=== PATIENT | female | born 1960 | race Two or more races ===

== ENCOUNTER 2020-05-31 09:01 | Outpatient (REF) | payer OTHER, SELFPAY ==
[2020-05-31 10:56] LABS: Alanine Aminotransferase 23 U/L (0-31); Albumin Level 4.5 g/dL (3.5-5.0); Alkaline Phosphatase 49 U/L (39-117); Anion Gap 11 (12-20); Aspartate Amino Transferase 25 U/L (5-31); Bilirubin Total 0.8 mg/dL (0.0-1.0); Blood Urea Nitrogen 10 mg/dL (9-16); Calcium 9.3 mg/dL (8.4-10.2); Carbon Dioxide 30 mmol/L (22-29); Chloride 102 mmol/L (96-108); Cholesterol 191 mg/dL; Estimated Glomerular Filt Rate > 60; Glucose Fasting 94 mg/dL (60-99); HDL Cholesterol 49 mg/dL; LDL Cholesterol Calculated 113 mg/dl; Sodium 139 mmol/L (135-145); Total Protein 7.6 g/dL (6.5-8.0); Triglycerides 146 mg/dL
[2020-05-31 11:33] LABS: T4 Thyroxine 9.1 ug/dL (4.5-12.0)
== END 2020-05-31 09:02 | disposition home or self-care (01) ==
LOC: HO.10HDL 09:01
PROVIDERS: Visit Provider Internal Medicine
DX: E03.9 Hypothyroidism, unspecified (principal); E78.00 Pure hypercholesterolemia, unspecified; K21.9 Gastro-esophageal reflux disease without esophagitis
CPT/HCPCS: 36415; 80053; 80061; 84436; 84443

== ENCOUNTER 2020-06-20 09:28 | Outpatient (REF) | payer OTHER, SELFPAY ==
--- NOTE | ~2020-06-20 | MM_ITS ---
EXAMINATION: MM SCREENING DIGITAL BREAST TOMOSYNTHESIS, BILATERAL CLINICAL INFORMATION: Screening. Asymptomatic. The lifetime risk of breast cancer based on the Tyrer-Cuzick Model is 12%. COMPARISON: Mammography: 06/15/2019, 03/05/2018, 01/29/2017 TECHNIQUE: Digital breast tomosynthesis is performed in both the craniocaudal and mediolateral oblique views along with computer-aided detection (CAD). Synthesized 2D images are generated from the tomosynthesis. FINDINGS: There are scattered areas of fibroglandular density (ACR BI-RADS breast composition Category b). Breast tissue composition borders on heterogeneously dense. There are no significant masses, abnormal calcifications, or other abnormalities. There are scattered punctate uniform round calcifications again present more numerous on right, similar to prior studies. The axilla and skin contours are unremarkable. MM/MM tomosynthesis screening BI IMPRESSION: No mammographic evidence of malignancy. ASSESSMENT: BI-RADS 2: Benign RECOMMENDATION: Routine annual mammography screening. This patient's information was entered into a reminder system with a target due date for their next mammogram.
== END 2020-06-20 09:29 | disposition home or self-care (01) ==
LOC: HO.MAMMO 09:28
PROVIDERS: PCP Internal Medicine; Visit Provider Internal Medicine
DX: Z12.31 Encounter for screening mammogram for malignant neoplasm of breast (principal)
CPT/HCPCS: 77063; 77067

== ENCOUNTER 2020-07-18 07:40 | Outpatient (REF) | payer OTHER, SELFPAY ==
[2020-07-18 08:25] LABS: COVID-19 Test Negative (Negative)
== END 2020-07-18 07:41 | disposition home or self-care (01) ==
LOC: HO.LAB 07:40
PROVIDERS: Visit Provider Internal Medicine
DX: Z20.822 Contact with and (suspected) exposure to COVID-19 (principal)
CPT/HCPCS: 36415; 87635; C9803

== ENCOUNTER 2020-09-22 09:01 | Outpatient (REF) | payer OTHER, SELFPAY ==
[2020-09-22 10:19] LABS: MANUAL DIFF FLAG NO
[2020-09-22 10:27] LABS: Basophils Percent Auto 0.6 % (0-2); Eosinophils Absolute Auto 0.1 X10*3/uL (0.0-0.4); Eosinophils Percent Auto 2.6 % (0-4); Hematocrit 40.2 % (37-47); Hemoglobin 13.4 g/dl (12.0-16.0); Imm Gran Abs Auto 0.01 X10*3/uL (0.00-0.03); Imm Gran Pct Auto 0.2 % (0.0-0.4); Lymphocytes Absolute Auto 1.6 X10*3/uL (1.2-4.9); Lymphocytes Percent Auto 32.6 % (20-40); Mean Corpuscular HGB Conc 33.3 g/dl (31.0-35.0); Mean Corpuscular Hemoglobin 30.8 pg (27.0-33.0); Mean Corpuscular Volume 92.4 fL (80-98); Mean Platelet Volume 10.3 fL (9.4-12.3); Monocytes Absolute Auto 0.4 X10*3/uL (0.1-1.2); Monocytes Percent Auto 8.2 % (2-11); Neutrophils Absolute Auto 2.8 X10*3/uL (2.0-8.3); Neutrophils Percent Auto 55.8 % (45-73); Platelet Count 320 X10*3/uL (160-400); Red Blood Count 4.35 X10*6/uL (4.20-5.50); Red Cell Distribution Width 12.1 % (11.0-16.0)
[2020-09-22 11:14] LABS: Thyroid Stimulating Hormone 1.57 uIU/mL (0.32-4.0)
== END 2020-09-22 09:02 | disposition home or self-care (01) ==
LOC: HO.10HDL 09:01
PROVIDERS: PCP Internal Medicine; Visit Provider Internal Medicine
DX: E03.9 Hypothyroidism, unspecified (principal)
CPT/HCPCS: 36415; 84439; 84443; 85025

== ENCOUNTER → 2020-10-27 13:40 | Outpatient (BNVA) | payer OTHER, SELFPAY | PROVIDERS: PCP Internal Medicine; Referring Provider Internal Medicine; Visit Provider Nurse Practitioner | DX: K58.9 Irritable bowel syndrome, unspecified (principal); R14.0 Abdominal distension (gaseous); K21.9 Gastro-esophageal reflux disease without esophagitis; K64.9 Unspecified hemorrhoids; K29.50 Unspecified chronic gastritis without bleeding | CPT/HCPCS: 99212 ==

== ENCOUNTER 2021-04-04 13:36 | Outpatient (REF) | payer OTHER, SELFPAY | END 2021-04-04 13:37 | disposition home or self-care (01) | LOC: HO.LAB 13:36 | PROVIDERS: PCP Internal Medicine; Visit Provider Obstetrics & Gynecology | DX: N84.1 Polyp of cervix uteri (principal) | CPT/HCPCS: 57500; 88305 ==

== ENCOUNTER 2021-05-08 09:30 | Outpatient (REF) | payer OTHER, SELFPAY ==
[2021-05-08 10:39] LABS: MANUAL DIFF FLAG NO
[2021-05-08 10:46] LABS: Basophils Percent Auto 0.7 % (0-2); Eosinophils Absolute Auto 0.2 X10*3/uL (0.0-0.4); Hematocrit 40.4 % (37.0-47.0); Hemoglobin 13.6 g/dl (12.0-16.0); Imm Gran Abs Auto 0.01 X10*3/uL (0.00-0.03); Imm Gran Pct Auto 0.2 % (0.0-0.4); Lymphocytes Percent Auto 35.6 % (20-40); Mean Corpuscular HGB Conc 33.7 g/dl (31.0-35.0); Mean Corpuscular Hemoglobin 31.5 pg (27.0-33.0); Mean Corpuscular Volume 93.5 fL (80.0-98.0); Mean Platelet Volume 10.6 fL (9.4-12.3); Monocytes Absolute Auto 0.4 X10*3/uL (0.1-1.2); Monocytes Percent Auto 7.2 % (2-11); Neutrophils Percent Auto 53.3 % (45-73); Platelet Count 296 X10*3/uL (160-400); Red Blood Count 4.32 X10*6/uL (4.20-5.50); Red Cell Distribution Width 11.9 % (11.0-16.0); White Blood Count 5.7 X10*3/uL (4.8-10.8)
[2021-05-08 11:09] LABS: Appearance Urine CLEAR; Color Urine YELLOW; Glucose Urine UA NEG (NEG); Leukocyte Esterase Urine NEG (NEG); Nitrite Urine NEG (NEG); Specific Gravity - Urine 1.025 (1.005-1.025); Urine Blood NEG (NEG); Urine Ketones NEG (NEG); Urine Protein NEG (NEG-TRACE)
[2021-05-08 11:26] LABS: Alanine Aminotransferase 19 U/L (0-31); Albumin Level 4.3 g/dL (3.5-5.0); Alkaline Phosphatase 51 U/L (39-117); Anion Gap 11 (12-20); Aspartate Amino Transferase 19 U/L (5-31); Bilirubin Total 0.6 mg/dL (0.0-1.0); Blood Urea Nitrogen 11 mg/dL (9-16); Calcium 9.4 mg/dL (8.4-10.2); Carbon Dioxide 30 mmol/L (22-29); Chloride 105 mmol/L (96-108); Cholesterol 173 mg/dL; Estimated Glomerular Filt Rate > 60; Glucose Random 95 mg/dL (60-115); HDL Cholesterol 41 mg/dL; LDL Cholesterol Calculated 103 mg/dl; Potassium 4.2 mmol/L (3.3-5.1); Sodium 142 mmol/L (135-145); Total Protein 7.5 g/dL (6.5-8.0); Triglycerides 149 mg/dL
[2021-05-08 11:32] LABS: Vitamin D 25-OH Total 25.5 ng/mL (>30)
[2021-05-08 11:33] LABS: Folate 11.3 ng/mL (> or = 4.0); Vitamin B12 854 pg/mL (200-900)
[2021-05-08 11:48] LABS: RBC Urine 0-2 /HPF (0); Squamous Epithelial Cell Urine 1+ /LPF; WBC Urine 0-2 /HPF (0-4)
== END 2021-05-08 09:31 | disposition home or self-care (01) ==
LOC: HO.10HDL 09:30
PROVIDERS: Visit Provider Internal Medicine
DX: E78.00 Pure hypercholesterolemia, unspecified (principal)
CPT/HCPCS: 36415; 80053; 80061; 81001; 82306; 82607; 82746; 84439; 84443; 85025

== ENCOUNTER 2021-06-21 09:05 | Outpatient (REF) | payer OTHER, SELFPAY ==
--- NOTE | ~2021-06-21 | US_ITS ---
EXAMINATION: US ABDOMEN COMPLETE CLINICAL INFORMATION: Right upper quadrant pain. COMPARISON: Ultrasound abdomen complete 03/19/2019 and 10/25/2017. CT of abdomen and pelvis 05/24/2017. TECHNIQUE: Real-time imaging of the abdominal viscera. Technically limited study secondary to bowel gas. FINDINGS: PANCREAS: The pancreas is obscured by overlying gas. ABDOMINAL AORTA: The entire abdominal aorta is of normal caliber. INFERIOR VENA CAVA: Visualized portions are normal. LIVER: The liver is normal in size. The liver contour is normal. The liver is increased echogenicity. No focal hepatic lesion. There is no intrahepatic biliary duct dilatation seen. GALLBLADDER: Normal. The gallbladder is physiologically distended without evidence of stones, sludge, polyps, wall thickening or pericholecystic fluid. COMMON BILE DUCT: Normal in caliber measuring 0.4 cm in diameter. RIGHT KIDNEY: Normal. No hydronephrosis. No renal calculi or focal parenchymal lesions. The kidney measures 10.8 cm in maximum dimension. LEFT KIDNEY: Normal. No hydronephrosis. No renal calculi or focal parenchymal lesions. The kidney measures 10.2 cm in maximum dimension. SPLEEN: There is anechoic cyst measuring 1.5 x 1.0 x 1.3 cm. On the last ultrasound, it measured 1.2 x 1 0 x 1.2 cm. The spleen measures 9.5 cm in maximum dimension. FREE FLUID: None. US/US abdomen complete IMPRESSION: Mild hepatic steatosis without focal lesion. This splenic cyst measuring 1.5 cm. Minimally increased since the last time. It measured 1.2 cm.
== END 2021-06-21 09:06 | disposition home or self-care (01) ==
LOC: HO.US 09:05
PROVIDERS: Visit Provider Internal Medicine
DX: R79.89 Other specified abnormal findings of blood chemistry (principal); R10.11 Right upper quadrant pain
CPT/HCPCS: 76700

== ENCOUNTER 2021-06-21 12:00 | Outpatient (REF) | payer OTHER, SELFPAY ==
--- NOTE | ~2021-06-21 | MM_ITS ---
EXAMINATION: MM SCREENING DIGITAL BREAST TOMOSYNTHESIS, BILATERAL CLINICAL INFORMATION: Screening. Asymptomatic. The lifetime risk of breast cancer based on the Tyrer-Cuzick Model is 11%. COMPARISON: Mammography: 06/20/2020, 06/15/2019, 03/05/2018 TECHNIQUE: Digital breast tomosynthesis is performed in both the craniocaudal and mediolateral oblique views along with computer-aided detection (CAD). Synthesized 2D images are generated from the tomosynthesis. FINDINGS: There are scattered areas of fibroglandular density (ACR BI-RADS breast composition Category b). There are no significant masses, abnormal calcifications, or other abnormalities. Parenchymal pattern is similar to prior studies. There is no developing density or architectural abnormality. The axilla and skin contours are unremarkable. No significant changes. MM/MM tomosynthesis screening BI IMPRESSION: No mammographic evidence of malignancy. ASSESSMENT: BI-RADS 1: Negative RECOMMENDATION: Routine annual mammography screening. This patient's information was entered into a reminder system with a target due date for their next mammogram.
== END 2021-06-21 12:01 | disposition home or self-care (01) ==
LOC: HO.MAMMO 12:00
PROVIDERS: PCP Internal Medicine; Visit Provider Internal Medicine
DX: Z12.31 Encounter for screening mammogram for malignant neoplasm of breast (principal)
CPT/HCPCS: 77063; 77067

== ENCOUNTER 2021-09-07 10:13 | Outpatient (REF) | payer OTHER, SELFPAY ==
--- NOTE | ~2021-09-07 | XR_ITS ---
EXAMINATION: XR CHEST CLINICAL INFORMATION: Covid 19 COMPARISON: 12/15/2017 TECHNIQUE: 2 views of the chest were obtained. FINDINGS: The lungs are well expanded. There is no focal consolidation, edema, or effusion. No pneumothorax. The cardiomediastinal silhouette is within normal limits. No acute osseous abnormality. XR/XR chest 2V IMPRESSION: Clear lungs.
[2021-09-07 10:26] LABS: MANUAL DIFF FLAG NO
[2021-09-07 11:18] LABS: Basophils Absolute Auto 0.1 X10*3/uL (0.0-0.2); Basophils Percent Auto 0.8 % (0-2); Eosinophils Absolute Auto 0.1 X10*3/uL (0.0-0.4); Eosinophils Percent Auto 1.8 % (0-4); Hematocrit 40.4 % (37.0-47.0); Hemoglobin 13.8 g/dl (12.0-16.0); Imm Gran Abs Auto 0.02 X10*3/uL (0.00-0.03); Imm Gran Pct Auto 0.3 % (0.0-0.4); Lymphocytes Absolute Auto 1.8 X10*3/uL (1.2-4.9); Lymphocytes Percent Auto 29.2 % (20-40); Mean Corpuscular HGB Conc 34.2 g/dl (31.0-35.0); Mean Corpuscular Hemoglobin 31.1 pg (27.0-33.0); Mean Platelet Volume 10.5 fL (9.4-12.3); Monocytes Absolute Auto 0.5 X10*3/uL (0.1-1.2); Monocytes Percent Auto 8.8 % (2-11); Neutrophils Absolute Auto 3.5 x10*3/uL (2.0-8.3); Neutrophils Percent Auto 59.1 % (45-73); Platelet Count 292 X10*3/uL (160-400); Red Blood Count 4.44 X10*6/uL (4.20-5.50); Red Cell Distribution Width 12.1 % (11.0-16.0)
[2021-09-07 12:23] LABS: Free T4 (Free Thyroxine) 1.45 ng/dL (0.71-1.85); Thyroid Stimulating Hormone 0.67 uIU/mL (0.32-4.0)
[2021-09-07 12:28] LABS: Folate 12.1 ng/mL (> or = 4.0); Vitamin B12 1323 pg/mL (200-900)
[2021-09-07 12:29] LABS: Blood Urea Nitrogen 11 mg/dL (9-16)
[2021-09-07 12:31] LABS: Alanine Aminotransferase 25 U/L (0-31); Albumin Level 4.5 g/dL (3.5-5.0); Alkaline Phosphatase 52 U/L (39-117); Anion Gap 13 (12-20); Aspartate Amino Transferase 24 U/L (5-31); Bilirubin Total 0.9 mg/dL (0.0-1.0); Carbon Dioxide 29 mmol/L (22-29); Chloride 102 mmol/L (96-108); Estimated Glomerular Filt Rate > 60; Glucose Random 90 mg/dL (60-115); Potassium 4.5 mmol/L (3.3-5.1); Sodium 139 mmol/L (135-145); Total Protein 7.9 g/dL (6.5-8.0)
== END 2021-09-07 10:14 | disposition home or self-care (01) ==
LOC: HO.LAB 10:13
PROVIDERS: PCP Internal Medicine; Visit Provider Internal Medicine
DX: E03.9 Hypothyroidism, unspecified (principal); U07.1 COVID-19
CPT/HCPCS: 36415; 71046; 80053; 82607; 82746; 84439; 84443; 85025

== ENCOUNTER 2022-04-18 08:51 | Outpatient (REF) | payer OTHER, SELFPAY ==
--- NOTE | 2022-04-18 09:51 | PFT_ITS ---
FLOWS: FEV1 104% of predicted at 2.68 L. FVC 97% of predicted at 3.15 L. FEV1 to FVC ratio of 0.85. No bronchodilator response. LUNG VOLUMES: Total lung capacity 94% of predicted at 4.77 L. Residual volume 73% of predicted at 1.45 L. Slow vital capacity 107% of predicted at 3.31 L. Expiratory reserve volume 71% of predicted at 0.63 L. Diffusion capacity is normal. IMPRESSION: No obstructive or restrictive ventilatory defect. No bronchodilator response. Essentially normal pulmonary function test. MD ESME Lewis/MODL / [id number]
== END 2022-04-18 08:52 | disposition home or self-care (01) ==
LOC: HO.RESP 08:51
PROVIDERS: PCP Internal Medicine; Visit Provider Internal Medicine
DX: R06.02 Shortness of breath (principal)
CPT/HCPCS: 94060; 94727; 94729

== ENCOUNTER 2022-05-23 10:56 | Outpatient (REF) | payer OTHER, SELFPAY ==
[2022-05-23 17:43] LABS: CT PCR NOT DETECTED (Not Detect.); NG PCR NOT DETECTED (Not Detect.)
[2022-05-24 13:15] LABS: BV Int Neg Control Negative (Negative); BV Int Pos Control Positive (Positive)
[2022-05-28 05:24] LABS: HPV mRNA E6/E7 rflx Not Detected (Not Detected)
== END 2022-05-23 10:57 | disposition home or self-care (01) ==
LOC: HO.LNP 10:56
PROVIDERS: PCP Internal Medicine; Visit Provider Advanced Practice Midwife
DX: Z01.419 Encounter for gynecological examination (general) (routine) without abnormal findings (principal); K64.9 Unspecified hemorrhoids; M79.10 Myalgia, unspecified site; Z79.899 Other long term (current) drug therapy
CPT/HCPCS: 0353U; 87480; 87510; 87624; 87660; 88142

== ENCOUNTER 2022-05-27 08:11 | Outpatient (REF) | payer OTHER, SELFPAY ==
[2022-05-27 08:22] LABS: MANUAL DIFF FLAG NO
[2022-05-27 08:26] LABS: Basophils Percent Auto 0.7 % (0-2); Eosinophils Absolute Auto 0.1 X10*3/uL (0.0-0.4); Eosinophils Percent Auto 1.6 % (0-4); Hemoglobin 13.7 g/dl (12.0-16.0); Imm Gran Abs Auto 0.01 X10*3/uL (0.00-0.03); Imm Gran Pct Auto 0.2 % (0.0-0.4); Lymphocytes Percent Auto 36.6 % (20-40); Mean Corpuscular HGB Conc 34.3 g/dl (31.0-35.0); Mean Corpuscular Hemoglobin 31.4 pg (27.0-33.0); Mean Corpuscular Volume 91.5 fL (80.0-98.0); Mean Platelet Volume 9.9 fL (9.4-12.3); Monocytes Absolute Auto 0.4 X10*3/uL (0.1-1.2); Monocytes Percent Auto 7.2 % (2-11); Neutrophils Percent Auto 53.7 % (45-73); Platelet Count 288 X10*3/uL (160-400); Red Blood Count 4.37 X10*6/uL (4.20-5.50); Red Cell Distribution Width 11.9 % (11.0-16.0); White Blood Count 5.6 X10*3/uL (4.8-10.8)
[2022-05-27 08:56] LABS: Alanine Aminotransferase 18 U/L (0-31); Albumin Level 4.3 g/dL (3.5-5.0); Alkaline Phosphatase 46 U/L (39-117); Anion Gap 13 (12-20); Aspartate Amino Transferase 18 U/L (5-31); Bilirubin Total 0.7 mg/dL (0.0-1.0); Blood Urea Nitrogen 12 mg/dL (9-16); Calcium 9.4 mg/dL (8.4-10.2); Carbon Dioxide 28 mmol/L (22-29); Chloride 104 mmol/L (96-108); Cholesterol 182 mg/dL; Estimated Glomerular Filt Rate > 60; Glucose Random 99 mg/dL (60-115); HDL Cholesterol 44 mg/dL; LDL Cholesterol Calculated 113 mg/dl; Sodium 141 mmol/L (135-145); Total Protein 7.3 g/dL (6.5-8.0); Triglycerides 129 mg/dL
[2022-05-27 09:24] LABS: Thyroid Stimulating Hormone 1.46 uIU/mL (0.32-4.0); Vitamin B12 700 pg/mL (200-900); Vitamin D 25-OH Total 26.9 ng/mL (>30)
== END 2022-05-27 08:12 | disposition home or self-care (01) ==
LOC: HO.LAB 08:11
PROVIDERS: PCP Internal Medicine; Visit Provider Internal Medicine
DX: E03.9 Hypothyroidism, unspecified (principal); E78.00 Pure hypercholesterolemia, unspecified
CPT/HCPCS: 36415; 80053; 80061; 82306; 82607; 82746; 84439; 84443; 85025

== ENCOUNTER 2022-06-25 08:16 | Outpatient (REF) | payer OTHER, SELFPAY ==
--- NOTE | ~2022-06-25 | MM_ITS ---
EXAMINATION: MM SCREENING DIGITAL BREAST TOMOSYNTHESIS, BILATERAL CLINICAL INFORMATION: Screening. Asymptomatic. The lifetime risk of breast cancer based on the Tyrer-Cuzick Model is 11%. COMPARISON: Mammography: 06/21/2021, 06/20/2020, 06/15/2019 TECHNIQUE: Digital breast tomosynthesis is performed in both the craniocaudal and mediolateral oblique views along with computer-aided detection (CAD). Synthesized 2D images are generated from the tomosynthesis. FINDINGS: There are scattered areas of fibroglandular density (ACR BI-RADS breast composition Category b). There are no significant masses, abnormal calcifications, or other abnormalities. Breast tissue composition borders on heterogeneously dense. No architectural abnormality or developing density or significant change from prior studies. The axilla and skin contours are unremarkable. MM/MM tomosynthesis screening BI IMPRESSION: No mammographic evidence of malignancy. ASSESSMENT: BI-RADS 1: Negative RECOMMENDATION: Routine annual mammography screening. This patient's information was entered into a reminder system with a target due date for their next mammogram.
== END 2022-06-25 08:17 | disposition home or self-care (01) ==
LOC: HO.MAMMO 08:16
PROVIDERS: PCP Internal Medicine; Visit Provider Internal Medicine
DX: Z12.31 Encounter for screening mammogram for malignant neoplasm of breast (principal)
CPT/HCPCS: 77063; 77067

== ENCOUNTER → 2022-08-23 10:41 | Outpatient (BNVA) | payer OTHER, SELFPAY | PROVIDERS: PCP Internal Medicine; Visit Provider Nurse Practitioner Family | DX: Z12.11 Encounter for screening for malignant neoplasm of colon (principal) | CPT/HCPCS: 99202 ==

== ENCOUNTER 2022-11-17 21:03 | Emergency (ER) | payer OTHER, SELFPAY ==
--- NOTE | ~2022-11-17 | CT_ITS ---
EXAMINATION: CT ABDOMEN AND PELVIS WITH CONTRAST CLINICAL INFORMATION: Epigastric pain. COMPARISON: 05/24/2017. TECHNIQUE: Multidetector volumetric images were obtained from the superior aspect of the liver through the pubic symphysis following administration 85 mL of Omnipaque 350 intravenous contrast. Sagittal and coronal reformatted images were obtained on the technologist's workstation. Oral contrast: No This CT examination was performed using dose optimization techniques as appropriate, variously including the following: *Automated exposure control *Adjustment of mA and/or kV according to patient size (this includes techniques or standardized protocols for targeted exams where dose is matched to indication/reason for exam; i.e. extremities or head) *Use of iterative reconstruction technique DLP: 537 mGy-cm FINDINGS: LUNG BASES: The visualized lung bases are unremarkable. LIVER, GALLBLADDER, AND BILIARY TREE: The liver is normal in size, shape, and attenuation. No focal hepatic lesion or biliary ductal dilatation is present. The gallbladder is unremarkable with no evidence of radiopaque gallstones, gallbladder wall thickening, or obvious pericholecystic inflammatory changes. PANCREAS: Unremarkable. SPLEEN: There is a 1.1 cm cyst inferior spleen. ADRENAL GLANDS: Unremarkable. KIDNEYS AND URETERS: The kidneys are normal in size, shape, and attenuation. No hydronephrosis, hydroureter, or calculi seen. No perinephric stranding. BLADDER: Unremarkable. GASTROINTESTINAL TRACT: The small and large bowel are unremarkable. The appendix is unremarkable. ABDOMINAL WALL: No significant hernia is appreciated. LYMPH NODES: Normal. VASCULAR: Unremarkable. PELVIC VISCERA: Unremarkable. OSSEOUS STRUCTURES: There is mild diffuse thoracolumbar disc degenerative change with mild curvature to the left. CT/CT abdomen pelvis w IV con IMPRESSION: No significant abnormality identified. Fleischner guidelines were followed.
[2022-11-17 21:32] VITALS: BP 153/79; PULSE 64; RESP 18; TEMP 36.1; O2SAT 98; BMI 27.6
--- NOTE | 2022-11-17 22:02 | ECG_ITS ---
Test Reason : ABDOMIAL PAIN Blood Pressure : / mmHG Vent. Rate : 061 BPM Atrial Rate : 061 BPM P-R Int : 154 ms QRS Dur : 084 ms QT Int : 448 ms P-R-T Axes : 064 004 026 degrees QTc Int : 450 ms Normal sinus rhythm Normal ECG When compared with ECG of 24-MAY-2017 01:07, No significant change was found Referred By: Jada Timmons Electronically Signed By:ELOISA CASTANEDA MD
--- NOTE | 2022-11-17 22:06 | ED_ITS ---
HPI - Abdominal Pain General Chief Complaint: Abdominal Pain Stated Complaint: abd pain/headache Time Seen by Provider: 11/17/22 21:57 Source: patient Mode of arrival: ambulatory Limitations: no limitations History of Present Illness HPI narrative: Patient comes to the emergency room complaining of epigastric pain nausea and vomiting that started approximately 3-1/2 hours ago. Patient states that she ate dinner and less than 1/2 hour later, she started having intense epigastric pain and headache. Patient vomited once. Patient denies diarrhea, no flank pain, no dysuria or hematuria, no fever Related Data Home Medications Medication Instructions Recorded Confirmed triamcinolone acetonide 55 mcg intranasal 10/20/20 09/17/22 mcg/actuation nasal spray,aerosol Previous Rx's Medication Instructions Recorded cetirizine 10 mg tablet 10 mg PO DAILY PRN allergy 01/22/21 symptoms 90 days #90 tabs Synthroid 125 mcg tablet 125 mcg PO DAILY #90 tabs 09/07/21 (levothyroxine) simvastatin 5 mg tablet 5 mg PO BEDTIME #90 tabs 10/03/21 simethicone 180 mg capsule 180 mg PO TID #90 caps 01/11/22 (Anti-Gas Ultra Strength) hydrocortisone 2.5 % topical cream 1 appl CO TID PRN hemorrhoids #30 03/19/22 with perineal applicator grams (Proctosol HC) bisacodyl 5 mg tablet,delayed 10 mg PO ONCE 1 day #2 tabs 08/23/22 release (Dulcolax (bisacodyl)) polyethylene glycol 3350 17 238 g PO ONCE #238 grams 08/23/22 gram/dose oral powder (Miralax) zolpidem 10 mg tablet 10 mg PO BEDTIME PRN insomnia #30 09/05/22 tabs omeprazole 40 mg capsule,delayed 40 mg PO DAILY #30 caps 11/18/22 release Allergies Allergy/AdvReac Type Severity Reaction Status Date / Time No Known Allergies Allergy Verified 11/17/22 21:31 [No Known Allergies*] Review of Systems Review of Systems Constitutional : No Weight loss, No Fever, No Chills, No Night Sweats, No Fatigue, No Malaise ENT/Mouth : No Hearing loss, No Ear Pain, No Nasal Congestion, No Sinus Pain, No Hoarseness, No sore throat, No Rhinorrhea, No Swallowing Difficulty Eyes: No Eye Pain, No Swelling, No Redness, No Foreign Body, No Discharge, No Vision Changes Cardiovascular : No Chest Pain, No SOB, No Dyspnea on Exertion, No Orthopnea, No Edema, No Palpitations Respiratory : No Cough, No Sputum, No Wheezing, No Smoke Exposure, No Dyspnea Gastrointestinal : Patient complaining of nausea, vomiting, no diarrhea consti pation, complaining of epigastric pain Genitourinary : no irregular bleeding, No Dysuria, No Urinary Frequency, No Hematuria, No Urinary Incontinence, No Urgency, No Flank Pain, No Urinary Flow Changes, No Hesitancy Musculoskeletal : No joint pain, No Myalgias, No Joint Swelling Skin : No Skin Lesions, No rash Neuro : No Weakness, No Numbness, No Paresthesias, No Loss of Consciousness, No Dizziness, No Headache Psych : No Anxiety/Panic, No Depression, No SI/HI/AH/VH, No Social Issues, Heme/Lymph: No Bruising, No Bleeding,No Lymphadenopathy Endocrine : No Polyuria, No Polydipsia, No Temperature Intolerance [facility] Past Medical History Medical History Abdominal bloating Anemia Cervical cancer screening Endocervical polyp Exposure to COVID-19 virus Facial lesion GERD (gastroesophageal reflux disease) Hematuria History of renal calculi Hypercholesterolemia Hypothyroid Insomnia Mixed stress and urge urinary incontinence Myalgia Obesity (BMI 30.0-34.9) Peripheral vascular disease RUQ abdominal pain SOB (shortness of breath) Vitamin D deficiency Well woman exam Women's annual routine gynecological examination Surgical History History of tubal ligation Family History Family History Father No problems noted. Mother Liver cancer Diabetes Hypertension Cirrhosis Paternal Aunt Breast cancer Father No problems noted. Mother Liver cancer Diabetes Hypertension Cirrhosis Paternal Aunt Breast cancer Social History Social History (Updated 09/17/22 @ 09:18 by Tanya Child MD) Housing: House Alcohol intake: current Alcohol intake frequency: holidays/special occasions only Patient Tobacco Use Status: Former Tobacco user Tobacco use type: Cigarette Years Smoked: 27 years old e-Cigarette/Vaping Use: Never Used Second Hand Smoke Exposure: No Advance Directives: No Advance Directives Information Provided: No service: No Current occupational status: unemployed Cognitive needs: No Hearing needs: No Vision needs: Yes Physical Exam ED Vital Signs: Vital Signs - 24 hr 11/17/22 21:32 11/17/22 22:50 11/17/22 22:45 Temperature 96.9 F 98.3 F Pulse Rate 64 66 Respiratory Rate 18 16 16 Blood Pressure 153/79 H 122/67 Pulse Oximetry 98 95 Oxygen Delivery Method Room Air Room Air BMI result Body Mass Index 27.6 Const Other: Appearance: Alert. Oriented X3. Seems uncomfortable, nauseous Eyes: Pupils equal, round and reactive to light. ENT: Pharynx normal. Neck: Normal inspection. Neck supple. No lymph nodes noted. No crepitus CVS: Normal heart rate and rhythm. Pulses normal. Normal S1 and S2 Respiratory: No respiratory distress. Breath sounds normal. No Wheezing. No rales Abdomen: Soft, pain to palpation in epigastric area, no rebound, no guarding, no rigidity Skin: Skin warm and dry. Normal skin color. Normal skin turgor. Extremities: No lower extremity edema. No Lacerations. No Rash Neuro: Oriented X 3. No motor deficit. No sensory deficit. Moving all extremities. No slurred speech. CN 2 through 12 grossly intact Psych: calm, cooperative, normal affect Course Course Course Narrative: -all the patient's labs are pending -depending on the labs, we will either get a CT scan or ultrasound -patient receiving IV fluids, Zofran and morphine -EKG pending Medical Decision Making Medical Decision Making [facility] Narrative: -my interpretation of labs: White blood cell count 14.1, chemistry unremarkable, LFTs normal, lipase negative -my interpretation CT scan, no free air in the abdomen -I discussed with the patient likely she has peptic ulcer disease, she may need an endoscopy. -deferred IV treatment, patient feeling much better, also, patient was given magic mouthwash to swallow Differential Diagnosis Differential Diagnoses: The differential diagnosis associated with the presentation includes (Peptic ulcer disease, pancreatitis, acute cholecystitis, perforation, gastritis) Admission/Observation Consideration of admission/observation: Escalation of care including admission/observation considered (When patient arrived, patient could barely walk due to the pain, admission was considered) Lab Data [facility] Lab Attestation statement: I reviewed the patient's lab results. 11/17/22 22:41 11/17/22 22:41 Labs: Lab Results 11/17/22 11/17/22 11/17/22 Range/Units 22:41 22:41 22:41 WBC 14.1 H (4.8-10.8) X10*3/uL RBC 4.70 (4.20-5.50) X10*6/uL Hgb 14.7 (12.0-16.0) g/dl Hct 42.9 (37.0-47.0) % MCV 91.3 (80.0-98.0) fL MCH 31.3 (27.0-33.0) pg MCHC 34.3 (31.0-35.0) g/dl RDW 11.7 (11.0-16.0) % Plt Count 269 (160-400) X10*3/uL MPV 9.9 (9.4-12.3) fL Immature Gran % (Auto) 0.4 (0.0-0.4) % Neut % (Auto) 84.3 H (45-73) % Lymph % (Auto) 8.7 L (20-40) % [place] % (Auto) 5.5 (2-11) % Eos % (Auto) 0.8 (0-4) % Baso % (Auto) 0.3 (0-2) % Lymph # (Auto) 1.2 (1.2-4.9) X10*3/uL [place] # (Auto) 0.8 (0.1-1.2) X10*3/uL Eos # (Auto) 0.1 (0.0-0.4) X10*3/uL Baso # (Auto) 0.0 (0.0-0.2) X10*3/uL Abs Immat Gran (auto) 0.05 H (0.00-0.03) X10*3/uL Absolute Neuts (auto) 11.9 H (2.0-8.3) x10*3/uL Absolute Nucleated RBC 0.000 (0.0-0.012) X10*3/uL Nucleated RBC % (auto) 0.0 (0.0-0.2) /100WBC Sodium (135-145) mmol/L Potassium (3.3-5.1) mmol/L Chloride (96-108) mmol/L Carbon Dioxide (22-29) mmol/L Anion Gap (12-20) BUN (9-16) mg/dL Creatinine (0.5-1.4) mg/dL Estim Creat Clear Calc Estimated GFR Random Glucose (60-115) mg/dL Lactic Acid (0.5-2.0) mmol/L Calcium (8.4-10.2) mg/dL Total Bilirubin (0.0-1.0) mg/dL Direct Bilirubin (0.0-0.5) mg/dL AST (5-31) U/L ALT (0-31) U/L Alkaline Phosphatase (39-117) U/L Troponin I High Sens (<3.5-17.0) ng/L Total Protein (6.5-8.0) g/dL Albumin (3.5-5.0) g/dL Lipase 38 (8-78) U/L Urine Color Urine Appearance Urine pH (5.0-9.0) Ur Specific [place] (1.005-1.025) Urine Protein (Neg-Trace) mg/dL Urine Glucose (UA) (Negative) mg/dL Urine Ketones (Negative) mg/dL Urine Blood (Negative) Urine Nitrite (Negative) Ur Leukocyte Esterase (Negative) Urine RBC (0-2) /HPF Urine WBC (0-5) /HPF Ur Squamous Epith Cells (0-2) /HPF Urine Bacteria (None Seen) Hyaline Casts (0-2) /LPF COVID-19 (ANIL) Negative (Negative) COVID-19 Clin Com See Note 11/17/22 11/17/22 11/17/22 Range/Units 22:41 22:41 22:41 WBC (4.8-10.8) X10*3/uL RBC (4.20-5.50) X10*6/uL Hgb (12.0-16.0) g/dl Hct (37.0-47.0) % MCV (80.0-98.0) fL MCH (27.0-33.0) pg MCHC (31.0-35.0) g/dl RDW (11.0-16.0) % Plt Count (160-400) X10*3/uL MPV (9.4-12.3) fL Immature Gran % (Auto) (0.0-0.4) % Neut % (Auto) (45-73) % Lymph % (Auto) (20-40) % [place] % (Auto) (2-11) % Eos % (Auto) (0-4) % Baso % (Auto) (0-2) % Lymph # (Auto) (1.2-4.9) X10*3/uL [place] # (Auto) (0.1-1.2) X10*3/uL Eos # (Auto) (0.0-0.4) X10*3/uL Baso # (Auto) (0.0-0.2) X10*3/uL Abs Immat Gran (auto) (0.00-0.03) X10*3/uL Absolute Neuts (auto) (2.0-8.3) x10*3/uL Absolute Nucleated RBC (0.0-0.012) X10*3/uL Nucleated RBC % (auto) (0.0-0.2) /100WBC Sodium 142 (135-145) mmol/L Potassium 3.5 (3.3-5.1) mmol/L Chloride 105 (96-108) mmol/L Carbon Dioxide 27 (22-29) mmol/L Anion Gap 14 (12-20) BUN 13 (9-16) mg/dL Creatinine 0.78 (0.5-1.4) mg/dL Estim Creat Clear Calc 72.3 Estimated GFR > 60 Random Glucose 111 (60-115) mg/dL Lactic Acid 1.3 (0.5-2.0) mmol/L Calcium 9.8 (8.4-10.2) mg/dL Total Bilirubin 0.5 (0.0-1.0) mg/dL Direct Bilirubin 0.2 (0.0-0.5) mg/dL AST 30 (5-31) U/L ALT 27 (0-31) U/L Alkaline Phosphatase 56 (39-117) U/L Troponin I High Sens < 2.7 (<3.5-17.0) ng/L Total Protein 8.0 (6.5-8.0) g/dL Albumin 4.5 (3.5-5.0) g/dL Lipase (8-78) U/L Urine Color Urine Appearance Urine pH (5.0-9.0) Ur Specific [place] (1.005-1.025) Urine Protein (Neg-Trace) mg/dL Urine Glucose (UA) (Negative) mg/dL Urine Ketones (Negative) mg/dL Urine Blood (Negative) Urine Nitrite (Negative) Ur Leukocyte Esterase (Negative) Urine RBC (0-2) /HPF Urine WBC (0-5) /HPF Ur Squamous Epith Cells (0-2) /HPF Urine Bacteria (None Seen) Hyaline Casts (0-2) /LPF COVID-19 (ANIL) (Negative) COVID-19 Clin Com 11/17/22 Range/Units 23:49 WBC (4.8-10.8) X10*3/uL RBC (4.20-5.50) X10*6/uL Hgb (12.0-16.0) g/dl Hct (37.0-47.0) % MCV (80.0-98.0) fL MCH (27.0-33.0) pg MCHC (31.0-35.0) g/dl RDW (11.0-16.0) % Plt Count (160-400) X10*3/uL MPV (9.4-12.3) fL Immature Gran % (Auto) (0.0-0.4) % Neut % (Auto) (45-73) % Lymph % (Auto) (20-40) % [place] % (Auto) (2-11) % Eos % (Auto) (0-4) % Baso % (Auto) (0-2) % Lymph # (Auto) (1.2-4.9) X10*3/uL [place] # (Auto) (0.1-1.2) X10*3/uL Eos # (Auto) (0.0-0.4) X10*3/uL Baso # (Auto) (0.0-0.2) X10*3/uL Abs Immat Gran (auto) (0.00-0.03) X10*3/uL Absolute Neuts (auto) (2.0-8.3) x10*3/uL Absolute Nucleated RBC (0.0-0.012) X10*3/uL Nucleated RBC % (auto) (0.0-0.2) /100WBC Sodium (135-145) mmol/L Potassium (3.3-5.1) mmol/L Chloride (96-108) mmol/L Carbon Dioxide (22-29) mmol/L Anion Gap (12-20) BUN (9-16) mg/dL Creatinine (0.5-1.4) mg/dL Estim Creat Clear Calc Estimated GFR Random Glucose (60-115) mg/dL Lactic Acid (0.5-2.0) mmol/L Calcium (8.4-10.2) mg/dL Total Bilirubin (0.0-1.0) mg/dL Direct Bilirubin (0.0-0.5) mg/dL AST (5-31) U/L ALT (0-31) U/L Alkaline Phosphatase (39-117) U/L Troponin I High Sens (<3.5-17.0) ng/L Total Protein (6.5-8.0) g/dL Albumin (3.5-5.0) g/dL Lipase (8-78) U/L Urine Color Yellow Urine Appearance Clear Urine pH 6.5 (5.0-9.0) Ur Specific [place] 1.015 (1.005-1.025) Urine Protein Trace (Neg-Trace) mg/dL Urine Glucose (UA) Negative (Negative) mg/dL Urine Ketones Negative (Negative) mg/dL Urine Blood Negative (Negative) Urine Nitrite Negative (Negative) Ur Leukocyte Esterase Moderate (2+) H (Negative) Urine RBC 6-10 H (0-2) /HPF Urine WBC 0-5 (0-5) /HPF Ur Squamous Epith Cells 3-5 (0-2) /HPF Urine Bacteria Trace (None Seen) Hyaline Casts 0-2 (0-2) /LPF COVID-19 (ANIL) (Negative) COVID-19 Clin Com Independent Interpretation I performed an independent interpretation of an: CT Scan Radiology Impression Discussion of test interpretation with radiology: I have reviewed the radiologist's reading. Radiologist Impression: FINDINGS: LUNG BASES: The visualized lung bases are unremarkable.? LIVER, GALLBLADDER, AND BILIARY TREE: The liver is normal in size, shape, and attenuation. No focal hepatic lesion or biliary ductal dilatation is present. The gallbladder is unremarkable with no evidence of radiopaque gallstones, gallbladder wall thickening, or obvious pericholecystic inflammatory changes.? PANCREAS: Unremarkable.? SPLEEN: There is a 1.1 cm cyst inferior spleen. ADRENAL GLANDS: Unremarkable.? KIDNEYS AND URETERS: The kidneys are normal in size, shape, and attenuation. No hydronephrosis, hydroureter, or calculi seen. No perinephric stranding. ? BLADDER: Unremarkable.? GASTROINTESTINAL TRACT: The small and large bowel are unremarkable. The appendix is unremarkable.? ABDOMINAL WALL: No significant hernia is appreciated.? LYMPH NODES: Normal. VASCULAR: Unremarkable. PELVIC VISCERA: Unremarkable.? OSSEOUS STRUCTURES: There is mild diffuse thoracolumbar disc degenerative change with mild curvature to the left.? CT/CT abdomen pelvis w IV con IMPRESSION: ? No significant abnormality identified. ? Fleischner guidelines were followed. Medications Administered Discontinued Medications Generic Name Dose Route Start Last Admin Trade Name Freq PRN Reason Stop Dose Admin Sodium Chloride 1,000 mls @ 999 mls/hr 11/17/22 22:04 11/17/22 23:49 Ns IVCONT 11/17/22 23:04 Infused .Q1H1M ONE Infusion Iohexol 85 ml 11/18/22 00:46 11/18/22 00:47 Iohexol 350 Mg/Ml 100 Ml Infus..Btl IV 11/18/22 00:47 85 ml ONCE ONE Administration Morphine Sulfate 4 mg 11/17/22 22:04 11/17/22 22:50 Morphine Sulfate 4 Mg/Ml Cartridge IVPUSH 11/17/22 22:05 4 mg ONCE ONE Administration Protocol Ondansetron HCl 4 mg 11/17/22 22:04 11/17/22 22:50 Ondansetron Hcl 4 Mg/2 Ml Vial IVPUSH 11/17/22 22:05 4 mg ONCE ONE Administration Critical Care Time Critical Care Time Critical Care Time: Yes Total Critical Care Time: 60 Attestation: I have personally provided critical care time. Time includes review of lab data, radiology results, discussion with consultants, and monitoring for potential decompensation. Intervention performed as documented. Discharge Plan Discharge Clinical Impression: Peptic ulcer disease Patient Disposition: Home, Self-Care Instructions: Peptic Ulcer (ED), Diet for Stomach Ulcers and Gastritis (ED) Additional Instructions: Please follow-up with your primary care physician tomorrow. If you have any worsening or new symptoms, please return to the emergency room or call 911 Prescriptions: New omeprazole 40 mg capsule,delayed release(DR/EC) 40 mg PO DAILY Qty: 30 1RF No Action simvastatin 5 mg tablet 5 mg PO BEDTIME Qty: 90 3RF simethicone [Anti-Gas Ultra Strength] 180 mg capsule 180 mg PO TID Qty: 90 6RF zolpidem 10 mg tablet 10 mg PO BEDTIME PRN (Reason: insomnia) Qty: 30 2RF triamcinolone acetonide 55 mcg/actuation aerosol intranasal cetirizine 10 mg tablet 10 mg PO DAILY PRN (Reason: allergy symptoms) 90 Days Qty: 90 0RF hydrocortisone [Proctosol HC] 2.5 % cream with perineal applicator 1 appl CO TID PRN (Reason: hemorrhoids) Qty: 30 5RF levothyroxine [Synthroid] 125 mcg tablet 125 mcg PO DAILY Qty: 90 3RF bisacodyl [Dulcolax (bisacodyl)] 5 mg tablet,delayed release (DR/EC) 10 mg PO ONCE 1 Days Qty: 2 0RF Rx Instructions: take 2 tabs at noon the day before your colonoscopy polyethylene glycol 3350 [Miralax] 17 gram/dose powder 238 g PO ONCE Qty: 238 0RF Rx Instructions: As directed by gastroenterology department at [facility]
[2022-11-17 22:45] VITALS: BP 122/67; PULSE 66; RESP 16; TEMP 36.8; O2SAT 95
[2022-11-17 22:48] LABS: MANUAL DIFF FLAG NO
[2022-11-17] MEDS: 0.9 % Sodium Chloride 1,000 ML 999 ML IVCONT (22:48)
[2022-11-17 22:50] VITALS: RESP 16
[2022-11-17 22:50] LABS: Basophils Percent Auto 0.3 % (0-2); Eosinophils Absolute Auto 0.1 X10*3/uL (0.0-0.4); Eosinophils Percent Auto 0.8 % (0-4); Hematocrit 42.9 % (37.0-47.0); Hemoglobin 14.7 g/dl (12.0-16.0); Imm Gran Abs Auto 0.05 X10*3/uL (0.00-0.03); Imm Gran Pct Auto 0.4 % (0.0-0.4); Lymphocytes Absolute Auto 1.2 X10*3/uL (1.2-4.9); Lymphocytes Percent Auto 8.7 % (20-40); Mean Corpuscular HGB Conc 34.3 g/dl (31.0-35.0); Mean Corpuscular Hemoglobin 31.3 pg (27.0-33.0); Mean Corpuscular Volume 91.3 fL (80.0-98.0); Mean Platelet Volume 9.9 fL (9.4-12.3); Monocytes Absolute Auto 0.8 X10*3/uL (0.1-1.2); Monocytes Percent Auto 5.5 % (2-11); Neutrophils Absolute Auto 11.9 x10*3/uL (2.0-8.3); Neutrophils Percent Auto 84.3 % (45-73); Platelet Count 269 X10*3/uL (160-400); Red Cell Distribution Width 11.7 % (11.0-16.0); White Blood Count 14.1 X10*3/uL (4.8-10.8)
[2022-11-17] MEDS: Morphine Sulfate 4 MG/ML CARTRIDGE IVPUSH (22:50)
[2022-11-17] MEDS: ondansetron HCL 4 MG/2 ML VIAL IVPUSH (22:50)
[2022-11-17 23:02] LABS: Lactic Acid 1.3 mmol/L (0.5-2.0)
[2022-11-17 23:05] LABS: COVID-19 Test Negative (Negative); IDNOW Serial# 08D9AD1C; Lipase 38 U/L (8-78)
[2022-11-17 23:08] LABS: Alanine Aminotransferase 27 U/L (0-31); Albumin Level 4.5 g/dL (3.5-5.0); Alkaline Phosphatase 56 U/L (39-117); Anion Gap 14 (12-20); Aspartate Amino Transferase 30 U/L (5-31); Bilirubin Direct 0.2 mg/dL (0.0-0.5); Bilirubin Total 0.5 mg/dL (0.0-1.0); Blood Urea Nitrogen 13 mg/dL (9-16); Calcium 9.8 mg/dL (8.4-10.2); Carbon Dioxide 27 mmol/L (22-29); Chloride 105 mmol/L (96-108); Creatinine Clr Calc Pharmacy 72.3; Estimated Glomerular Filt Rate > 60; Glucose Random 111 mg/dL (60-115); Potassium 3.5 mmol/L (3.3-5.1); Sodium 142 mmol/L (135-145)
[2022-11-17 23:25] LABS: Troponin-I High Sensitivity < 2.7 ng/L (<3.5-17.0)
[2022-11-17 23:56] LABS: Appearance Urine Clear; Color Urine Yellow; Glucose Urine UA Negative (Negative); Leukocyte Esterase Urine Moderate (2+) (Negative); Nitrite Urine Negative (Negative); PH 6.5 (5.0-9.0); Specific Gravity - Urine 1.015 (1.005-1.025); UMIC TRIGGER UACC YES; Urine Blood Negative (Negative); Urine Ketones Negative (Negative); Urine Protein Trace mg/dL (Neg-Trace)
[2022-11-18 00:15] LABS: Bacteria Urine Trace (None Seen); Hyaline Casts Urine 0-2 /LPF (0-2); WBC Urine 0-5 /HPF (0-5)
[2022-11-18] MEDS: iohexoL 350 MG/ML 100 ML INFUS..BTL 85 ML IV (00:47)
[2022-11-18 04:00] VITALS: BP 104/64; PULSE 67; RESP 16; O2SAT 94
[2022-11-18] MEDS: Mag&Al/Sim/Diphenhyd/Lidocaine 10 ML ORAL.SUSP PO (04:07)
== END 2022-11-18 05:01 | disposition home or self-care (01) ==
PROVIDERS: Emergency Provider Emergency Medicine; PCP Internal Medicine
DX: K27.9 Peptic ulcer, site unspecified, unspecified as acute or chronic, without hemorrhage or perforation (principal); R10.13 Epigastric pain; Z20.822 Contact with and (suspected) exposure to COVID-19; Z20.828 Contact with and (suspected) exposure to other viral communicable diseases; Z87.891 Personal history of nicotine dependence; Z79.899 Other long term (current) drug therapy
CPT/HCPCS: 36415; 74177; 80048; 80076; 81001; 83605; 83690; 84484; 85025; 87040; 87635; 93005; 96361; 96374; 96375; 99284; 99285; J2270; J2405; Q9967

== ENCOUNTER → 2022-11-17 22:02 | Outpatient (BNV) | payer OTHER, SELFPAY | PROVIDERS: Emergency Provider Emergency Medicine; PCP Internal Medicine; Visit Provider Internal Medicine Cardiovascular Disease | DX: R10.9 Unspecified abdominal pain (principal) | CPT/HCPCS: 93010 ==

== ENCOUNTER 2023-03-06 09:56 | Outpatient (AMB) | payer OTHER, SELFPAY ==
--- NOTE | 2023-03-06 12:23 | AM.OFFWIN_ITS ---
Intake Vital Signs 03/06/23 12:24 Height 5 ft 4 in Weight 162 lb BMI 27.8 BP 110/70 Blood Pressure Location Lt brachial Position Sitting Pulse 84 Pulse Source Pulse Oximeter Temp 97.2 F Temp Source Temporal Artery Scan Pulse Oximetry (%) 97 Oxygen Delivery Method Room Air Intake Visit Reasons: EST/cough and sinus infection Intake Note: pt is here today for possible cough ans sinus infection started last week Patient Tobacco Use Status: Former Tobacco user Allergies No Known Allergies [No Known Allergies*] Allergy (Verified 03/06/23 12:25) Do you need a note to return to daycare/school/sports/work: No HPI HPI Comments History of Present Illness Details This is a 62-year-old female presenting for evaluation of left-sided facial pain she has had for the past 6 days. Patient reports having a sore throat and pressure in her left ear as well as chills. She states her facial pain is worse when she eats. She denies having any fevers, right ear pain, difficulty swallowing, cough or shortness of breath. Patient has been using ibuprofen and Tylenol with minimal relief of her discomfort. [facility] Medical History Myalgia Cervical cancer screening Women's annual routine gynecological examination SOB (shortness of breath) RUQ abdominal pain Obesity (BMI 30.0-34.9) Endocervical polyp Well woman exam Hematuria Facial lesion Abdominal bloating Exposure to COVID-19 virus Peripheral vascular disease History of renal calculi Mixed stress and urge urinary incontinence Anemia GERD (gastroesophageal reflux disease) Insomnia Vitamin D deficiency Hypothyroid Hypercholesterolemia Surgical History History of tubal ligation Family History Father No problems noted. Mother Liver cancer Diabetes Hypertension Cirrhosis Paternal Aunt Breast cancer Father No problems noted. Mother Liver cancer Diabetes Hypertension Cirrhosis Paternal Aunt Breast cancer Social History (Updated 09/17/22 @ 09:18 by Tanya Child MD) Housing: House Alcohol intake: current Alcohol intake frequency: holidays/special occasions only Patient Tobacco Use Status: Former Tobacco user Tobacco use type: Cigarette Years Smoked: 27 years old e-Cigarette/Vaping Use: Never Used Second Hand Smoke Exposure: No service: No Current occupational status: unemployed Cognitive needs: No Hearing needs: No Vision needs: Yes Female Reproductive History Menstrual Age of Menarche: 11 Review of Systems Const All systems reviewed & are unremarkable except as noted in HPI and below Reports chills, Denies fever(s) and Denies night sweats Eyes Reports as per HPI ENT Reports no additional complaints, Reports facial pain (left), Denies mouth pain, Reports sinus pain, Reports sinus pressure and Denies sore throat Card Reports as per HPI Resp Reports as per HPI Endo Reports no additional complaints Physical Exam Vital Signs: Last Vital Signs Temp 97.2 F 03/06/23 12:24 Pulse 84 03/06/23 12:24 BP 110/70 03/06/23 12:24 Pulse Ox 97 03/06/23 12:24 Oxygen Delivery Method Room Air 03/06/23 12:24 BMI result Body Mass Index 27.8 Const General: cooperative, healthy appearing, comfortable and no acute distress Nutritional Appearance: average body habitus and well nourished Orientation/consciousness: patient oriented x3 Limitations: no limitations HEENT Head: Yes normal to inspection Ears: hearing grossly normal bilaterally, external ears normal, TM normal on the right, left TM abnormal (TM bulging with mild erythema and minimal fluid level) and EAC's normal General nose exam: Normal external nose present Face and sinus: No erythema, No edema, No fluctuance and Yes sinus tenderness (left frontal and maxillary sinus tenderness) Mouth: Normal oral and palatal mucosa present Teeth and gingiva: dentition normal Throat: Yes postnasal drainage Eyes Eyelids: Yes eyelids normal Conjunctivae: conjunctivae normal Sclerae: sclerae normal Corneas: corneas normal Pupils: Equal, round and reactive pupils present EOM: EOMs intact bilaterally Resp Effort & Inspection: normal respiratory effort Auscultation: clear to auscultation bilaterally Cardio Rate: regular rate Rhythm: regular rhythm Skin General skin exam: no rashes or lesions noted Neuro General: patient oriented x3 Cranial nerves: Yes Equal, round and reactive pupils present Psych Appearance: grossly normal Mental Status: mental status grossly normal Insight: Good insight present (Psych) Judgement: Good judgement present (Psych) Assessment & Plan Assessment & Plan (1) Acute maxillary sinusitis: Code(s): J01.00 - Acute maxillary sinusitis, unspecified Plan: Doxycycline 100 mg BID x 7 days and Patient will continue using it Tylenol and ibuprofen as needed. Medications: New doxycycline hyclate 100 mg PO BID 14 tabs 0RF Coding Level of Care Code Est Pt Level 3 (65995) Diagnoses Acute maxillary sinusitis J01.00 Time Spent (min) 20
[2023-03-06 12:24] VITALS: BP 110/70; PULSE 84; TEMP 36.2; O2SAT 97; BMI 27.8
== END 2023-03-06 13:31 | disposition home or self-care (01) ==
PROVIDERS: PCP Internal Medicine; Visit Provider Physician Assistant
DX: J01.00 Acute maxillary sinusitis, unspecified (principal)
CPT/HCPCS: 99213

== ENCOUNTER 2023-03-13 06:40 | Day surgery (SDC) | payer OTHER, SELFPAY ==
[2023-03-11 10:59] VITALS: BMI 27.5
--- NOTE | 2023-03-12 10:43 | HO.ANESPROP2 ---
Documented by User: Tiffany Moyer NP 03/12/23 10:44 HPI - Anesthesia Eval Consult details Narrative: 62yo F for PMFSH Active Problems Active Problems: All Active Problems (Updated 03/11/23 @ 10:57 by Juliana Lisa RN) Acute maxillary sinusitis (Acute) Myxoid cyst (Acute) Colon cancer screening (Acute) Hemorrhoid (Acute) COVID-19 virus infection (Acute) Annual physical exam (Acute) Generalized anxiety disorder (Acute) Chronic gastritis (Acute) IBS (irritable bowel syndrome) (Acute) Hemorrhoid (Acute) Allergic rhinitis (Acute) Hypothyroid (Acute) Insomnia (Acute) GERD (gastroesophageal reflux disease) (Acute) Hypercholesterolemia (Acute) Past Medical History Medical History Myalgia Cervical cancer screening SOB (shortness of breath) RUQ abdominal pain Obesity (BMI 30.0-34.9) Endocervical polyp Hematuria Facial lesion Abdominal bloating Exposure to COVID-19 virus Peripheral vascular disease History of renal calculi Mixed stress and urge urinary incontinence Anemia GERD (gastroesophageal reflux disease) Insomnia Vitamin D deficiency Hypothyroid Hypercholesterolemia Family History Family History Father No problems noted. Mother Liver cancer Diabetes Hypertension Cirrhosis Paternal Aunt Breast cancer Father No problems noted. Mother Liver cancer Diabetes Hypertension Cirrhosis Paternal Aunt Breast cancer Surgical History Surgical History History of tubal ligation Social History Social History Housing: House Alcohol intake: current Alcohol intake frequency: does not drink Patient Tobacco Use Status: Former Tobacco user Tobacco use type: Cigarette Years Smoked: 27 years old e-Cigarette/Vaping Use: Never Used Second Hand Smoke Exposure: No Are you DNR?: No Advance Directives: No Advance Directives Information Provided: Yes Recently lost weight without trying: No Nutrition Risks: No Nutritional Risk Patient : No service: No Current occupational status: unemployed Cognitive needs: No Hearing needs: No Vision needs: Yes Meds Allergies Allergy/AdvReac Type Severity Reaction Status Date / Time No Known Allergies Allergy Verified 03/06/23 12:25 [No Known Allergies*] Exam Height,Weight and Vital Signs: Height 5 ft 4 in Weight 72.575 kg Pertinent Lab Results Pertinent Lab Results: Laboratory Tests 11/17/22 22:41 WBC 14.1 H Hgb 14.7 Hct 42.9 Plt Count 269 Sodium 142 Potassium 3.5 Chloride 105 Carbon Dioxide 27 BUN 13 Creatinine 0.78 Narrative Narrative: EKG 11/2022 Vent. Rate : 061 BPM Atrial Rate : 061 BPM P-R Int : 154 ms QRS Dur : 084 ms QT Int : 448 ms P-R-T Axes : 064 004 026 degrees QTc Int : 450 ms Normal sinus rhythm Normal ECG When compared with ECG of 24-MAY-2017 01:07, No significant change was found Assessment and Plan Assessment Anesthesia Assessment: Chart Reviewed Documented by User: Jake Johnson MD 03/13/23 07:34 [facility] Past Medical History Medical History Myalgia Cervical cancer screening SOB (shortness of breath) RUQ abdominal pain Obesity (BMI 30.0-34.9) Endocervical polyp Hematuria Facial lesion Abdominal bloating Exposure to COVID-19 virus Peripheral vascular disease History of renal calculi Mixed stress and urge urinary incontinence Anemia GERD (gastroesophageal reflux disease) Insomnia Vitamin D deficiency Hypothyroid Hypercholesterolemia Family History Family History Father No problems noted. Mother Liver cancer Diabetes Hypertension Cirrhosis Paternal Aunt Breast cancer Father No problems noted. Mother Liver cancer Diabetes Hypertension Cirrhosis Paternal Aunt Breast cancer Family history of problems with anesthesia: No Surgical History Surgical History History of tubal ligation History of Problems with Anesthesia: No Social History Social History Housing: House Alcohol intake: current Alcohol intake frequency: does not drink Patient Tobacco Use Status: Former Tobacco user Tobacco use type: Cigarette Years Smoked: 27 years old e-Cigarette/Vaping Use: Never Used Second Hand Smoke Exposure: No Are you DNR?: No Advance Directives: No Advance Directives Information Provided: Yes Recently lost weight without trying: No Nutrition Risks: No Nutritional Risk Patient : No service: No Current occupational status: unemployed Cognitive needs: No Hearing needs: No Vision needs: Yes Meds Allergies Allergy/AdvReac Type Severity Reaction Status Date / Time No Known Allergies Allergy Verified 03/06/23 12:25 [No Known Allergies*] Exam Airway Mallampati Class: II TM Dist: >3cm Neck ROM: Full Loose/Missing/Broken Teeth: No Heart: rrr+[id number] Lungs: cta b/l Assessment and Plan Assessment Anesthesia Assessment: Anesthesia Plan Discussed Final Anesthetic Review Family History of Problems with Anesthesia: No History of Problems with Anesthesia: No NPO: Yes ASA Class: II Final Preanesthetic Review: No Changes in Pt Med Stat, Meds/Allgs Chart Reviewed, Consent Obtained/Reviewed and Anes Risks/Benef Reviewed Patient Risk: Intermediate Procedure Risk: Intermediate Assessment/Block/Sedation in SS: Assess/Block/Sedation-SS Anesthetic Plan Anesthetic Plan: MAC: and Agree w/ Assess. and Plan Disposition: Standard PACU
--- NOTE | 2023-03-13 06:43 | P.HPSUR_ITS ---
Pre-Procedural Eval Section A Date of Service: 03/13/23 Section B Chief Complaint: screening Relevant Family History (Specify if Yes): No Relevant Social History: None Present Medications: see Short Stay Collaborative assessment Medical History: Significant History (Myalgia Cervical cancer screening SOB (shortness of breath) RUQ abdominal pain Obesity (BMI 30.0-34.9) Endocervical polyp Hematuria Facial lesion Abdominal bloating Exposure to COVID-19 virus Peripheral vascular disease History of renal calculi Mixed stress and urge urinary incontinence Anemia GERD ) History of Previous Operations: Relevant previous surgery/procedure and date(s) (tubal ligation) Allergies: Allergies Allergy/AdvReac Type Severity Reaction Status Date / Time No Known Allergies Allergy Verified 03/06/23 12:25 [No Known Allergies*] Review of Systems Sugical H&P ROS: Negative: Constitution, Cardiovascular, Respiratory, Neurological, Psychiatric, Hem-Onc, Allergic/Immunologic, Gastrointestinal, Genitourinary, Musculoskeletal, Integumentary, Endocrine and Eyes/Ears/ Nose/Throat Exam Surgical H&P Exam: Normal: HEENT, Normal: Heart, Normal: Lungs, Normal: Extremities, Normal: Abdomen, Normal: Skin and Normal: Neurological Plan I have reviewed the history and physical and performed a pertinent physical examination on my patient. No changes have occurred unless specified. Time Spent With Patient Time: Total time managing care of this patient today ____ minutes.
[2023-03-13 06:56] VITALS: BP 118/79; PULSE 93; RESP 18; TEMP 36.1; O2SAT 97
[2023-03-13] MEDS: Lactated Ringers 1,000 ML 100 ML IVCONT (07:12)
--- NOTE | 2023-03-13 07:56 | W.PM.OPN ---
Operative Note Operative Note Date of Service: 03/13/23 Narrative: Operative Information Procedure Description: Colonoscopy Indication: screening Anesthesia: MAC COLONOSCOPY Instrument: Olympus variable stiffness pediatric scope 190L Colonoscopy Monitoring: Vital signs and clinical assessment, continuous EKG monitoring, Pulse oximetry, Carbon Dioxide monitoring and blood pressure monitoring were done throughout the procedure. Colon withdrawal time was 5 minutes. Procedure: The patient was placed in the left lateral decubitis position and pre-procedure medications were administered. After a digital rectal examination of the ano-rectum, the video colonoscope was inserted into the rectum and advanced through the colon to the cecum/TI. The colonoscope was slowly withdrawn in a retrograde panoramic fashion and the colon mucosa was carefully examined including a retroflexed view of the rectum. Findings and interventions are described below. Procedure Difficulty: easy Findings: Descending Colon: full of solid stool Sigmoid Colon: normal Rectum: Retroflexion with small internal hemorrhoids, grade I Anorectum - normal Colon preparation: [place] Bowel Preparation Scale Right colon; n/a Transverse colon: n/a Left colon; 0 (0 = Unprepared colon segment with mucosa not seen due to solid stool that cannot be cleared. 1 = Portion of mucosa of the colon segment seen, but other areas of the colon segment not well seen due to staining, residual stool and/or opaque liquid. 2 = Minor amount of residual staining, small fragments of stool and/or opaque liquid, but mucosa of colon segment seen well. 3 = Entire mucosa of colon segment seen well with no residual staining, small fragments of stool or opaque liquid) Impression and Post Procedure Diagnosis: poor prep internal hemorrhoids Plan: High fiber diet leaflet Avoid straining at stool, epsom salts and sitz bath, anusol supps or cream Repeat Colonoscopy in few months, educate on prep Above findings were reviewed with the patient and relevant handouts were provided if indicated.
[2023-03-13 08:05] VITALS: BP 104/66; PULSE 79; RESP 16; TEMP 36.4; O2SAT 97
[2023-03-13 08:20] VITALS: BP 145/84; PULSE 83; RESP 16; TEMP 36.4; O2SAT 96
== END 2023-03-13 08:55 | disposition home or self-care (01) ==
PROVIDERS: PCP Internal Medicine; Visit Provider Internal Medicine Gastroenterology
PROC: 0DJD8ZZ Inspection of Lower Intestinal Tract, Via Natural or Artificial Opening Endoscopic (ICD-10-PCS; CPT 45378; principal; 2023-03-13 08:10)
DX: Z12.11 Encounter for screening for malignant neoplasm of colon (principal); K64.0 First degree hemorrhoids; D64.9 Anemia, unspecified; E78.00 Pure hypercholesterolemia, unspecified; K21.9 Gastro-esophageal reflux disease without esophagitis; K29.50 Unspecified chronic gastritis without bleeding; Z98.51 Tubal ligation status; Z87.891 Personal history of nicotine dependence
CPT/HCPCS: 45378; J2704

== ENCOUNTER → 2023-03-13 06:40 | Outpatient (BNV) | payer OTHER, SELFPAY | PROVIDERS: PCP Internal Medicine; Visit Provider Internal Medicine Gastroenterology | DX: Z12.11 Encounter for screening for malignant neoplasm of colon (principal); Z91.199 Patient's noncompliance with other medical treatment and regimen due to unspecified reason; K64.0 First degree hemorrhoids | CPT/HCPCS: 45378 ==

== ENCOUNTER 2023-03-18 07:40 | Outpatient (REF) | payer OTHER, SELFPAY ==
[2023-03-18 10:37] LABS: MANUAL DIFF FLAG NO
[2023-03-18 10:41] LABS: Basophils Percent Auto 0.8 % (0-2); Eosinophils Absolute Auto 0.1 X10*3/uL (0.0-0.4); Eosinophils Percent Auto 2.1 % (0-4); Hematocrit 38.9 % (37.0-47.0); Hemoglobin 13.2 g/dl (12.0-16.0); Imm Gran Abs Auto 0.01 X10*3/uL (0.00-0.03); Imm Gran Pct Auto 0.2 % (0.0-0.4); Lymphocytes Absolute Auto 2.1 X10*3/uL (1.2-4.9); Lymphocytes Percent Auto 43.5 % (20-40); Mean Corpuscular HGB Conc 33.9 g/dl (31.0-35.0); Mean Corpuscular Hemoglobin 31.6 pg (27.0-33.0); Mean Corpuscular Volume 93.1 fL (80.0-98.0); Mean Platelet Volume 10.4 fL (9.4-12.3); Monocytes Absolute Auto 0.3 X10*3/uL (0.1-1.2); Monocytes Percent Auto 6.9 % (2-11); Neutrophils Absolute Auto 2.2 x10*3/uL (2.0-8.3); Neutrophils Percent Auto 46.5 % (45-73); Platelet Count 319 X10*3/uL (160-400); Red Blood Count 4.18 X10*6/uL (4.20-5.50); Red Cell Distribution Width 11.8 % (11.0-16.0); White Blood Count 4.8 X10*3/uL (4.8-10.8)
[2023-03-18 11:00] LABS: Alanine Aminotransferase 20 U/L (0-31); Albumin Level 4.2 g/dL (3.5-5.0); Alkaline Phosphatase 53 U/L (39-117); Anion Gap 14 (12-20); Aspartate Amino Transferase 21 U/L (5-31); Bilirubin Total 0.5 mg/dL (0.0-1.0); Blood Urea Nitrogen 11 mg/dL (9-16); Calcium 9.3 mg/dL (8.4-10.2); Carbon Dioxide 29 mmol/L (22-29); Chloride 103 mmol/L (96-108); Cholesterol 168 mg/dL (<200); Estimated Glomerular Filt Rate > 60; Glucose Random 102 mg/dL (60-115); HDL Cholesterol 43 mg/dL (>40); LDL Cholesterol Calculated 87 mg/dL (<100); Potassium 3.7 mmol/L (3.3-5.1); Sodium 142 mmol/L (135-145); Total Protein 7.6 g/dL (6.5-8.0); Triglycerides 192 mg/dL (<150)
[2023-03-18 11:19] LABS: Free T4 (Free Thyroxine) 1.28 ng/dL (0.71-1.85); Thyroid Stimulating Hormone 1.16 uIU/mL (0.32-4.0); Vitamin D 25-OH Total 48.1 ng/mL (>30)
[2023-03-18 11:36] LABS: Folate 7.8 ng/mL (> or = 4.0); Vitamin B12 639 pg/mL (200-900)
== END 2023-03-18 07:41 | disposition home or self-care (01) ==
LOC: HO.10HDL 07:40
PROVIDERS: Visit Provider Internal Medicine
DX: E78.00 Pure hypercholesterolemia, unspecified (principal)
CPT/HCPCS: 36415; 80053; 80061; 82306; 82607; 82746; 84439; 84443; 85025

== ENCOUNTER 2023-03-19 08:23 | Outpatient (AMB) | payer OTHER, SELFPAY ==
[2023-03-19 08:38] VITALS: BP 142/92; PULSE 75; O2SAT 96; BMI 27.0
--- NOTE | 2023-03-19 08:38 | A.OFFPC_ITS ---
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 Accompanied by: Self / Same As Patient Allergies No Known Allergies [No Known Allergies*] Allergy (Verified 03/19/23 08:39) Tobacco use date assessed: 06/27/22 Dental Screening Dental Screen Date: 03/19/23 Did you have a dental visit in the last 12 months?: Yes Did you have a dental problem in the last 6 months where you did not have access to dental care?: No Was dental information given to patient?: Patient has dentist HPI Cholesterol, hypothyroid HPI Details 62-year-old female with a history of CATHERINE D hypercholesterolemia hypothyroidism in generalized anxiety disorder last seen September 2022. Review of the notes was seen by Gastroenterology and colonoscopy done but due to the poor prep will need to be repeated. Patient was in the Urgent Center and March 06 for a left-sided facial pain diagnosis of maxillary sinusitis with doxycycline treatment. ER visit also in November 2022 for epigastric pain and vomiting diagnosis of peptic ulcer disease omeprazole prescribed. after thankgiving - exposed to covid and flu L facila pressure , pulsating , like sharp needled [facility] Medical History (Updated 03/19/23 @ 08:42 by Tanya Child MD) Colon cancer screening Myalgia Cervical cancer screening SOB (shortness of breath) RUQ abdominal pain Obesity (BMI 30.0-34.9) Endocervical polyp Hematuria Facial lesion Abdominal bloating Exposure to COVID-19 virus Peripheral vascular disease History of renal calculi Mixed stress and urge urinary incontinence Anemia GERD (gastroesophageal reflux disease) Insomnia Vitamin D deficiency Hypothyroid Hypercholesterolemia Surgical History History of tubal ligation Family History Father No problems noted. Mother Liver cancer Diabetes Hypertension Cirrhosis Paternal Aunt Breast cancer Father No problems noted. Mother Liver cancer Diabetes Hypertension Cirrhosis Paternal Aunt Breast cancer Social History Housing: House Alcohol intake: current Alcohol intake frequency: does not drink Patient Tobacco Use Status: Former Tobacco user Tobacco use type: Cigarette Years Smoked: 27 years old e-Cigarette/Vaping Use: Never Used Second Hand Smoke Exposure: No service: No Current occupational status: unemployed Cognitive needs: No Hearing needs: No Vision needs: Yes Female Reproductive History Menstrual Age of Menarche: 11 Questionnaire Thrive Questionnaire Date Thrive assessed: 06/27/22 JENNIE-7 AMB Questionnaire JENNIE-7 Date JENNIE - 7 assessed: 06/27/22 Source: Developed by Drs. Abdiel Solomon, Beryl Martin, Riki Mazariegos and colleagues, with an educational lana from [employer]. Physical exam (Primary Care) Vital Signs: Oxygen Delivery Method Room Air 03/19/23 08:38 Tobacco/Smoking Status: Tobacco use Status Tobacco use date assessed 06/27/22 09/17/22 09:13 Patient Tobacco Use Status Former Tobacco user 03/13/23 08:03 Tobacco use type Cigarette 09/17/22 09:18 e-Cigarette/Vaping Use Never Used 09/17/22 09:18 Thrive Assessment: Date of Thrive Assessment Date Thrive assessed 06/27/22 09/17/22 09:13 Const General: alert; No acute distress Eyes Conjunctivae: conjunctivae normal Resp Auscultation: clear to auscultation bilaterally Cardio Rate: regular rate Rhythm: regular rhythm GI Inspection: Yes normal to inspection Extrem General: Yes normal to inspection and No edema Assessment and Plan Assessment & Plan (1) Hypercholesterolemia: Code(s): E78.00 - Pure hypercholesterolemia, unspecified Plan: Avoid fried foods, chicken skin, eggs, butter margarine, pastries and meat. Be it pork or beef they have a lot of cholesterol patient is presently on simvastatin 5 mg once a day. LDL goal of less than 130 and triglyceride of less than 150 (2) GERD (gastroesophageal reflux disease): Code(s): K21.9 - Gastro-esophageal reflux disease without esophagitis Qualifiers: Esophagitis presence: without esophagitis Qualified Code(s): K21.9 - Gastro-esophageal reflux disease without esophagitis Plan: Avoid the foods that causes that usually spicy foods, tomato products, juices, coffee, soda and foods that your sensitive to. After eating do not lie down, allow 3-4 hours before in lie down. And keep the head of bed above 30 degrees to avoid the acid from going up. Presently on omeprazole (3) Hypothyroid: Code(s): E03.9 - Hypothyroidism, unspecified Qualifiers: Hypothyroidism type: acquired Qualified Code(s): E03.9 - Hypothyroidism, unspecified Plan: Continue with thyroid medication March 2023 last blood (4) Generalized anxiety disorder: Code(s): F41.1 - Generalized anxiety disorder (5) Impaired glucose tolerance: Code(s): R73.02 - Impaired glucose tolerance (oral) Plan: Decrease the amount of carbohydrate intake, pasta, bread, rice and potatoes are all sugar and that is aside from all the sweet stuff, remember that fruits are good but they are Sweet also. Coding Level of Care Code Est Pt Level 4 (08279) Diagnoses Hypercholesterolemia E78.00 Gastroesophageal reflux disease without esophagitis K21.9 Esophagitis presence: without esophagitis Acquired hypothyroidism E03.9 Hypothyroidism type: acquired Generalized anxiety disorder F41.1 Impaired glucose tolerance R73.02
== END 2023-03-19 09:00 | disposition home or self-care (01) ==
PROVIDERS: PCP Internal Medicine; Visit Provider Internal Medicine
DX: E78.00 Pure hypercholesterolemia, unspecified (principal); K21.9 Gastro-esophageal reflux disease without esophagitis; E03.9 Hypothyroidism, unspecified; F41.1 Generalized anxiety disorder; R73.02 Impaired glucose tolerance (oral)
CPT/HCPCS: 99214

== ENCOUNTER 2023-03-28 09:51 | Outpatient (AMB) | payer OTHER, SELFPAY ==
--- NOTE | 2023-03-28 09:56 | MHC.OFFVIS ---
Intake Vital Signs 03/28/23 09:57 Height 5 ft 4 in Weight 155 lb BMI 26.6 BP 119/69 Blood Pressure Location Lt brachial Position Sitting Pulse 69 Intake Visit Reasons: S/P Colon Intake Note: Patient follow up fro Colonoscopy results Patient cc: constipation and denies any other GI issues. 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 Denies any issues with anesthesia in the past.? Denies any history of sleep apnea.? No history infectious diseases in the past or present.? Not on any anticoagulation therapy.? No family or personal history of colon cancer or polyps.? Patient denies melena, hematochezia, unintentional weight loss or ribbon like stools.? Discussed at length the pre-procedure,? prep, diet & medications as well as what to expect prior, during and after the procedure.?? Stressed the importance of good bowel prep. ?Recommended the use of Vaseline or Calmoseptine OTC & baby wipes with bowel movements to promote comfort.? ?Patient verbalizes understanding and agrees to plan of care.? She was given the opportunity to ask questions and all questions answered.? We will see her after the procedure.? Plan Medications New bisacodyl (Dulcolax (bisacodyl)) take 2 tabs at noon the day before your colonoscopy 10 mg (2 x 5 mg) PO ONCE 1 day 2 tabs 0RF Z12.11 - Encounter for screening for malignant neoplasm of colon polyethylene glycol 3350 (Miralax) As directed by gastroenterology department at [facility] 238 grams PO ONCE 238 grams 0RF Z12.11 - Encounter for screening for malignant neoplasm of colon COLONOSCOPY Findings: Descending Colon: full of solid stool Sigmoid Colon: normal Rectum: Retroflexion with small internal hemorrhoids, grade I Anorectum - normal Colon preparation: [place] Bowel Preparation Scale Right colon; n/a Transverse colon: n/a Left colon; 0 (0 = Unprepared colon segment with mucosa not seen due to solid stool that cannot be cleared. 1 = Portion of mucosa of the colon segment seen, but other areas of the colon segment not well seen due to staining, residual stool and/or opaque liquid. 2 = Minor amount of residual staining, small fragments of stool and/or opaque liquid, but mucosa of colon segment seen well. 3 = Entire mucosa of colon segment seen well with no residual staining, small fragments of stool or opaque liquid) Impression and Post Procedure Diagnosis: poor prep internal hemorrhoids Plan: High fiber diet leaflet Avoid straining at stool, epsom salts and sitz bath, anusol supps or cream Repeat Colonoscopy in few months, educate on prep TODAY'S VISIT Patient is here today for follow-up and to discuss colonoscopy results. Patient has very poor prep unable to pass through descending colon. Patient will need to repeat colonoscopy again. Unsure if patient prep correctly and follow clear liquid diet day before procedure. Clearly patient is constipated, patient admits to having infrequent bowel movement every 2-3 days. Postprandial abdominal bloating. Patient is taking omeprazole for acid reflux and her symptoms are currently suppressed. Patient denies any dyspepsia, dysphagia or odynophagia. Patient denies any melena, hematochezia, unintentional weight loss or ribbon like stools. [facility] Medical History (Updated 03/28/23 @ 10:20 by Jessie Virgen, [facility] [place]) Colon cancer screening Myalgia Cervical cancer screening SOB (shortness of breath) RUQ abdominal pain Obesity (BMI 30.0-34.9) Endocervical polyp Hematuria Facial lesion Abdominal bloating Exposure to COVID-19 virus Peripheral vascular disease History of renal calculi Mixed stress and urge urinary incontinence Anemia GERD (gastroesophageal reflux disease) Insomnia Vitamin D deficiency Hypothyroid Hypercholesterolemia Surgical History History of tubal ligation Family History Father No problems noted. Mother Liver cancer Diabetes Hypertension Cirrhosis Paternal Aunt Breast cancer Father No problems noted. Mother Liver cancer Diabetes Hypertension Cirrhosis Paternal Aunt Breast cancer Social History Housing: House Alcohol intake: current Alcohol intake frequency: does not drink Patient Tobacco Use Status: Former Tobacco user Tobacco use type: Cigarette Years Smoked: 27 years old e-Cigarette/Vaping Use: Never Used Second Hand Smoke Exposure: No service: No Current occupational status: unemployed Cognitive needs: No Hearing needs: No Vision needs: Yes Female Reproductive History Menstrual Age of Menarche: 11 Review of Systems Const Denies weight gain and Denies weight loss ENT Reports no additional complaints, Denies dysphagia and Denies odynophagia Card Reports no additional complaints Resp Reports no additional complaints GI Denies abdominal pain, Denies belching, Denies melena, Denies bloating, Reports constipation, Denies dysphagia, Denies excessive flatus, Denies dyspepsia, Denies heartburn, Denies diarrhea, Denies loose stools, Denies nausea, Denies odynophagia and Denies vomiting Musc Reports no additional complaints Neuro Reports no additional complaints Psych Reports no additional complaints Endo Reports no additional complaints Physical Exam Vital Signs: Last Vital Signs Pulse 69 03/28/23 09:57 BP 119/69 03/28/23 09:57 BMI result Body Mass Index 26.6 Const General: healthy appearing, no acute distress and well developed Nutritional Appearance: well nourished Orientation/consciousness: patient oriented x3 HEENT Head: Yes normal to inspection, Yes normocephalic and Yes atraumatic Face and sinus: Yes normal facial exam Mouth: Normal oral and palatal mucosa present Throat: Yes posterior oropharynx normal, Yes tonsils normal and Yes uvula midline Eyes General: appearance normal, both eyes and all related structures Neck Neck: Yes normal visual inspection, Yes full ROM and Yes trachea midline Thyroid: Thyroid normal Resp Effort & Inspection: normal respiratory effort, able to speak in complete sentences, no tracheal deviation and symmetric chest movement Auscultation: clear to auscultation bilaterally Cardio Rate: regular rate GI Inspection: Yes normal to inspection and No distended Palpation (GI): Soft to palpation, not firm, nontender and No hepatosplenomegaly present Auscultation: normal bowel sounds General: Yes no CVA tenderness Back/Spine/Pelvis Back: no CVA tenderness Skin General skin exam: elasticity normal, turgor normal and dry skin Neuro General: patient oriented x3 Psych Appearance: grossly normal Mental Status: mental status grossly normal Assessment & Plan Assessment & Plan (1) IBS (irritable bowel syndrome): Code(s): K58.9 - Irritable bowel syndrome without diarrhea Qualifiers: Irritable bowel syndrome type: without diarrhea Qualified Code(s): K58.9 - Irritable bowel syndrome without diarrhea (2) Constipation: Code(s): K59.00 - Constipation, unspecified Qualifiers: Constipation type: slow transit constipation Qualified Code(s): K59.01 - Slow transit constipation (3) Hemorrhoid: Code(s): K64.9 - Unspecified hemorrhoids Qualifiers: Hemorrhoid type: unspecified Qualified Code(s): K64.9 - Unspecified hemorrhoids Plan Patient will be started on senna. Patient was encouraged to increase fluid intake and activity to promote better bowel motility. I will see patient in 4 weeks to discuss going for colonoscopy. Patient will call our office if she will have any GI concerning symptoms. Patient is agreeable to this plan and verbalizes understanding of instructions. She was given the opportunity to ask questions and all questions answered. Thank you for allowing me to participate in her care Medications: New sennosides (Natural Senna Laxative) 17.2 mg (2 x 8.6 mg) PO BEDTIME 60 tabs 1RF constipation K59.00 - Constipation, unspecified Coding Level of Care Code Est Pt Level 3 (30874) Diagnoses Irritable bowel syndrome without diarrhea K58.9 Irritable bowel syndrome type: without diarrhea Slow transit constipation K59.01 Constipation type: slow transit constipation Hemorrhoids, unspecified hemorrhoid type K64.9 Hemorrhoid type: unspecified Time Spent (min) 30 Comment 20 minutes spent with patient and additional 10 minutes spent reviewing her records
[2023-03-28 09:57] VITALS: BP 119/69; PULSE 69; BMI 26.6
== END 2023-03-28 10:50 | disposition home or self-care (01) ==
LOC: HO.HGI 09:52
PROVIDERS: PCP Internal Medicine; Visit Provider Nurse Practitioner Family
DX: K58.9 Irritable bowel syndrome, unspecified (principal); K59.01 Slow transit constipation; K64.9 Unspecified hemorrhoids
CPT/HCPCS: 99213

== ENCOUNTER → 2023-03-28 09:51 | Outpatient (BNVA) | payer OTHER, SELFPAY | PROVIDERS: PCP Internal Medicine; Visit Provider Nurse Practitioner Family | DX: K58.9 Irritable bowel syndrome, unspecified (principal); K59.01 Slow transit constipation; K64.9 Unspecified hemorrhoids | CPT/HCPCS: 99212 ==

== ENCOUNTER 2023-04-25 08:16 | Outpatient (AMB) | payer OTHER, SELFPAY ==
--- NOTE | 2023-04-25 08:21 | A.OFFVIS_ITS ---
Intake Vital Signs 04/25/23 08:23 Height 5 ft 4 in Weight 158 lb 11.725 oz BMI 27.2 BP 119/65 Blood Pressure Location Lt brachial Position Sitting Pulse 71 Intake Visit Reasons: 4 week follow up Intake Note: Xena presents in the office as a 4 week follow up. CC: She is not having any concerns at this time. Cdl Program Coordinator Required: No Allergies No Known Allergies [No Known Allergies*] Allergy (Verified 04/25/23 08:23) HPI 4 week follow up HPI Details LAST VISIT IBS (irritable bowel syndrome) Constipation Hemorrhoid Plan Patient will be started on senna. Patient was encouraged to increase fluid intake and activity to promote better bowel motility. I will see patient in 4 weeks to discuss going for colonoscopy. Patient will call our office if she will have any GI concerning symptoms. Patient is agreeable to this plan and verbalizes understanding of instructions. She was given the opportunity to ask questions and all questions answered. ? Thank you for allowing me to participate in her care Medications New sennosides (Natural Senna Laxative) 17.2 mg (2 x 8.6 mg) PO BEDTIME 60 tabs 1RF constipation K59.00 TODAY'S VISIT Patient is here today for follow-up and to discuss going for colonoscopy. Colonoscopy in March was not fully completed as the prep was suboptimal. Patient had cramps with Dulcolax and vomited when she took MiraLax. Patient since has been taking Senokot and has been moving her bowels better. Still reports that her stool is hard. Patient states that she drinks plenty fluids. Patient denies any issues with anesthesia. No history of sleep apnea. Did well after the procedure. Denies any melena, hematochezia, unintentional weight loss or ribbon like stools. Patient denies any other GI concerning symptoms. [facility] Medical History Colon cancer screening Myalgia Cervical cancer screening SOB (shortness of breath) RUQ abdominal pain Obesity (BMI 30.0-34.9) Endocervical polyp Hematuria Facial lesion Abdominal bloating Exposure to COVID-19 virus Peripheral vascular disease History of renal calculi Mixed stress and urge urinary incontinence Anemia GERD (gastroesophageal reflux disease) Insomnia Vitamin D deficiency Hypothyroid Hypercholesterolemia Surgical History Hx of colonoscopy History of tubal ligation Family History Father No problems noted. Mother Liver cancer Diabetes Hypertension Cirrhosis Paternal Aunt Breast cancer Father No problems noted. Mother Liver cancer Diabetes Hypertension Cirrhosis Paternal Aunt Breast cancer Social History Housing: House Alcohol intake: current Alcohol intake frequency: does not drink Patient Tobacco Use Status: Former Tobacco user Tobacco use type: Cigarette Years Smoked: 27 years old e-Cigarette/Vaping Use: Never Used Second Hand Smoke Exposure: No service: No Current occupational status: unemployed Cognitive needs: No Hearing needs: No Vision needs: Yes Female Reproductive History Menstrual Age of Menarche: 11 Review of Systems Const Denies weight gain and Denies weight loss ENT Reports no additional complaints, Denies dysphagia and Denies odynophagia Card Reports no additional complaints Resp Reports no additional complaints GI Denies abdominal pain, Denies belching, Denies melena, Denies bloating, Denies change in bowel habits, Denies dysphagia, Denies excessive flatus, Denies dyspepsia, Denies heartburn, Denies diarrhea, Denies loose stools, Denies nausea, Denies odynophagia and Denies vomiting Reports no additional complaints Musc Reports no additional complaints Neuro Reports no additional complaints Psych Reports no additional complaints Endo Reports no additional complaints Physical Exam Vital Signs: Last Vital Signs Pulse 71 04/25/23 08:23 BP 119/65 04/25/23 08:23 BMI result Body Mass Index 27.2 Const General: healthy appearing, no acute distress and well developed Nutritional Appearance: well nourished Orientation/consciousness: patient oriented x3 Resp Effort & Inspection: normal respiratory effort, able to speak in complete sentences, no tracheal deviation and symmetric chest movement Auscultation: clear to auscultation bilaterally Cardio Rate: regular rate GI Inspection: Yes normal to inspection and No distended Palpation (GI): Soft to palpation, not firm, nontender and No hepatosplenomegaly present Auscultation: normal bowel sounds General: Yes no CVA tenderness Back/Spine/Pelvis Back: no CVA tenderness Skin General skin exam: elasticity normal, turgor normal and dry skin Neuro General: patient oriented x3 Psych Appearance: grossly normal Mental Status: mental status grossly normal Assessment & Plan Assessment & Plan (1) Hemorrhoid: Code(s): K64.9 - Unspecified hemorrhoids Qualifiers: Hemorrhoid type: unspecified Qualified Code(s): K64.9 - Unspecified hemorrhoids (2) IBS (irritable bowel syndrome): Code(s): K58.9 - Irritable bowel syndrome without diarrhea Qualifiers: Irritable bowel syndrome type: without diarrhea Qualified Code(s): K58.9 - Irritable bowel syndrome without diarrhea (3) GERD (gastroesophageal reflux disease): Code(s): K21.9 - Gastro-esophageal reflux disease without esophagitis Qualifiers: Esophagitis presence: without esophagitis Qualified Code(s): K21.9 - Gastro-esophageal reflux disease without esophagitis (4) Constipation: Code(s): K59.00 - Constipation, unspecified Qualifiers: Constipation type: slow transit constipation Qualified Code(s): K59.01 - Slow transit constipation (5) Screen for colon cancer: Code(s): Z12.11 - Encounter for screening for malignant neoplasm of colon Plan Patient will continue take senna, will add Colace. Encourage patient to increase fluid intake and activity to promote better bowel motility. The importance of clear liquid diet day before procedure as well as good bowel prep. Patient will do Clenpiq instead of MiraLax prep. Patient denies any cardiac or respiratory symptoms. Will schedule colonoscopy for August. I will see her after the procedure, sooner on as needed basis. Patient is agreeable to this plan and verbalizes understanding of instructions. She was given the opportunity to ask questions and all questions answered. Thank you for allowing me to participate in her care Medications: New docusate sodium 100 mg PO BEDTIME 90 caps 3RF K59.00 - Constipation, unspecified Coding Level of Care Code Est Pt Level 3 (56999) Diagnoses Hemorrhoids, unspecified hemorrhoid type K64.9 Hemorrhoid type: unspecified Irritable bowel syndrome without diarrhea K58.9 Irritable bowel syndrome type: without diarrhea Gastroesophageal reflux disease without esophagitis K21.9 Esophagitis presence: without esophagitis Slow transit constipation K59.01 Constipation type: slow transit constipation Screen for colon cancer Z12.11 Time Spent (min) 30 Comment 20 minutes spent with patient and additional 10 minutes spent reviewing her records
[2023-04-25 08:23] VITALS: BP 119/65; PULSE 71; BMI 27.2
== END 2023-04-25 08:44 | disposition home or self-care (01) ==
PROVIDERS: PCP Internal Medicine; Visit Provider Nurse Practitioner Family
DX: K64.9 Unspecified hemorrhoids (principal); K58.9 Irritable bowel syndrome, unspecified; K21.9 Gastro-esophageal reflux disease without esophagitis; K59.01 Slow transit constipation; Z12.11 Encounter for screening for malignant neoplasm of colon
CPT/HCPCS: 99213

== ENCOUNTER → 2023-04-25 08:16 | Outpatient (BNVA) | payer OTHER, SELFPAY | PROVIDERS: PCP Internal Medicine; Visit Provider Nurse Practitioner Family | DX: Z12.11 Encounter for screening for malignant neoplasm of colon (principal); K58.9 Irritable bowel syndrome, unspecified; K21.9 Gastro-esophageal reflux disease without esophagitis; K59.01 Slow transit constipation; K64.9 Unspecified hemorrhoids | CPT/HCPCS: 99212 ==

== ENCOUNTER 2023-05-17 09:38 | Outpatient (AMB) | payer OTHER, SELFPAY ==
--- NOTE | 2023-05-17 11:34 | AM.OFFWIN_ITS ---
Intake Vital Signs 05/17/23 11:40 Height 5 ft 4 in Weight 159 lb BMI 27.3 BP 122/78 Blood Pressure Location Rt brachial Position Sitting Pulse 88 Pulse Source Pulse Oximeter Temp 98.0 F Temp Source Oral Pulse Oximetry (%) 98 Oxygen Delivery Method Room Air Intake Visit Reasons: EST/sinus pressure([phone]) Intake Note: Pt is here today c/o sinus pressure x5days Patient Tobacco Use Status: Former Tobacco user Allergies No Known Allergies [No Known Allergies*] Allergy (Verified 05/17/23 15:20) HPI EST/sinus pressure([phone]) HPI Details Patient is a 62-year-old female who comes the walk-in clinic complaining of sinus pressure and intermittent lightheadedness after upper respiratory infection symptoms for 5 days. She denies vertigo, fever or chills, weakness, severe headache otherwise, eye pain, ear pain or discharge from the ears, nausea vomiting or diarrhea, severe sore throat, significant cough, vision changes, difficulty eating, or other significant associated symptoms. Home covid testing not done. REPLACED BY [facility] Medical History Impaired glucose tolerance COVID-19 virus infection Annual physical exam Hemorrhoid Colon cancer screening Myalgia Cervical cancer screening SOB (shortness of breath) RUQ abdominal pain Obesity (BMI 30.0-34.9) Endocervical polyp Hematuria Facial lesion Abdominal bloating Exposure to COVID-19 virus Peripheral vascular disease History of renal calculi Mixed stress and urge urinary incontinence Anemia GERD (gastroesophageal reflux disease) Insomnia Vitamin D deficiency Hypothyroid Hypercholesterolemia Surgical History Hx of colonoscopy History of tubal ligation Family History Father No problems noted. Mother Liver cancer Diabetes Hypertension Cirrhosis Paternal Aunt Breast cancer Father No problems noted. Mother Liver cancer Diabetes Hypertension Cirrhosis Paternal Aunt Breast cancer Social History Housing: House Alcohol intake: current Alcohol intake frequency: does not drink Patient Tobacco Use Status: Former Tobacco user Tobacco use type: Cigarette Years Smoked: 27 years old e-Cigarette/Vaping Use: Never Used Second Hand Smoke Exposure: No Advance Directives: No Advance Directives Information Provided: No service: No Current occupational status: unemployed Cognitive needs: No Hearing needs: No Vision needs: Yes Female Reproductive History Menstrual Age of Menarche: 11 Review of Systems Const All systems reviewed & are unremarkable except as noted in HPI and below Physical Exam Vital Signs: Last Vital Signs Temp 98.0 F 05/17/23 11:40 Pulse 88 05/17/23 11:40 BP 122/78 05/17/23 11:40 Pulse Ox 98 05/17/23 11:40 Oxygen Delivery Method Room Air 05/17/23 11:40 BMI result Body Mass Index 27.3 Const General: cooperative, healthy appearing, comfortable, no acute distress, alert, awake, Physically active and well groomed; No diaphoretic, ill appearing, intoxicated appearing, poor hygiene or tired appearing Nutritional Appearance: average body habitus Orientation/consciousness: patient oriented x3 Limitations: no limitations HEENT Head: Yes normal to inspection, Yes normocephalic and Yes atraumatic Ears: hearing grossly normal bilaterally, external ears normal, TM's normal bilaterally and EAC's normal General nose exam: Normal external nose present, Normal septum present, Abnormal mucous membranes and turbinates present and Nasal discharge present Face and sinus: Yes face symmetric, No edema, No fluctuance, No maxillary instability and Yes sinus tenderness Mouth: Normal oral and palatal mucosa present, lip normal and tongue normal Throat: Yes abnormal tonsil (mildly erythematous bilaterally), No peritonsillar mass, No postnasal drainage, No uvular edema and No cobblestoning Eyes General: appearance normal, both eyes and all related structures Alignment and Position: alignment normal and position normal Periorbital: periorbital findings normal Eyelids: Yes eyelids normal Conjunctivae: conjunctivae normal Pupils: Equal, round and reactive pupils present EOM: EOMs intact bilaterally, no movement deficit and No Nystagmus present Neck Neck: Yes normal visual inspection, Yes no lymphadenopathy, Yes trachea midline, Yes supple and No anterior neck swelling Resp Effort & Inspection: normal respiratory effort Cardio Rate: regular rate Skin Other: Good color, warm and dry Neuro General: patient oriented x3, gait normal, no focal motor deficits and CN's II- XI intact bilaterally Cranial nerves: Yes Equal, round and reactive pupils present and No Nystagmus present Cognition (Neuro): normal cognition Motor exam (neuro): 5 motor strength present throughout Psych Appearance: grossly normal Mental Status: mental status grossly normal Speech and movement: Normal speech and movement present Affect: normal affect Attitude: cooperative Thought process: Normal thought process present Insight: Good insight present (Psych) Judgement: Good judgement present (Psych) Assessment & Plan Assessment & Plan (1) Sinusitis: Code(s): J32.9 - Chronic sinusitis, unspecified Qualifiers: Chronicity: acute Recurrence: non-recurrent Sinusitis location: other Qualified Code(s): J01.80 - Other acute sinusitis Plan: Patient is a 62-year-old female with likely sinusitis, 5 days into viral URI symptoms, and due to complaint severe pressure as well lightheadedness, I wrote her for Augmentin as well as meclizine as needed. She might developing a labyrinthitis however she has no word no nystagmus on exam, and neuro exam unremarkable. She is pending rapid COVID testing as well as testing to rule flu COVID and RSV. We discussed adequate fluid intake and supportive measures. She knows to follow up if symptoms persist or worsen, or go to the emergency department for worrisome symptoms. Orders: Orders BinaxNOW Covid-19 Ag 05/17/23 Z20.822 - Contact with and (suspected) exposure to COVID-19 SARS-CoV2/FLU/RSV 05/17/23 R05.9 - Cough, unspecified Medications: New amoxicillin-pot clavulanate 875-125 mg 1 tab PO BID 14 tabs 0RF meclizine 25 mg PO TID PRN 20 tabs 0RF dizziness Coding Level of Care Code Est Pt Level 4 (80911) Diagnoses Acute non-recurrent sinusitis of other sinus J01.80 Chronicity: acute Recurrence: non-recurrent Sinusitis location: other
[2023-05-17 11:40] VITALS: BP 122/78; PULSE 88; TEMP 36.7; O2SAT 98; BMI 27.3
== END 2023-05-17 12:58 | disposition home or self-care (01) ==
PROVIDERS: PCP Internal Medicine; Visit Provider Physician Assistant Medical
DX: J01.80 Other acute sinusitis (principal)
CPT/HCPCS: 99051; 99214

== ENCOUNTER 2023-05-17 12:28 | Outpatient (REF) | payer OTHER, SELFPAY ==
[2023-05-17 13:20] LABS: Binax Internal Control QC Valid
[2023-05-17 13:22] LABS: Binax Now Covid-19 Ag Negative (Negative)
== END 2023-05-17 12:29 | disposition home or self-care (01) ==
LOC: HO.HMGCLDS 12:28
PROVIDERS: PCP Internal Medicine; Visit Provider Physician Assistant Medical
DX: R05.9 Cough, unspecified (principal); Z20.822 Contact with and (suspected) exposure to COVID-19
CPT/HCPCS: 87811

== ENCOUNTER 2023-05-17 12:35 | Outpatient (REF) | payer OTHER, SELFPAY ==
[2023-05-17 14:24] LABS: Influenza A PCR NEGATIVE (Negative); Influenza B PCR NEGATIVE (Negative); Resp Syncy Virus RNA Qual PCR NEGATIVE (Negative); SARS COV2 PCR INHOUSE NEGATIVE (Negative)
== END 2023-05-17 12:36 | disposition home or self-care (01) ==
LOC: HO.LAB 12:35
PROVIDERS: Visit Provider Physician Assistant Medical
DX: R05.9 Cough, unspecified (principal); Z20.822 Contact with and (suspected) exposure to COVID-19
CPT/HCPCS: 0241U

== ENCOUNTER 2023-05-17 15:11 | Emergency (ER) | payer OTHER, SELFPAY ==
[2023-05-17 15:17] VITALS: BP 135/74; PULSE 78; RESP 20; TEMP 37.1; O2SAT 96; BMI 26.6
--- NOTE | 2023-05-17 15:17 | ED.GENADULT ---
HPI - General Adult General Chief complaint: Dizziness Stated complaint: ?Fluids in head/Sent from Urgent Care Time Seen by Provider: 05/17/23 16:43 Source: patient Mode of arrival: ambulatory Limitations: no limitations History of Present Illness HPI narrative: Patient is a 62 year old assigned female at with a history of GERD and hypothyroidism presenting to the emergency department today with congestion. Patient states that she has had nasal congestion and sinus pressure for 5 days. Patient states that she was seen at an urgent care and prescribed augmentin earlier today but was also recommended to come to the ER. Patient denies any dizziness, lightheadedness, abdominal pain, nausea, vomiting, fever, chills, blurry vision, double vision, loss of vision, chest pain, difficulty breathing, shortness of breath, back pain, night sweats, pain with urination, increased urinary frequency, increased urinary urgency, blood in her urine or stool, syncope or a near syncopal episode, recent trauma or falls, bowel incontinence, bladder incontinence, bowel retention, bladder retention, or any other complaints at this time. Onset (ago): day(s) (6) Location: head and face Radiation: non-radiation Severity: mild Severity scale (1-10): 3 Quality: constant Pain Consistency: constant Relieving factors: none Exacerbating factors: none Associated symptoms: denies other symptoms Treatments prior to arrival: none Related Data Home Medications Medication Instructions Recorded Confirmed albuterol sulfate 90 mcg/actuation 2 puff inhalation Q6H PRN wheezing 04/25/23 aerosol inhaler Previous Rx's Medication Instructions Recorded cetirizine 10 mg tablet 10 mg PO DAILY PRN allergy 01/22/21 symptoms 90 days #90 tabs Synthroid 125 mcg tablet 125 mcg PO DAILY #90 tabs 11/22/22 (levothyroxine) simvastatin 5 mg tablet 5 mg PO BEDTIME #90 tabs 11/22/22 sennosides 8.6 mg tablet (Natural 17.2 mg (2 x 8.6 mg) PO BEDTIME 03/28/23 Senna Laxative) constipation #60 tabs zolpidem 10 mg tablet 10 mg PO BEDTIME PRN insomnia #30 04/15/23 tabs docusate sodium 100 mg capsule 100 mg PO BEDTIME #90 caps 04/25/23 amoxicillin 875 mg-potassium 1 tab PO BID #14 tabs 05/17/23 clavulanate 125 mg tablet meclizine 25 mg tablet 25 mg PO TID PRN dizziness #20 tabs 05/17/23 Allergies Allergy/AdvReac Type Severity Reaction Status Date / Time No Known Allergies Allergy Verified 05/17/23 15:20 [No Known Allergies*] Review of Systems Constitutional: Constitutional: Reports no additional constitutional complaints, Denies chills, Denies fever(s), Reports headache(s) and Denies night sweats Eyes: Eyes: Reports no additional eye complaints, Denies blurry vision, Denies change in vision, Denies diplopia, Denies eye discharge, Denies loss of vision and Denies eye pain ENT: Denies dizziness, Reports headache(s), Reports nasal congestion and Reports sinus pressure Cardiovascular: Cardiovascular: Reports no additional cardiovascular complaints, Denies chest pain, Denies lightheadedness, Denies Loss of Consciousness and Denies dyspnea Respiratory: Respiratory: Reports no additional respiratory complaints and Denies dyspnea Gastrointestinal: Gastrointestinal: Reports no additional gastrointestinal complaints, Denies abdominal pain, Denies melena, Denies hematochezia, Denies change in bowel habits and Denies change in stool character Genitourinary: Genitourinary: Denies hematuria, Denies urinary frequency, Denies dysuria, Denies urinary incontinence, Denies urinary hesitancy and Denies urinary urgency Musculoskeletal: Musculoskeletal: Reports no additional musculoskeletal complaints, Denies numbness and Denies tingling Neurologic: Denies dizziness, Reports headache(s), Denies loss of vision, Denies numbness and Denies tingling Psychiatric: Psychiatric: Reports no additional psychiatric complaints Endocrine: Endocrine: Reports no additional endocrine complaints Hematologic/Lymphatic: Hematologic/Lymphatic: Reports no additional hematologic/lymphatic complaints Allergic/Immunologic: Allergic/Immunologic: Reports no additional allergic/immunologic complaints [facility] Past Medical History Attestation statement: The following information was validated with the patient. Source: old records reviewed and nursing notes reviewed Medical History Impaired glucose tolerance COVID-19 virus infection Annual physical exam Hemorrhoid Colon cancer screening Myalgia Cervical cancer screening SOB (shortness of breath) RUQ abdominal pain Obesity (BMI 30.0-34.9) Endocervical polyp Hematuria Facial lesion Abdominal bloating Exposure to COVID-19 virus Peripheral vascular disease History of renal calculi Mixed stress and urge urinary incontinence Anemia GERD (gastroesophageal reflux disease) Insomnia Vitamin D deficiency Hypothyroid Hypercholesterolemia Surgical History Hx of colonoscopy History of tubal ligation Family History Family History Father No problems noted. Mother Liver cancer Diabetes Hypertension Cirrhosis Paternal Aunt Breast cancer Father No problems noted. Mother Liver cancer Diabetes Hypertension Cirrhosis Paternal Aunt Breast cancer Social History Social History Housing: House Alcohol intake: current Alcohol intake frequency: does not drink Patient Tobacco Use Status: Former Tobacco user Tobacco use type: Cigarette Years Smoked: 27 years old e-Cigarette/Vaping Use: Never Used Second Hand Smoke Exposure: No Advance Directives: No Advance Directives Information Provided: No service: No Current occupational status: unemployed Cognitive needs: No Hearing needs: No Vision needs: Yes Physical Exam ED Vital Signs: Vital Signs - 24 hr 05/17/23 15:17 05/17/23 19:28 05/17/23 19:30 Temperature 98.8 F Pulse Rate 78 73 70 Respiratory Rate 20 Blood Pressure 135/74 138/79 138/72 Pulse Oximetry 96 Oxygen Delivery Method Room Air 05/17/23 19:32 Temperature Pulse Rate 75 Respiratory Rate Blood Pressure 119/74 Pulse Oximetry Oxygen Delivery Method BMI result Body Mass Index 26.6 Const General: cooperative, no acute distress, alert and awake Nutritional Appearance: well nourished Orientation/consciousness: patient oriented x3 Limitations: no limitations [facility] Head: Yes normal to inspection and Yes atraumatic Ears: hearing grossly normal bilaterally and external ears normal General nose exam: Normal external nose present, no nasal discharge noted and no epistaxis Face and sinus: Yes normal facial exam, No abrasion, No laceration and Yes sinus tenderness Mouth: Normal oral and palatal mucosa present, no drooling and no muffled voice Eyes General: appearance normal, both eyes and all related structures Periorbital: periorbital findings normal Eyelids: Yes eyelids normal Conjunctivae: conjunctivae normal Pupils: Equal, round and reactive pupils present EOM: EOMs intact bilaterally Neck Neck: Yes normal visual inspection, Yes full ROM and Yes no lymphadenopathy Chest Chest palpation & inspection: normal inspection of the chest Resp Effort & Inspection: normal respiratory effort and able to speak in complete sentences GI Inspection: Yes normal to inspection Neuro General: patient oriented x3 and moves all extremities Cranial nerves: Yes Equal, round and reactive pupils present Cognition (Neuro): normal cognition Motor exam (neuro): 5/5 motor strength present throughout Sensory Exam: Normal double simultaneous stimulation for sensation Coordination: [id number] test normal Extrem General: Yes normal to inspection, Yes full ROM and Yes capillary refill normal Psych Appearance: grossly normal Mental Status: mental status grossly normal Affect: normal affect Attitude: cooperative Thought process: Normal thought process present Thought content: Normal thought content present Insight: Good insight present (Psych) Course Course Course Narrative: This is an RME: Additional HPI, ROS, PE not included below will be deferred to primary provider. Patient is a 62-year-old female who presents emergency department from urgent care, [facility] walk-in in [place]. She presented there she was concern that she may have a sinus infection has been experiencing congestion and pressure/discomfort to the bilateral maxillary and frontal sinuses, reports brown discharge. She was reporting dizziness, described as a sensation as though she is going to faint, generalized weakness, was advised that she needed to come to the emergency department have a CT scan of her head. These symptoms began 2 days ago. NIH stroke score 0. Reviewed medical record, full note from urgent care is not available at this time however I do see that a prescription for Augmentin and meclizine was sent to the pharmacy. FLu//RSV/COVID negative Medications Administered Discontinued Medications Generic Name Dose Route Start Last Admin Trade Name Azael PRN Reason Stop Dose Admin Amoxicillin/Clavulanate Potassium 875 mg 05/17/23 17:16 05/17/23 17:31 Amoxicillin/Potassium Clav 875 Mg Tablet PO 05/17/23 17:17 875 mg ONCE ONE Administration Sodium Chloride 1,000 mls @ 999 mls/hr 05/17/23 17:30 05/17/23 18:33 Ns IV 05/17/23 18:30 Infused .Q1H1M DUC Infusion Ketorolac Tromethamine 15 mg 05/17/23 17:16 05/17/23 17:31 Ketorolac Tromethamine 15 Mg/Ml Vial IVPUSH 05/17/23 17:17 15 mg ONCE ONE Administration Medical Decision Making Medical Decision Making MDM Narrative: Patient is a 62 year old assigned female at with a history of GERD and hypothyroidism presenting to the emergency department today with nasal congestion and sinus pressure. Patient's physical exam was as noted in the physical exam portion of this note. Patient's blood work was unremarkable. Patient's EKG was unremarkable. I explained my physical exam findings as well as all test results to the patient. I answered all questions asked by the patient. I stressed the importance of the patient taking her medication as prescribed. I stressed the importance of the patient following up with her primary care provider. I stressed the importance of the patient returning to the emergency department immediately if her symptoms were to worsen or if she were to develop any dizziness, shortness of breath, difficulty breathing, chest pain, blurry vision, loss of vision, nausea, vomiting, abdominal pain, fever, chills, back pain, or any other complaints. Patient verbalized agreement and understanding with this treatment plan and discharge. Differential Diagnosis Differential Diagnoses: The differential diagnosis associated with the presentation includes Sinusitis Viral illness Sinus pain Nasal congestion Admission/Observation Consideration of admission/observation: Escalation of care including admission/observation considered Patient would have been admitted to the hospital had her work up had any findings where hospital admission was appropriate and her clinical presentation warranted hospital admission. Lab Data [facility] Lab Attestation statement: I reviewed the patient's lab results. My interpretation of these results are in the MDM Rationale portion of this note. 05/17/23 17:02 05/17/23 17:02 Labs: Lab Results 05/17/23 Range/Units 17:02 WBC 5.8 (4.8-10.8) X10*3/uL RBC 4.09 L (4.20-5.50) X10*6/uL Hgb 12.9 (12.0-16.0) g/dl Hct 36.5 L (37.0-47.0) % MCV 89.2 (80.0-98.0) fL MCH 31.5 (27.0-33.0) pg MCHC 35.3 H (31.0-35.0) g/dl RDW 11.6 (11.0-16.0) % Plt Count 295 (160-400) X10*3/uL MPV 9.3 L (9.4-12.3) fL Immature Gran % (Auto) 0.2 (0.0-0.4) % Neut % (Auto) 53.5 (45-73) % Lymph % (Auto) 37.2 (20-40) % [place] % (Auto) 7.1 (2-11) % Eos % (Auto) 1.7 (0-4) % Baso % (Auto) 0.3 (0-2) % Lymph # (Auto) 2.2 (1.2-4.9) X10*3/uL [place] # (Auto) 0.4 (0.1-1.2) X10*3/uL Eos # (Auto) 0.1 (0.0-0.4) X10*3/uL Baso # (Auto) 0.0 (0.0-0.2) X10*3/uL Abs Immat Gran (auto) 0.01 (0.00-0.03) X10*3/uL Absolute Neuts (auto) 3.1 (2.0-8.3) x10*3/uL Absolute Nucleated RBC 0.000 (0.0-0.012) X10*3/uL Nucleated RBC % (auto) 0.0 (0.0-0.2) /100WBC Sodium 139 (135-145) mmol/L Potassium 3.7 (3.3-5.1) mmol/L Chloride 103 (96-108) mmol/L Carbon Dioxide 26 (22-29) mmol/L Anion Gap 14 (12-20) BUN 13 (9-16) mg/dL Creatinine 0.83 (0.5-1.4) mg/dL Estim Creat Clear Calc 74.5 Estimated GFR > 60 Random Glucose 100 (60-115) mg/dL Calcium 9.2 (8.4-10.2) mg/dL Total Bilirubin 0.4 (0.0-1.0) mg/dL AST 18 (5-31) U/L ALT 17 (0-31) U/L Alkaline Phosphatase 47 (39-117) U/L Total Protein 7.4 (6.5-8.0) g/dL Albumin 4.1 (3.5-5.0) g/dL Independent Interpretation I performed an independent interpretation of an: EKG Interpretation: Vent. Rate: 069 BPM Atrial Rate: 069 BPM P-R Int: 156 ms QRS Dur: 080 ms QT Int: 392 ms P-R-T Axes: 067 007 005 degrees QTc Int: 420 ms Normal sinus rhythm Normal ECG When compared with ECG of 17-NOV-2022 22:21, Nonspecific T wave abnormality now evident in Anterior leads DD/ 1640 Tests considered The following testing was considered but not selected: I considered a CT scan of the head however, the patient's current clinical presentation did not warrant this. I explained this to the patient who verbalized agreement and understanding. Prescription Management I considered prescription management with: Antibiotic (patient already on Augmentin) Discharge Plan Discharge Clinical Impression: Sinusitis Patient Disposition: Home, Self-Care Instructions: Sinusitis (ED) Additional Instructions: Take your antibiotic as prescribed by the Urgent Care provider. Follow up with your primary care provider. Return to the emergency department immediately if your symptoms worsen or if you develop any dizziness, shortness of breath, difficulty breathing, chest pain, blurry vision, loss of vision, nausea, vomiting, abdominal pain, fever, chills, back pain, or any other complaints. Prescriptions: No Action simvastatin 5 mg tablet 5 mg PO BEDTIME Qty: 90 3RF levothyroxine [Synthroid] 125 mcg tablet 125 mcg PO DAILY Qty: 90 3RF zolpidem 10 mg tablet 10 mg PO BEDTIME PRN (Reason: insomnia) Qty: 30 2RF cetirizine 10 mg tablet 10 mg PO DAILY PRN (Reason: allergy symptoms) 90 Days Qty: 90 0RF meclizine 25 mg tablet 25 mg PO TID PRN (Reason: dizziness) Qty: 20 0RF amoxicillin-pot clavulanate 875-125 mg tablet 1 tab PO BID Qty: 14 0RF sennosides [Natural Senna Laxative] 8.6 mg tablet 17.2 mg PO BEDTIME Qty: 60 1RF albuterol sulfate 90 mcg/actuation HFA aerosol inhaler 2 puff inhalation Q6H PRN (Reason: wheezing) docusate sodium 100 mg capsule 100 mg PO BEDTIME Qty: 90 3RF Referrals: Po,Tanya Shelby MD [Primary Care Provider] - Interventions: ED Discharge Assessment Last Done: 05/17/23 19:42 Discharge Date/Time: 05/17/23 19:42 Print Language: Gabonese
--- NOTE | 2023-05-17 15:26 | ECG_ITS ---
Test Reason : DIZZINESS Blood Pressure : / mmHG Vent. Rate : 069 BPM Atrial Rate : 069 BPM P-R Int : 156 ms QRS Dur : 080 ms QT Int : 392 ms P-R-T Axes : 067 007 005 degrees QTc Int : 420 ms Normal sinus rhythm Normal ECG When compared with ECG of 17-NOV-2022 22:21, Nonspecific T wave abnormality now evident in Anterior leads Referred By: Ness Peter Electronically Signed By:VERNA JACKSON
[2023-05-17 17:08] LABS: MANUAL DIFF FLAG NO
[2023-05-17 17:09] LABS: Basophils Percent Auto 0.3 % (0-2); Eosinophils Absolute Auto 0.1 X10*3/uL (0.0-0.4); Eosinophils Percent Auto 1.7 % (0-4); Hematocrit 36.5 % (37.0-47.0); Hemoglobin 12.9 g/dl (12.0-16.0); Imm Gran Abs Auto 0.01 X10*3/uL (0.00-0.03); Imm Gran Pct Auto 0.2 % (0.0-0.4); Lymphocytes Absolute Auto 2.2 X10*3/uL (1.2-4.9); Lymphocytes Percent Auto 37.2 % (20-40); Mean Corpuscular HGB Conc 35.3 g/dl (31.0-35.0); Mean Corpuscular Hemoglobin 31.5 pg (27.0-33.0); Mean Corpuscular Volume 89.2 fL (80.0-98.0); Mean Platelet Volume 9.3 fL (9.4-12.3); Monocytes Absolute Auto 0.4 X10*3/uL (0.1-1.2); Monocytes Percent Auto 7.1 % (2-11); Neutrophils Absolute Auto 3.1 x10*3/uL (2.0-8.3); Neutrophils Percent Auto 53.5 % (45-73); Platelet Count 295 X10*3/uL (160-400); Red Blood Count 4.09 X10*6/uL (4.20-5.50); Red Cell Distribution Width 11.6 % (11.0-16.0); White Blood Count 5.8 X10*3/uL (4.8-10.8)
[2023-05-17 17:22] LABS: Alanine Aminotransferase 17 U/L (0-31); Albumin Level 4.1 g/dL (3.5-5.0); Alkaline Phosphatase 47 U/L (39-117); Anion Gap 14 (12-20); Aspartate Amino Transferase 18 U/L (5-31); Bilirubin Total 0.4 mg/dL (0.0-1.0); Blood Urea Nitrogen 13 mg/dL (9-16); Calcium 9.2 mg/dL (8.4-10.2); Carbon Dioxide 26 mmol/L (22-29); Chloride 103 mmol/L (96-108); Creatinine Clr Calc Pharmacy 74.5; Estimated Glomerular Filt Rate > 60; Glucose Random 100 mg/dL (60-115); Potassium 3.7 mmol/L (3.3-5.1); Sodium 139 mmol/L (135-145); Total Protein 7.4 g/dL (6.5-8.0)
[2023-05-17] MEDS: Ketorolac Tromethamine 15 MG/ML VIAL IVPUSH (17:31)
[2023-05-17] MEDS: Amoxicillin/Potassium Clav 875 MG TABLET PO (17:31)
[2023-05-17] MEDS: 0.9 % Sodium Chloride 1,000 ML 999 ML IV (17:31)
[2023-05-17 19:28] VITALS: BP 138/79; PULSE 73
[2023-05-17 19:30] VITALS: BP 138/72; PULSE 70
[2023-05-17 19:32] VITALS: BP 119/74; PULSE 75
== END 2023-05-17 19:42 | disposition home or self-care (01) ==
PROVIDERS: Nurse Practitioner Family; Emergency Provider Emergency Medicine; PCP Internal Medicine
DX: J32.8 Other chronic sinusitis (principal); R42 Dizziness and giddiness
CPT/HCPCS: 36415; 80053; 85025; 93005; 96361; 96374; 99284; J1885

== ENCOUNTER → 2023-05-17 15:26 | Outpatient (BNV) | payer OTHER, SELFPAY | PROVIDERS: Emergency Provider Emergency Medicine; PCP Internal Medicine; Visit Provider Internal Medicine | DX: R42 Dizziness and giddiness (principal) | CPT/HCPCS: 93010 ==

== ENCOUNTER 2023-06-17 15:53 | Outpatient (AMB) | payer OTHER, SELFPAY ==
[2023-06-17 16:05] VITALS: BP 130/88; PULSE 67; O2SAT 98; BMI 25.8
--- NOTE | 2023-06-17 16:05 | MHC.PC.OV ---
Vital Signs 06/17/23 16:05 Height 5 ft 6 in Weight 160 lb BMI 25.8 BP 130/88 Blood Pressure Location Lt brachial Position Sitting Pulse 67 Pulse Source Pulse Oximeter Pulse Oximetry (%) 98 Oxygen Delivery Method Room Air Intake [place] [facility] [place]ergies No Known Allergies [No Known Allergies*] Allergy (Verified 06/17/23 16:05) Medication List - Last Reconciled 06/17/23 by Tanya Child MD albuterol sulfate 90 mcg/actuation 2 puffs inhalation Q6H PRN azithromycin (Zithromax) For 250 mg dose pack: take 500 mg today (day 1), then 250 mg for 4 days (days 2-5) PO cetirizine 10 mg PO DAILY PRN 90 days docusate sodium 100 mg PO BEDTIME fluticasone propionate 50 mcg/actuation (Flonase Allergy Relief) 2 sprays intranasal DAILY meclizine 25 mg PO TID PRN sennosides (Natural Senna Laxative) 17.2 mg (2 x 8.6 mg) PO BEDTIME simvastatin 5 mg PO BEDTIME Synthroid (levothyroxine) 125 mcg PO DAILY NS zolpidem 10 mg PO BEDTIME PRN Tobacco use date assessed: 06/17/23 Dental Screening Dental Screen Date: 06/17/23 Did you have a dental visit in the last 12 months?: Yes Did you have a dental problem in the last 6 months where you did not have access to dental care?: No Was dental information given to patient?: Patient has dentist [place] [facility] [place] Details 62-year-old female with hypercholesterolemia hypothyroidism impaired glucose tolerance generalized anxiety disorder GERD last seen in March 2023. Patient had colonoscopy done March 2023 but with a poor prep. Mammogram is due this month. May noted to have ER visit for nasal congestion sinus pressure was prescribed Augmentin clear but was advised to go to ER. complained of dizziness, rx augmentin - because of dizziness advised ER visit for CT scan but this was not done due to evaluation. sent home on sinus med. Patient saw dentist shira and was told seen teeth infection mold L side - was given amoxillin again. no fevers, no sore throat, no cough L cheek pressure , had ear pain occ dizzy, PFSH Medical History Impaired glucose tolerance COVID-19 virus infection Annual physical exam Hemorrhoid Colon cancer screening Myalgia Cervical cancer screening SOB (shortness of breath) RUQ abdominal pain Obesity (BMI 30.0-34.9) Endocervical polyp Hematuria Facial lesion Abdominal bloating Exposure to COVID-19 virus Peripheral vascular disease History of renal calculi Mixed stress and urge urinary incontinence Anemia GERD (gastroesophageal reflux disease) Insomnia Vitamin D deficiency Hypothyroid Hypercholesterolemia Surgical History Hx of colonoscopy History of tubal ligation Family History Father No problems noted. Mother Liver cancer Diabetes Hypertension Cirrhosis Paternal Aunt Breast cancer Father No problems noted. Mother Liver cancer Diabetes Hypertension Cirrhosis Paternal Aunt Breast cancer Social History Housing: House Alcohol intake: current Alcohol intake frequency: does not drink Patient Tobacco Use Status: Former Tobacco user Tobacco use type: Cigarette Years Smoked: 27 years old e-Cigarette/Vaping Use: Never Used Second Hand Smoke Exposure: No service: No Current occupational status: unemployed Cognitive needs: No Hearing needs: No Vision needs: Yes Female Reproductive History Menstrual Age of Menarche: 11 Questionnaire PHQ-9 Over the last 2 weeks, how often have you been bothered by any of the following problems? 1. Little interest or pleasure in doing things: several days 2. Feeling down, depressed, or hopeless: several days 3. Trouble falling or staying asleep, or sleeping too much: several days 4. Feeling tired or having little energy: several days 5. Poor appetite or overeating: not at all 6. Feeling bad about yourself - or that you are a failure or have let yourself or your family down: not at all 7. Trouble concentrating on things, such as reading the newspaper or watching television: not at all 8. Moving or speaking so slowly that other people could have noticed. Or the opposite - being so fidgety or restless that you have been moving around a lot more than usual: not at all 9. Thoughts that you would be better off or of hurting yourself in some way: not at all Total score: 4 Depression Screening Interpretation: Positive Depression Screening Done: Yes Source: Developed by Drs. Abdiel Solomon, Riki Osuna and colleagues, with an educational lana from [employer]. Thrive Questionnaire Date Thrive assessed: 06/17/23 I am a: Patient What is your living situation today?: I have a steady place to live Within the past 12 months, did the food you bought not last and you didn't have the money to get more?: Never true Within the past 12 months, did you worry whether your food would run out before you got money to buy more?: Never true Do you have trouble paying for medicines?: No Do you have trouble getting transportation to medical appointments?: No Do you have trouble paying your heating and electricity bill?: No Do you have trouble taking care of your child, family member or friend?: No Do you have trouble with day-to-day activities such as bathing, preparing meals, shopping, managing finances, etc.?: No Are you currently unemployed and looking for a job?: No Are you interested in more education?: No Currently or been in a relationship where the following occur: no concerns reported THRIVE Score: 0 AUDIT C Alcohol Use Questionnaire (AUDIT-C) 1. How often do you have a drink containing alcohol?: Monthly or less 2. How many drinks containing alcohol do you have on a typical day when you are drinking?: 1 or 2 3. How often do you have six or more drinks on one occasion?: Never Total Score: 1 JENNIE-7 AMB Questionnaire JENNIE-7 Date JENNIE - 7 assessed: 06/17/23 Feeling nervous, anxious, or on edge: 0 = Not at all Not being able to stop or control worryin = Not at all Worrying too much about different things: 0 = Not at all Trouble relaxin = Not at all Being so restless that it is hard to sit still: 0 = Not at all Becoming easily annoyed or irritable: 0 = Not at all Feeling afraid as if something awful might happen: 0 = Not at all Total JENNIE-7 score (0-4 normal; 5-9 mild; 10-14 moderate; 15-21 severe): 0 Source: Developed by Drs. Abdiel Solomon, Riki Osuna and colleagues, with an educational lana from [employer]. Physical exam (Primary Care) Vital Signs: Last Vital Signs Pulse 67 06/17/23 16:05 BP 130/88 06/17/23 16:05 Pulse Ox 98 06/17/23 16:05 Oxygen Delivery Method Room Air 06/17/23 16:05 BMI result Body Mass Index 25.8 Tobacco/Smoking Status: Tobacco use Status Tobacco use date assessed 06/17/23 06/17/23 16:14 Patient Tobacco Use Status Former Tobacco user 06/17/23 16:14 Tobacco use type Cigarette 06/17/23 16:14 e-Cigarette/Vaping Use Never Used 06/17/23 16:14 PHQ-9: PHQ-9 Score PHQ-9: Total score 4 06/17/23 16:14 Depression Screening Interpretation: Positive Thrive Assessment: Date of Thrive Assessment Date Thrive assessed 06/17/23 06/17/23 16:14 Currently or been in a relationship where the following occur: no concerns reported Const General: alert; No acute distress Eyes Conjunctivae: conjunctivae normal Resp Auscultation: clear to auscultation bilaterally Cardio Rate: regular rate Rhythm: regular rhythm GI Inspection: Yes normal to inspection Extrem General: Yes normal to inspection and No edema Assessment and Plan Assessment & Plan (1) GERD (gastroesophageal reflux disease): Code(s): K21.9 - Gastro-esophageal reflux disease without esophagitis Qualifiers: Esophagitis presence: without esophagitis Qualified Code(s): K21.9 - Gastro-esophageal reflux disease without esophagitis Plan: Avoid the foods that causes that usually spicy foods, tomato products, juices, coffee, soda and foods that your sensitive to. After eating do not lie down, allow 3-4 hours before in lie down. And keep the head of bed above 30 degrees to avoid the acid from going up. (2) Hypercholesterolemia: Code(s): E78.00 - Pure hypercholesterolemia, unspecified Plan: Avoid fried foods, chicken skin, eggs, butter margarine, pastries and meat. Be it pork or beef they have a lot of cholesterol on simvastatin 5 mg once a day (3) Insomnia: Code(s): G47.00 - Insomnia, unspecified Qualifiers: Insomnia type: primary Qualified Code(s): F51.01 - Primary insomnia Plan: Continue with zolpidem as needed Orders: Orders XR sinus min 3V Today J01.00 - Acute maxillary sinusitis, unspecified Medications: New fluticasone propionate 50 mcg/actuation (Flonase Allergy Relief) administer into each nostril 2 sprays intranasal DAILY 16 grams 0RF J01.00 - Acute maxillary sinusitis, unspecified azithromycin (Zithromax) For 250 mg dose pack: take 500 mg today (day 1), then 250 mg for 4 days (days 2-5) PO 6 tabs 0RF J01.00 - Acute maxillary sinusitis, unspecified Refilled zolpidem 10 mg PO BEDTIME PRN 30 tabs 2RF insomnia F51.01 - Primary insomnia Coding Level of Care Code Est Pt Level 4 (35907) Diagnoses Gastroesophageal reflux disease without esophagitis K21.9 Esophagitis presence: without esophagitis Hypercholesterolemia E78.00 Primary insomnia F51.01 Insomnia type: primary
== END 2023-06-17 17:35 | disposition home or self-care (01) ==
PROVIDERS: PCP Internal Medicine; Visit Provider Internal Medicine
DX: K21.9 Gastro-esophageal reflux disease without esophagitis (principal); E78.00 Pure hypercholesterolemia, unspecified; F51.01 Primary insomnia
CPT/HCPCS: 99214

== ENCOUNTER 2023-06-20 13:14 | Outpatient (REF) | payer OTHER, SELFPAY ==
--- NOTE | ~2023-06-20 | XR_ITS ---
EXAMINATION: XR SINUSES CLINICAL INFORMATION: Acute maxillary sinusitis COMPARISON: Sinus CT March 22, 2019 TECHNIQUE: 4 views of the sinuses were obtained. FINDINGS: Maxillary sinuses appear well aerated. Frontal sinuses appear well aerated. Ethmoid air cells appear well aerated. Mastoid air cells appear well aerated. The sphenoid sinus appears well aerated. No gross bony abnormality identified. XR/XR sinus min 3V IMPRESSION: No radiographic evidence of acute sinusitis.
== END 2023-06-20 13:15 | disposition home or self-care (01) ==
LOC: HO.XRAY 13:14
PROVIDERS: PCP Internal Medicine; Visit Provider Internal Medicine
DX: J01.00 Acute maxillary sinusitis, unspecified (principal)
CPT/HCPCS: 70220

== ENCOUNTER 2023-06-27 08:35 | Outpatient (REF) | payer OTHER, SELFPAY ==
--- NOTE | ~2023-06-27 | MM_ITS ---
EXAMINATION: MM SCREENING DIGITAL BREAST TOMOSYNTHESIS, BILATERAL CLINICAL INFORMATION: Screening. Asymptomatic. COMPARISON: Mammography: 06/25/2022, 06/21/2021, 06/20/2020, 06/15/2019. Dating back to 2012. TECHNIQUE: Digital breast tomosynthesis is performed in both the craniocaudal and mediolateral oblique views along with computer-aided detection (CAD). Synthesized 2D images are generated from the tomosynthesis. FINDINGS: The breasts are heterogeneously dense, which may obscure small masses (ACR BI-RADS breast composition Category c). Within the posterior right breast, CC view only, just lateral to the nipple line, there is a 1 view asymmetry without MLO correlate, most likely representing summation artifact, but further characterization is warranted with spot magnification view in the CC projection as well as a full-field right mediolateral view. Otherwise, there are no suspicious masses, suspicious grouped calcifications, or areas of architectural distortion in either breast. There are a few scattered punctate benign calcifications bilaterally. The parenchymal pattern is otherwise stable from prior exams. No skin or axillary abnormalities. MM/MM tomosynthesis screening BI IMPRESSION: 1 view asymmetry right posterior CC view as detailed. Diagnostic views recommended as above. This is probably summation artifact of further characterization is required. No additional suspicious findings in either breast. ASSESSMENT: BI-RADS BI-RADS 0 - Incomplete: Needs additional Imaging. RECOMMENDATION: 1. Additional views of the right breast. 2. Targeted ultrasound if warranted after review of the additional views. 3. Radiology department staff will contact the patient for additional imaging. Additional Imaging required
== END 2023-06-27 08:36 | disposition home or self-care (01) ==
LOC: HO.MAMMO 08:35
PROVIDERS: PCP Internal Medicine; Visit Provider Internal Medicine
DX: Z12.31 Encounter for screening mammogram for malignant neoplasm of breast (principal)
CPT/HCPCS: 77063; 77067

== ENCOUNTER → 2023-06-27 08:45 | Outpatient (BNV) | payer OTHER, SELFPAY | PROVIDERS: PCP Internal Medicine; Visit Provider Radiology Diagnostic Radiology | DX: Z12.31 Encounter for screening mammogram for malignant neoplasm of breast (principal) | CPT/HCPCS: 77063; 77067 ==

== ENCOUNTER 2023-08-14 14:52 | Outpatient (REF) | payer OTHER, SELFPAY ==
--- NOTE | ~2023-08-14 | MM_ITS ---
EXAMINATION: MM DIAGNOSTIC DIGITAL BREAST TOMOSYNTHESIS, RIGHT CLINICAL INFORMATION: Follow-up one view asymmetry within the posterior right breast CC view only, just lateral to the nipple line. No MLO correlate. COMPARISON: Mammography: 06/27/2023 and dating back to 2012 as detailed in prior report. TECHNIQUE: Digital breast tomosynthesis is performed. 2D images are generated from the tomosynthesis. The following views are obtained: 3-D spot compression right cc view, as well as a full-field digital 3-D right mediolateral view. FINDINGS: The breasts are heterogeneously dense, which may obscure small masses (ACR BI-RADS breast composition Category c). Additional views demonstrate no persisting mass, architectural distortion, or abnormal grouped calcifications. The one view asymmetry previously seen does not persist and is consistent with overlapping tissue/summation artifact. There are no suspicious findings persisting. MM/MM tomosynthesis added views R IMPRESSION: No persistent findings suspicious for malignancy in the right breast. Recommend the patient return to routine annual screening. ASSESSMENT: BI-RADS BI-RADS 1 - Negative RECOMMENDATION: 1 year F/U Results were provided to the patient at time of visit by the technologist. This patient's information was entered into a reminder system with a target due date for their next mammogram.
== END 2023-08-14 14:53 | disposition home or self-care (01) ==
LOC: HO.MAMMO 14:52
PROVIDERS: PCP Internal Medicine; Visit Provider Internal Medicine
DX: N64.89 Other specified disorders of breast (principal)
CPT/HCPCS: 77061; 77065

== ENCOUNTER → 2023-08-14 15:00 | Outpatient (BNV) | payer OTHER, SELFPAY | PROVIDERS: PCP Internal Medicine; Visit Provider Radiology Diagnostic Radiology | DX: R92.8 Other abnormal and inconclusive findings on diagnostic imaging of breast (principal) | CPT/HCPCS: 77061; 77065 ==

== ENCOUNTER 2023-08-21 07:26 | Day surgery (SDC) | payer OTHER, SELFPAY ==
--- NOTE | 2023-08-20 09:47 | HO.ANESPROP2 ---
Documented by User: Tiffany Moyer NP 08/20/23 09:48 HPI - Anesthesia Eval Consult details Narrative: 63yo F for Colonoscopy PMFSH Active Problems Active Problems: All Active Problems Acute maxillary sinusitis (Acute) Myxoid cyst (Acute) Hemorrhoid (Acute) Generalized anxiety disorder (Acute) Chronic gastritis (Acute) IBS (irritable bowel syndrome) (Acute) Allergic rhinitis (Acute) Hypothyroid (Acute) Insomnia (Acute) GERD (gastroesophageal reflux disease) (Acute) Hypercholesterolemia (Acute) Past Medical History Medical History Impaired glucose tolerance COVID-19 virus infection Annual physical exam Hemorrhoid Colon cancer screening Myalgia Cervical cancer screening SOB (shortness of breath) RUQ abdominal pain Obesity (BMI 30.0-34.9) Endocervical polyp Hematuria Facial lesion Abdominal bloating Exposure to COVID-19 virus Peripheral vascular disease History of renal calculi Mixed stress and urge urinary incontinence Anemia GERD (gastroesophageal reflux disease) Insomnia Vitamin D deficiency Hypothyroid Hypercholesterolemia Family History Family History Father No problems noted. Mother Liver cancer Diabetes Hypertension Cirrhosis Paternal Aunt Breast cancer Father No problems noted. Mother Liver cancer Diabetes Hypertension Cirrhosis Paternal Aunt Breast cancer Family history of problems with anesthesia: No Surgical History Surgical History Hx of colonoscopy History of tubal ligation History of Problems with Anesthesia: No Social History Social History Housing: House Alcohol intake: current Alcohol intake frequency: does not drink Patient Tobacco Use Status: Former Tobacco user Tobacco use type: Cigarette Years Smoked: 27 years old e-Cigarette/Vaping Use: Never Used Second Hand Smoke Exposure: No Advance Directives: No Advance Directives Information Provided: Yes service: No Current occupational status: unemployed Cognitive needs: No Hearing needs: No Vision needs: Yes Meds Allergies Allergy/AdvReac Type Severity Reaction Status Date / Time No Known Allergies Allergy Verified 06/17/23 16:05 [No Known Allergies*] Exam Pertinent Lab Results Pertinent Lab Results: Laboratory Tests 05/17/23 17:02 WBC 5.8 Hgb 12.9 Hct 36.5 L Plt Count 295 Sodium 139 Potassium 3.7 Chloride 103 Carbon Dioxide 26 BUN 13 Creatinine 0.83 Narrative Narrative: EKG 05/2023 Vent. Rate : 069 BPM Atrial Rate : 069 BPM P-R Int : 156 ms QRS Dur : 080 ms QT Int : 392 ms P-R-T Axes : 067 007 005 degrees QTc Int : 420 ms Normal sinus rhythm Normal ECG When compared with ECG of 17-NOV-2022 22:21, Nonspecific T wave abnormality now evident in Anterior leads Assessment and Plan Assessment Anesthesia Assessment: Chart Reviewed Final Anesthetic Review Family History of Problems with Anesthesia: No History of Problems with Anesthesia: No Documented by User: Saúl Schulte MD 08/21/23 09:04 PMF Past Medical History Medical History Impaired glucose tolerance COVID-19 virus infection Annual physical exam Hemorrhoid Colon cancer screening Myalgia Cervical cancer screening SOB (shortness of breath) RUQ abdominal pain Obesity (BMI 30.0-34.9) Endocervical polyp Hematuria Facial lesion Abdominal bloating Exposure to COVID-19 virus Peripheral vascular disease History of renal calculi Mixed stress and urge urinary incontinence Anemia GERD (gastroesophageal reflux disease) Insomnia Vitamin D deficiency Hypothyroid Hypercholesterolemia Family History Family History Father No problems noted. Mother Liver cancer Diabetes Hypertension Cirrhosis Paternal Aunt Breast cancer Father No problems noted. Mother Liver cancer Diabetes Hypertension Cirrhosis Paternal Aunt Breast cancer Surgical History Surgical History Hx of colonoscopy History of tubal ligation Social History Social History Housing: House Alcohol intake: current Alcohol intake frequency: does not drink Patient Tobacco Use Status: Former Tobacco user Tobacco use type: Cigarette Years Smoked: 27 years old e-Cigarette/Vaping Use: Never Used Second Hand Smoke Exposure: No Advance Directives: No Advance Directives Information Provided: Yes service: No Current occupational status: unemployed Cognitive needs: No Hearing needs: No Vision needs: Yes Meds Allergies Allergy/AdvReac Type Severity Reaction Status Date / Time No Known Allergies Allergy Verified 06/17/23 16:05 [No Known Allergies*] Exam Airway Mallampati Class: II TM Dist: >3cm Neck ROM: Full Loose/Missing/Broken Teeth: No Heart: ok Lungs: ok Assessment and Plan Assessment Anesthesia Assessment: Anesthesia Plan Discussed Final Anesthetic Review NPO: Yes ASA Class: III Final Preanesthetic Review: No Changes in Pt Med Stat, Meds/Allgs Chart Reviewed, Consent Obtained/Reviewed and Anes Risks/Benef Reviewed Patient Risk: Intermediate Procedure Risk: Low Anesthetic Plan Anesthetic Plan: MAC: and Agree w/ Assess. and Plan Disposition: Standard PACU
[2023-08-21 07:57] VITALS: BP 130/74; PULSE 84; RESP 14; TEMP 36.3; O2SAT 98; BMI 26.2
[2023-08-21] MEDS: Lactated Ringers 1,000 ML 100 ML IVCONT (08:19)
--- NOTE | 2023-08-21 08:42 | MHC.SHP ---
Pre-Procedural Eval Section A - 24 Hr Update-Section A only Date of Service: 08/21/23 Section B - Complete if H&P > 30 days Chief Complaint: screening Relevant Family History (Specify if Yes): No Relevant Social History: None Present Medications: see Short Stay Collaborative assessment Medical History: Significant History (Impaired glucose tolerance COVID-19 virus infection Annual physical exam Hemorrhoid Colon cancer screening Myalgia Cervical cancer screening SOB (shortness of breath) RUQ abdominal pain Obesity (BMI 30.0-34.9) Endocervical polyp Hematuria Facial lesion Abdominal bloating Exposure to COVID-19 virus P) History of Previous Operations: Relevant previous surgery/procedure and date(s) ( Hx of colonoscopy History of tubal ligation) Allergies: Allergies Allergy/AdvReac Type Severity Reaction Status Date / Time No Known Allergies Allergy Verified 06/17/23 16:05 [No Known Allergies*] Review of Systems Sugical H&P ROS: Negative: Constitution, Cardiovascular, Respiratory, Neurological, Psychiatric, Hem-Onc, Allergic/Immunologic, Gastrointestinal, Genitourinary, Musculoskeletal, Integumentary, Endocrine and Eyes/Ears/Nose/Throat Exam Surgical H&P Exam: Normal: HEENT, Normal: Heart, Normal: Lungs, Normal: Extremities, Normal: Abdomen, Normal: Skin and Normal: Neurological Plan Diagnosis/Plan: Unchanged I have reviewed the history and physical and performed a pertinent physical examination on my patient. No changes have occurred unless specified. Time Spent With Patient Time: Total time managing care of this patient today ____ minutes.
--- NOTE | 2023-08-21 08:53 | HO.OPN-COLON ---
Colonoscopy Operative Note Operative Note Date of Service: 08/21/23 Narrative: Operative Information Procedure Description: Colonoscopy Indication: screening Anesthesia: MAC COLONOSCOPY Instrument: Olympus variable stiffness pediatric scope 190L Colonoscopy Monitoring: Vital signs and clinical assessment, continuous EKG monitoring, Pulse oximetry, Carbon Dioxide monitoring and blood pressure monitoring were done throughout the procedure. Colon withdrawal time was 10 minutes. Procedure: The patient was placed in the left lateral decubitis position and pre-procedure medications were administered. After a digital rectal examination of the ano-rectum, the video colonoscope was inserted into the rectum and advanced through the colon to the cecum/TI. The colonoscope was slowly withdrawn in a retrograde panoramic fashion and the colon mucosa was carefully examined including a retroflexed view of the rectum. Findings and interventions are described below. Procedure Difficulty: easy Findings: Terminal Ileum-normal Cecum:normal Ascending Colon: normal Transverse Colon - 8-10 mm sessile polyp removed with cold snare Descending Colon:normal Sigmoid Colon: normal Rectum: Retroflexion with small internal hemorrhoids seen, grade I, 5-7 mm sessile polyp removed with cold snare Anorectum - normal Intervention: cold snare Colon preparation: [place] Bowel Preparation Scale Right colon; 2 Transverse colon: 2 Left colon; 1-2 (0 = Unprepared colon segment with mucosa not seen due to solid stool that cannot be cleared. 1 = Portion of mucosa of the colon segment seen, but other areas of the colon segment not well seen due to staining, residual stool and/or opaque liquid. 2 = Minor amount of residual staining, small fragments of stool and/or opaque liquid, but mucosa of colon segment seen well. 3 = Entire mucosa of colon segment seen well with no residual staining, small fragments of stool or opaque liquid) Impression and Post Procedure Diagnosis: colon polyps internal hemorrhoids Plan: High fiber diet leaflet Avoid straining at stool, epsom salts and sitz bath, anusol supps or cream Repeat Colonoscopy in 3 years due to fair prep in left or earlier if clinically indicated Above findings were reviewed with the patient and relevant handouts were provided if indicated.
[2023-08-21 09:23] VITALS: BP 104/55; PULSE 69; RESP 18; TEMP 36.1; O2SAT 98
[2023-08-21 09:38] VITALS: BP 108/59; PULSE 69; RESP 18; TEMP 36.7; O2SAT 97
== END 2023-08-21 09:59 | disposition home or self-care (01) ==
PROVIDERS: PCP Internal Medicine; Visit Provider Internal Medicine Gastroenterology
PROC: 0DJD8ZZ Inspection of Lower Intestinal Tract, Via Natural or Artificial Opening Endoscopic (ICD-10-PCS; CPT 45378; principal; 2023-08-21 09:00)
DX: Z12.11 Encounter for screening for malignant neoplasm of colon (principal); D12.3 Benign neoplasm of transverse colon; K62.1 Rectal polyp; K64.0 First degree hemorrhoids
CPT/HCPCS: 45385; 88305; J2704

== ENCOUNTER → 2023-08-21 07:26 | Outpatient (BNV) | payer OTHER, SELFPAY | PROVIDERS: PCP Internal Medicine; Visit Provider Internal Medicine Gastroenterology | DX: Z12.11 Encounter for screening for malignant neoplasm of colon (principal); D12.3 Benign neoplasm of transverse colon; K62.1 Rectal polyp; K64.0 First degree hemorrhoids | CPT/HCPCS: 45385 ==

== ENCOUNTER 2023-09-03 08:02 | Outpatient (AMB) | payer OTHER, SELFPAY ==
[2023-09-03 08:03] VITALS: BP 109/62; PULSE 72; BMI 26.1
--- NOTE | 2023-09-03 08:03 | A.OFFVIS_ITS ---
Vital Signs 09/03/23 08:03 Height 5 ft 4 in Weight 152 lb 1.903 oz BMI 26.1 BP 109/62 Blood Pressure Location Lt brachial Position Sitting Pulse 72 Intake Visit Reasons: s/p colon Intake Note: Xena presents in the office as a follow up colonoscopy. CC: She wants to know if there is a cream you are able to give her for her hemorrhoids. Just irritation - no bleeding. No irregular bowel movements. Allergies No Known Allergies [No Known Allergies*] Allergy (Verified 09/03/23 08:03) HPI HPI s/p colon: Details: LAST VISIT Hemorrhoid IBS (irritable bowel syndrome) GERD (gastroesophageal reflux disease) Constipation Screen for colon cancer Plan Patient will continue take senna, will add Colace. Encourage patient to increase fluid intake and activity to promote better bowel motility. The importance of clear liquid diet day before procedure as well as good bowel prep. Patient will do Clenpiq instead of MiraLax prep. Patient denies any cardiac or respiratory symptoms. Will schedule colonoscopy for August. I will see her after the procedure, sooner on as needed basis. Patient is agreeable to this plan and verbalizes understanding of instructions. She was given the opportunity to ask questions and all questions answered. ? Thank you for allowing me to participate in her care Medications New docusate sodium 100 mg PO BEDTIME 90 caps 3RF K59.00 COLONOSCOPY Findings: Terminal Ileum-normal Cecum:normal Ascending Colon: normal Transverse Colon - 8-10 mm sessile polyp removed with cold snare Descending Colon:normal Sigmoid Colon: normal Rectum: Retroflexion with small internal hemorrhoids seen, grade I, 5-7 mm sessile polyp removed with cold snare Anorectum - normal Intervention: cold snare Colon preparation: [place] Bowel Preparation Scale Right colon; 2 Transverse colon: 2 Left colon; 1-2 (0 = Unprepared colon segment with mucosa not seen due to solid stool that cannot be cleared. 1 = Portion of mucosa of the colon segment seen, but other areas of the colon segment not well seen due to staining, residual stool and/or opaque liquid. 2 = Minor amount of residual staining, small fragments of stool and/or opaque liquid, but mucosa of colon segment seen well. 3 = Entire mucosa of colon segment seen well with no residual staining, small fragments of stool or opaque liquid) Impression and Post Procedure Diagnosis: colon polyps internal hemorrhoids Plan: High fiber diet leaflet Avoid straining at stool, epsom salts and sitz bath, anusol supps or cream Repeat Colonoscopy in 3 years due to fair prep in left or earlier if clinically indicated PATHOLOGY RESULTS Diagnosis A. Colon, transverse, polypectomy: Fragments of tubular adenoma; negative for high-grade dysplasia or carcinoma. B. Rectum, polypectomy: Colonic mucosa with prominent lymphoid aggregates. TODAY'S VISIT Patient is here today for follow-up and to discuss colonoscopy results. Denies any ill effects from the prep, anesthesia or procedure itself. Patient reports that she is doing well after the procedure. She does admits that she is having more trouble with her hemorrhoids. Patient denies melena, hematochezia, unintentional weight loss or ribbon like stools. Patient reports that Senokot has been working for her and she is moving her bowels better. Patient reports occasional postprandial epigastric pain, using omeprazole and it does not feel like it is working. Colonoscopy results discussed with patient [facility] Medical History (Updated 09/03/23 @ 08:27 by Jessie Virgen [facility]) Tubular adenoma Impaired glucose tolerance COVID-19 virus infection Annual physical exam Hemorrhoid Colon cancer screening Myalgia Cervical cancer screening SOB (shortness of breath) RUQ abdominal pain Obesity (BMI 30.0-34.9) Endocervical polyp Hematuria Facial lesion Abdominal bloating Exposure to COVID-19 virus Peripheral vascular disease History of renal calculi Mixed stress and urge urinary incontinence Anemia GERD (gastroesophageal reflux disease) Insomnia Vitamin D deficiency Hypothyroid Hypercholesterolemia Surgical History Hx of colonoscopy History of tubal ligation Family History Father No problems noted. Mother Liver cancer Diabetes Hypertension Cirrhosis Paternal Aunt Breast cancer Father No problems noted. Mother Liver cancer Diabetes Hypertension Cirrhosis Paternal Aunt Breast cancer Social History Housing: House Alcohol intake: current Alcohol intake frequency: does not drink Patient Tobacco Use Status: Former Tobacco user Tobacco use type: Cigarette Years Smoked: 27 years old e-Cigarette/Vaping Use: Never Used Second Hand Smoke Exposure: No service: No Current occupational status: unemployed Cognitive needs: No Hearing needs: No Vision needs: Yes Female Reproductive History Menstrual Age of Menarche: 11 Review of Systems Const Denies weight gain and Denies weight loss ENT Reports no additional complaints, Denies dysphagia and Denies odynophagia Card Reports no additional complaints Resp Reports no additional complaints GI Reports abdominal pain (Epigastric, postprandially), Denies belching, Denies melena, Denies bloating, Denies change in bowel habits, Denies dysphagia, Denies excessive flatus, Denies dyspepsia, Reports heartburn, Denies diarrhea, Denies loose stools, Denies nausea, Denies odynophagia and Denies vomiting Musc Reports no additional complaints Neuro Reports no additional complaints Psych Reports no additional complaints Endo Reports no additional complaints Physical Exam Vital Signs: Last Vital Signs Pulse 72 09/03/23 08:03 BP 109/62 09/03/23 08:03 BMI result Body Mass Index 26.1 Const General: healthy appearing, no acute distress and well developed Nutritional Appearance: well nourished Orientation/consciousness: patient oriented x3 Resp Effort & Inspection: normal respiratory effort, able to speak in complete sentences, no tracheal deviation and symmetric chest movement Auscultation: clear to auscultation bilaterally Cardio Rate: regular rate GI Inspection: Yes normal to inspection and No distended Palpation (GI): Soft to palpation, not firm, nontender and No hepatosplenomegaly present Auscultation: normal bowel sounds General: Yes no CVA tenderness Back/Spine/Pelvis Back: no CVA tenderness Skin General skin exam: elasticity normal, turgor normal and dry skin Neuro General: patient oriented x3 Psych Appearance: grossly normal Mental Status: mental status grossly normal Assessment & Plan Assessment & Plan (1) Tubular adenoma: Code(s): D36.9 - Benign neoplasm, unspecified site Category: Medical (2) Status post colonoscopy: Code(s): Z98.890 - Other specified postprocedural states (3) Hemorrhoids without complication: Code(s): K64.9 - Unspecified hemorrhoids (4) Postprandial epigastric pain: Code(s): R10.13 - Epigastric pain Plan Colonoscopy in 3 years due to suboptimal prep and tubular adenoma. Patient will continue taking Senokot. Increase fluid intake and activity to promote better bowel motility. Sitz baths with Epsom salts to help with hemorrhoids. Proctosol cream sent to the pharmacy. Patient still has postprandial epigastric pain despite taking omeprazole. Was changed to pantoprazole. Avoid dietary triggers and late night snacking. Staying upright for minimum 3 hours after meals discussed with patient. She will return in 3 months, sooner on as needed basis. Colorectal screening in 3 years, sooner if clinically necessary. Medications: New pantoprazole take one tablet half an hour before breakfast 40 mg PO DAILY 30 tabs 2RF K21.9 - Gastro-esophageal reflux disease without esophagitis hydrocortisone 2.5% (Proctosol HC) 1 appl [place] BID-QID PRN 30 grams 2RF hemorrhoids K64.9 - Unspecified hemorrhoids Coding Level of Care Code Est Pt Level 4 (96760) Diagnoses Tubular adenoma D36.9 Status post colonoscopy Z98.890 Hemorrhoids without complication K64.9 Postprandial epigastric pain R10.13 Time Spent (min) 35 Comment 20 minutes spent with patient and additional 15 minutes spent reviewing her records
== END 2023-09-03 08:44 | disposition home or self-care (01) ==
PROVIDERS: PCP Internal Medicine; Visit Provider Nurse Practitioner Family
DX: D36.9 Benign neoplasm, unspecified site (principal); Z98.890 Other specified postprocedural states; K64.9 Unspecified hemorrhoids; R10.13 Epigastric pain
CPT/HCPCS: 99214

== ENCOUNTER → 2023-09-03 08:02 | Outpatient (BNVA) | payer OTHER, SELFPAY | PROVIDERS: PCP Internal Medicine; Visit Provider Nurse Practitioner Family | DX: D36.9 Benign neoplasm, unspecified site (principal); K64.9 Unspecified hemorrhoids; R10.13 Epigastric pain; Z98.890 Other specified postprocedural states | CPT/HCPCS: 99212 ==

== ENCOUNTER 2023-10-01 09:14 | Outpatient (AMB) | payer OTHER, SELFPAY ==
[2023-10-01 09:14] VITALS: BP 116/78; PULSE 72; O2SAT 96; BMI 26.3
--- NOTE | 2023-10-01 09:14 | MHC.PC.OV ---
Vital Signs 10/01/23 09:14 Height 5 ft 4 in Weight 153 lb 0.1 oz BMI 26.3 BP 116/78 Blood Pressure Location Lt brachial Position Sitting Pulse 72 Pulse Source Pulse Oximeter Pulse Oximetry (%) 96 Oxygen Delivery Method Room Air Intake Visit Reasons: Annual Exam Windows Phone Developer Required: No Allergies No Known Allergies [No Known Allergies*] Allergy (Verified 10/01/23 09:15) Medication List - Last Reconciled 10/01/23 by Tanya Child MD albuterol sulfate 90 mcg/actuation 2 puffs inhalation Q6H PRN cetirizine 10 mg PO DAILY PRN 90 days docusate sodium 100 mg PO BEDTIME fluoride (sodium) 1.1% (Denta 5000 Plus) appl PO fluticasone propionate 50 mcg/actuation (Flonase Allergy Relief) 2 sprays intranasal DAILY hydrocortisone 2.5% (Proctosol HC) 1 appl [place] BID-QID PRN pantoprazole 40 mg PO DAILY sennosides (Natural Senna Laxative) 17.2 mg (2 x 8.6 mg) PO BEDTIME simvastatin 5 mg PO BEDTIME Synthroid (levothyroxine) 125 mcg PO DAILY NS zolpidem 10 mg PO BEDTIME PRN Tobacco use date assessed: 06/17/23 Dental Screening Dental Screen Date: 10/01/23 Did you have a dental visit in the last 12 months?: Yes Did you have a dental problem in the last 6 months where you did not have access to dental care?: No Was dental information given to patient?: Patient has dentist HPI Annual Exam HPI Details 63-year-old overweight female with hypercholesterolemia GERD and insomnia last seen in 06/25/2023. Patient is here for physical exam. Patient is up-to-date with colonoscopy 08/25/2023 3 years mammogram 06/25/2023. dizzy, anxoius with son decline counsellor for anxiety [facility] Medical History (Updated 10/01/23 @ 09:25 by Tanya Child MD) Annual physical exam Tubular adenoma Impaired glucose tolerance COVID-19 virus infection Hemorrhoid Colon cancer screening Myalgia Cervical cancer screening SOB (shortness of breath) RUQ abdominal pain Obesity (BMI 30.0-34.9) Endocervical polyp Hematuria Facial lesion Abdominal bloating Exposure to COVID-19 virus Peripheral vascular disease History of renal calculi Mixed stress and urge urinary incontinence Anemia GERD (gastroesophageal reflux disease) Insomnia Vitamin D deficiency Hypothyroid Hypercholesterolemia Surgical History Hx of colonoscopy History of tubal ligation Family History Father No problems noted. Mother Liver cancer Diabetes Hypertension Cirrhosis Paternal Aunt Breast cancer Father No problems noted. Mother Liver cancer Diabetes Hypertension Cirrhosis Paternal Aunt Breast cancer Social History (Updated 10/01/23 @ 09:32 by Tanya Child MD) Housing: House Alcohol intake: current Alcohol intake frequency: does not drink Comment: once a week 1 glass Patient Tobacco Use Status: Former Tobacco user Tobacco use type: Cigarette Years Smoked: 27 years old e-Cigarette/Vaping Use: Never Used Second Hand Smoke Exposure: No service: No Current occupational status: unemployed Cognitive needs: No Hearing needs: No Vision needs: Yes Female Reproductive History Menstrual Age of Menarche: 11 Questionnaire PHQ-9 Over the last 2 weeks, how often have you been bothered by any of the following problems? 1. Little interest or pleasure in doing things: not at all 2. Feeling down, depressed, or hopeless: several days 3. Trouble falling or staying asleep, or sleeping too much: not at all 4. Feeling tired or having little energy: not at all 5. Poor appetite or overeating: not at all 6. Feeling bad about yourself - or that you are a failure or have let yourself or your family down: not at all 7. Trouble concentrating on things, such as reading the newspaper or watching television: not at all 8. Moving or speaking so slowly that other people could have noticed. Or the opposite - being so fidgety or restless that you have been moving around a lot more than usual: not at all 9. Thoughts that you would be better off or of hurting yourself in some way: not at all Total score: 1 Depression Screening Interpretation: Negative Depression Screening Done: Yes 94900 - PHQ-9 Billing: Yes Source: Developed by Drs. Abdiel Solomon, Beryl Martin, Riki Mazariegos and colleagues, with an educational lana from [employer]. Thrive Questionnaire Date Thrive assessed: 06/17/23 AUDIT C Alcohol Use Questionnaire (AUDIT-C) 1. How often do you have a drink containing alcohol?: Monthly or less 2. How many drinks containing alcohol do you have on a typical day when you are drinking?: 1 or 2 3. How often do you have six or more drinks on one occasion?: Never Total Score: 1 JENNIE-7 AMB Questionnaire JENNIE-7 Date JENNIE - 7 assessed: 06/17/23 Feeling nervous, anxious, or on edge: 0 = Not at all Not being able to stop or control worryin = Not at all Worrying too much about different things: 0 = Not at all Trouble relaxin = Not at all Being so restless that it is hard to sit still: 0 = Not at all Becoming easily annoyed or irritable: 0 = Not at all Feeling afraid as if something awful might happen: 0 = Not at all Total JENNIE-7 score (0-4 normal; 5-9 mild; 10-14 moderate; 15-21 severe): 0 Source: Developed by Drs. Abdiel Solomon, Beryl Martin, Riki Mazariegos and colleagues, with an educational lana from [employer]. JENNIE-7 Assessment Billing JENNIE-7 Assessment Tool: JENNIE-7 Assessment 53035 Review of Systems Const Denies poor appetite and Denies weakness Eyes Denies no additional complaints ENT Reports Normal hearing present, Denies dizziness, Denies nasal congestion, Denies tinnitus and Denies sore throat Card Denies chest pain, Denies syncope, Denies rapid heart rate and Denies dyspnea Resp Denies cough and Denies dyspnea GI Denies change in stool character, Reports constipation, Denies diarrhea, Denies nausea and Denies vomiting Denies urinary frequency, Denies difficulty voiding and Denies dysuria Neuro Reports Normal hearing present, Denies confusion, Denies dizziness, Denies syncope and Denies weakness Psych Denies confusion Physical exam (Primary Care) Vital Signs: Last Vital Signs Pulse 72 10/01/23 09:14 BP 116/78 10/01/23 09:14 Pulse Ox 96 10/01/23 09:14 Oxygen Delivery Method Room Air 10/01/23 09:14 BMI result Body Mass Index 26.3 Tobacco/Smoking Status: Tobacco use Status Tobacco use date assessed 06/17/23 10/01/23 09:15 Patient Tobacco Use Status Former Tobacco user 10/01/23 09:15 Tobacco use type Cigarette 10/01/23 09:15 e-Cigarette/Vaping Use Never Used 10/01/23 09:15 PHQ-9: PHQ-9 Score PHQ-9: Total score 4 10/01/23 09:15 Depression Screening Interpretation: Negative Thrive Assessment: Date of Thrive Assessment Date Thrive assessed 06/17/23 10/01/23 09:15 Const General: No confusion Orientation/consciousness: No confusion HENMT Head: Yes normocephalic Ears: external ears normal and TM's normal bilaterally Face and sinus: Yes normal facial exam Mouth: moist mucous membranes Throat: Yes tonsils normal Eyes Conjunctivae: conjunctivae normal Pupils: Equal, round and reactive pupils present and Pupil accommodation reflex normal Direct Ophthalmoscopy: normal light reflex Neck Neck: No lymphadenopathy Thyroid: Thyroid normal Chest Chest palpation & inspection: normal inspection of the chest Resp Effort & Inspection: normal respiratory effort and no audible wheezes Auscultation: clear to auscultation bilaterally, no crackles, no wheezes and lung sounds not diminished Cardio Rate: regular rate Rhythm: regular rhythm Peripheral pulses: radial pulses present and dorsalis pedis present GI Palpation (GI): no masses Auscultation: normal bowel sounds and normoactive bowel sounds Rectal Exam - Female: deferred Skin General skin exam: no rashes or lesions noted Rashes: no rashes Neuro General: No confusion Cranial nerves: Yes Equal, round and reactive pupils present and Yes Normal hearing present Cognition (Neuro): normal cognition Gait exam (Neuro): Normal gait present Motor exam (neuro): 5/5 motor strength present throughout Deep tendon reflexes (DTR's): Right brachioradialis reflex intensity grade: 2+, Left brachioradialis reflex intensity grade: 2+, Right patellar reflex intensity grade: 2+ and Left patellar reflex intensity grade: 2+ Extrem General: No edema Assessment and Plan Assessment & Plan (1) Annual physical exam: Code(s): Z00.00 - Encounter for general adult medical examination without abnormal findings Plan: Patient is advised to eat healthy, keep well hydrated, keep active and have adequate sleep. (2) Hypercholesterolemia: Code(s): E78.00 - Pure hypercholesterolemia, unspecified Plan: Avoid fried foods, chicken skin, eggs, butter margarine, pastries and meat. Be it pork or beef they have a lot of cholesterol LDL goal of less than 130 and triglyceride of less than 150 on simvastatin 5 mg once a day (3) GERD (gastroesophageal reflux disease): Code(s): K21.9 - Gastro-esophageal reflux disease without esophagitis Qualifiers: Esophagitis presence: without esophagitis Qualified Code(s): K21.9 - Gastro-esophageal reflux disease without esophagitis Plan: Avoid the foods that causes that usually spicy foods, tomato products, juices, coffee, soda and foods that your sensitive to. After eating do not lie down, allow 3-4 hours before in lie down. And keep the head of bed above 30 degrees to avoid the acid from going up. (4) Hypothyroid: Code(s): E03.9 - Hypothyroidism, unspecified Qualifiers: Hypothyroidism type: acquired Qualified Code(s): E03.9 - Hypothyroidism, unspecified Plan: Continue with thyroid medication (5) IBS (irritable bowel syndrome): Code(s): K58.9 - Irritable bowel syndrome without diarrhea Qualifiers: Irritable bowel syndrome type: without diarrhea Qualified Code(s): K58.9 - Irritable bowel syndrome without diarrhea Plan: 1. Diet need to have a high fiber diet less of meat 2. Increase oral fluids 3. Exercise (6) Tubular adenoma: Comment: 08/2023 Code(s): D36.9 - Benign neoplasm, unspecified site Plan: Advise retesting in 3 years (7) Generalized anxiety disorder: Code(s): F41.1 - Generalized anxiety disorder Plan: Stable Orders: Orders Complete Blood Count Auto Diff 6 Months E78.00 - Pure hypercholesterolemia, unspecified Comprehensive Met. Panel 6 Months E78.00 - Pure hypercholesterolemia, unspecified Thyroid Stimulating Hormone 6 Months E78.00 - Pure hypercholesterolemia, unspecified Vitamin B12 and Folate 6 Months E78.00 - Pure hypercholesterolemia, unspecified Lipid Panel 6 Months E78.00 - Pure hypercholesterolemia, unspecified Free T4 (Free Thyroxine) 6 Months E78.00 - Pure hypercholesterolemia, unspecified Vitamin D 25-OH Total 6 Months E78.00 - Pure hypercholesterolemia, unspecified Thyroid Stimulating Hormone Today E03.9 - Hypothyroidism, unspecified Free T4 (Free Thyroxine) Today E03.9 - Hypothyroidism, unspecified Complete Blood Count Auto Diff Today E03.9 - Hypothyroidism, unspecified Comprehensive Met. Panel Today E03.9 - Hypothyroidism, unspecified Coding Level of Care Code Est Pt Prev Care 40-64y(39043) Diagnoses Annual physical exam Z00.00 Hypercholesterolemia E78.00 Gastroesophageal reflux disease without esophagitis K21.9 Esophagitis presence: without esophagitis Acquired hypothyroidism E03.9 Hypothyroidism type: acquired Irritable bowel syndrome without diarrhea K58.9 Irritable bowel syndrome type: without diarrhea Tubular adenoma D36.9 Generalized anxiety disorder F41.1 Additional Codes JENNIE-7 Assessment Billing - JENNIE-7 Assessment Tool: JENNIE-7 Assessment [id number] ([id number])
== END 2023-10-01 09:53 | disposition home or self-care (01) ==
PROVIDERS: PCP Internal Medicine; Visit Provider Internal Medicine
DX: Z00.00 Encounter for general adult medical examination without abnormal findings (principal); E78.00 Pure hypercholesterolemia, unspecified; K21.9 Gastro-esophageal reflux disease without esophagitis; E03.9 Hypothyroidism, unspecified; K58.9 Irritable bowel syndrome, unspecified; D36.9 Benign neoplasm, unspecified site; F41.1 Generalized anxiety disorder
CPT/HCPCS: 99396

== ENCOUNTER 2023-10-01 09:59 | Outpatient (REF) | payer OTHER, SELFPAY ==
[2023-10-01 10:42] LABS: MANUAL DIFF FLAG NO
[2023-10-01 10:45] LABS: Basophils Percent Auto 0.7 % (0-2); Eosinophils Absolute Auto 0.1 X10*3/uL (0.0-0.4); Eosinophils Percent Auto 2.4 % (0-4); Hematocrit 39.2 % (37.0-47.0); Hemoglobin 13.9 g/dl (12.0-16.0); Imm Gran Abs Auto 0.01 X10*3/uL (0.00-0.03); Imm Gran Pct Auto 0.2 % (0.0-0.4); Lymphocytes Percent Auto 35.6 % (20-40); Mean Corpuscular HGB Conc 35.5 g/dl (31.0-35.0); Mean Corpuscular Hemoglobin 31.7 pg (27.0-33.0); Mean Corpuscular Volume 89.5 fL (80.0-98.0); Monocytes Absolute Auto 0.5 X10*3/uL (0.1-1.2); Monocytes Percent Auto 8.9 % (2-11); Neutrophils Absolute Auto 2.9 x10*3/uL (2.0-8.3); Neutrophils Percent Auto 52.2 % (45-73); Platelet Count 308 X10*3/uL (160-400); Red Blood Count 4.38 X10*6/uL (4.20-5.50); Red Cell Distribution Width 11.9 % (11.0-16.0); White Blood Count 5.5 X10*3/uL (4.8-10.8)
[2023-10-01 11:01] LABS: Alanine Aminotransferase 16 U/L (0-31); Albumin Level 4.6 g/dL (3.5-5.0); Alkaline Phosphatase 56 U/L (39-117); Anion Gap 11 (12-20); Aspartate Amino Transferase 21 U/L (5-31); Bilirubin Total 0.6 mg/dL (0.0-1.0); Blood Urea Nitrogen 12 mg/dL (9-16); Calcium 9.9 mg/dL (8.4-10.2); Carbon Dioxide 31 mmol/L (22-29); Chloride 102 mmol/L (96-108); Estimated Glomerular Filt Rate > 60; Glucose Random 89 mg/dL (60-115); Potassium 3.8 mmol/L (3.3-5.1); Sodium 140 mmol/L (135-145); Total Protein 8.4 g/dL (6.5-8.0)
[2023-10-01 11:17] LABS: Free T4 (Free Thyroxine) 1.15 ng/dL (0.71-1.85)
== END 2023-10-01 10:00 | disposition home or self-care (01) ==
LOC: HO.10HDL 09:59
PROVIDERS: Visit Provider Internal Medicine
DX: E03.9 Hypothyroidism, unspecified (principal)
CPT/HCPCS: 36415; 80053; 84439; 84443; 85025

== ENCOUNTER 2023-12-22 08:44 | Outpatient (AMB) | payer OTHER, SELFPAY ==
--- NOTE | 2023-12-22 08:47 | MHC.OFFVIS ---
Vital Signs 12/22/23 08:49 Height 5 ft 4 in Weight 159 lb 2.78 oz BMI 27.3 BP 116/74 Blood Pressure Location Rt brachial Position Sitting Pulse 74 Pulse Source Pulse Oximeter Pulse Oximetry (%) 96 Oxygen Delivery Method Room Air Intake Visit Reasons: GERD and constipation Intake Note: Xena presents in office today for a scheduled FUV. Pt has been receiving ongoing care for GERD and constipation concerns. Pt reports that they have been doing better since their last visit. Pt denies any new concerns or sx at this time. Pt states that their medications have been performing well and they do not require any additional interventions at this time. Pt denies any need for refill at this time. Body Piercer Required: No Allergies No Known Allergies [No Known Allergies*] Allergy (Verified 12/22/23 08:48) HPI HPI GERD and constipation: Details: LAST VISIT Tubular adenoma Status post colonoscopy Hemorrhoids without complication Postprandial epigastric pain Plan Colonoscopy in 3 years due to suboptimal prep and tubular adenoma. Patient will continue taking Senokot. Increase fluid intake and activity to promote better bowel motility. Sitz baths with Epsom salts to help with hemorrhoids. Proctosol cream sent to the pharmacy. Patient still has postprandial epigastric pain despite taking omeprazole. Was changed to pantoprazole. Avoid dietary triggers and late night snacking. Staying upright for minimum 3 hours after meals discussed with patient. She will return in 3 months, sooner on as needed basis. Colorectal screening in 3 years, sooner if clinically necessary. Medications New pantoprazole take one tablet half an hour before breakfast 40 mg PO DAILY 30 tabs 2RF K21.9 hydrocortisone 2.5% (Proctosol HC) 1 appl [place] BID-QID PRN 30 grams 2RF hemorrhoids K64.9 TODAY'S VISIT Patient is here today for follow-up. Patient reports that she is doing much better now after starting pantoprazole. Patient is also avoiding dietary triggers. Patient takes pantoprazole every morning. Denies any dyspepsia, dysphagia or odynophagia. Patient reports that she is moving her bowels better now. Only taking Senokot on as needed basis. Approximately 2 to 3 times a week. Patient denies melena, hematochezia. Denies any abdominal pain or discomfort. Patient denies any symptoms today [facility] Medical History Annual physical exam Tubular adenoma Impaired glucose tolerance COVID-19 virus infection Hemorrhoid Colon cancer screening Myalgia Cervical cancer screening SOB (shortness of breath) RUQ abdominal pain Obesity (BMI 30.0-34.9) Endocervical polyp Hematuria Facial lesion Abdominal bloating Exposure to COVID-19 virus Peripheral vascular disease History of renal calculi Mixed stress and urge urinary incontinence Anemia GERD (gastroesophageal reflux disease) Insomnia Vitamin D deficiency Hypothyroid Hypercholesterolemia Surgical History Hx of colonoscopy History of tubal ligation Family History Father No problems noted. Mother Liver cancer Diabetes Hypertension Cirrhosis Paternal Aunt Breast cancer Father No problems noted. Mother Liver cancer Diabetes Hypertension Cirrhosis Paternal Aunt Breast cancer Social History Housing: House Alcohol intake: current Alcohol intake frequency: does not drink Comment: once a week 1 glass Patient Tobacco Use Status: Former Tobacco user Tobacco use type: Cigarette Years Smoked: 27 years old e-Cigarette/Vaping Use: Never Used Second Hand Smoke Exposure: No service: No Current occupational status: unemployed Cognitive needs: No Hearing needs: No Vision needs: Yes Female Reproductive History Menstrual Age of Menarche: 11 Review of Systems Const Denies weight gain and Denies weight loss ENT Reports no additional complaints, Denies dysphagia and Denies odynophagia Card Reports no additional complaints Resp Reports no additional complaints GI Denies belching, Denies melena, Denies bloating, Denies change in bowel habits, Reports constipation (occasional), Denies dysphagia, Denies excessive flatus, Denies dyspepsia, Reports heartburn (improved), Denies diarrhea, Denies loose stools, Denies nausea, Denies odynophagia and Denies vomiting Musc Reports no additional complaints Neuro Reports no additional complaints Psych Reports no additional complaints Endo Reports no additional complaints Physical Exam Vital Signs: Last Vital Signs Pulse 74 12/22/23 08:49 BP 116/74 12/22/23 08:49 Pulse Ox 96 12/22/23 08:49 Oxygen Delivery Method Room Air 12/22/23 08:49 BMI result Body Mass Index 27.3 Const General: healthy appearing, no acute distress and well developed Nutritional Appearance: well nourished Orientation/consciousness: patient oriented x3 Resp Effort & Inspection: normal respiratory effort, able to speak in complete sentences, no tracheal deviation and symmetric chest movement Auscultation: clear to auscultation bilaterally Cardio Rate: regular rate GI Inspection: Yes normal to inspection and No distended Palpation (GI): Soft to palpation, not firm, nontender and No hepatosplenomegaly present Auscultation: normal bowel sounds General: Yes no CVA tenderness Back/Spine/Pelvis Back: no CVA tenderness Skin General skin exam: elasticity normal, turgor normal and dry skin Neuro General: patient oriented x3 Psych Appearance: grossly normal Mental Status: mental status grossly normal Assessment & Plan Assessment & Plan (1) GERD (gastroesophageal reflux disease): Code(s): K21.9 - Gastro-esophageal reflux disease without esophagitis Category: Medical Qualifiers: Esophagitis presence: without esophagitis Qualified Code(s): K21.9 - Gastro-esophageal reflux disease without esophagitis (2) Status post colonoscopy: Code(s): Z98.890 - Other specified postprocedural states (3) Postprandial epigastric pain: Code(s): R10.13 - Epigastric pain (4) Constipation: Code(s): K59.00 - Constipation, unspecified Qualifiers: Constipation type: slow transit constipation Qualified Code(s): K59.01 - Slow transit constipation Plan Continue avoiding dietary triggers. Patient will continue taking pantoprazole daily. Avoid late night snacking. Staying upright for minimum 3 hours after meals discussed with patient. Patient will increase fluid intake and activity to promote better bowel motility. Senokot on as needed. Follow-up in 6 months, sooner on as needed basis. She is agreeable to this plan and verbalizes understanding of instructions she was given the opportunity to ask questions and all questions answered. Thank you for allowing me to participate in her care Coding Level of Care Code Est Pt Level 3 (80754) Diagnoses Gastroesophageal reflux disease without esophagitis K21.9 Esophagitis presence: without esophagitis Status post colonoscopy Z98.890 Postprandial epigastric pain R10.13 Slow transit constipation K59.01 Constipation type: slow transit constipation Time Spent (min) 25 Comment 15 minutes spent with patient and additional 10 minutes spent reviewing her records
[2023-12-22 08:49] VITALS: BP 116/74; PULSE 74; O2SAT 96; BMI 27.3
== END 2023-12-22 09:01 | disposition home or self-care (01) ==
PROVIDERS: PCP Internal Medicine; Visit Provider Nurse Practitioner Family
DX: K21.9 Gastro-esophageal reflux disease without esophagitis (principal); Z98.890 Other specified postprocedural states; R10.13 Epigastric pain; K59.01 Slow transit constipation
CPT/HCPCS: 99213

== ENCOUNTER → 2023-12-22 08:44 | Outpatient (BNVA) | payer OTHER, SELFPAY | PROVIDERS: PCP Internal Medicine; Visit Provider Nurse Practitioner Family | DX: K21.9 Gastro-esophageal reflux disease without esophagitis (principal); K64.9 Unspecified hemorrhoids; R10.13 Epigastric pain; K59.01 Slow transit constipation; Z98.890 Other specified postprocedural states | CPT/HCPCS: 99212 ==

== ENCOUNTER 2024-02-10 10:02 | Outpatient (REF) | payer OTHER, SELFPAY ==
[2024-02-10 14:28] LABS: Influenza A PCR NEGATIVE (Negative); Influenza B PCR NEGATIVE (Negative); Resp Syncy Virus RNA Qual PCR NEGATIVE (Negative); SARS COV2 PCR INHOUSE NEGATIVE (Negative)
== END 2024-02-10 10:03 | disposition home or self-care (01) ==
LOC: HO.LNP 10:02
PROVIDERS: PCP Internal Medicine; Visit Provider Physician Assistant
DX: J06.9 Acute upper respiratory infection, unspecified (principal); H66.002 Acute suppurative otitis media without spontaneous rupture of ear drum, left ear
CPT/HCPCS: 0241U; 99212

== ENCOUNTER 2024-02-10 10:02 | Outpatient (AMB) | payer OTHER, SELFPAY ==
--- NOTE | 2024-02-10 10:19 | MHC.OFFWIV ---
Intake Vital Signs 02/10/24 10:21 Height 5 ft 4 in Weight 158 lb BMI 27.1 BP 130/78 Blood Pressure Location Rt brachial Position Sitting Pulse 69 Pulse Source Pulse Oximeter Temp 97.8 F Temp Source Oral Pulse Oximetry (%) 98 Oxygen Delivery Method Room Air Intake Visit Reasons: EP headaches, ? sinus infection, high BP, dizzines Intake Note: Patient here for headache, sinus pressure and elevated BP which has been going on for about 1 week. Patient Tobacco Use Status: Former Tobacco user Allergies No Known Allergies [No Known Allergies*] Allergy (Verified 02/10/24 10:22) Do you need a note to return to daycare/school/sports/work: No HPI HPI Comments History of Present Illness Details Patient is a 63-year-old female complaining of 7 days of headache, head congestion, sinus pain on the left side, ear pain bilaterally, dizziness and shortness of breath. She denies any fevers, cough, wheezing or chest pain. She states she is able to eat and drink normally. She tells me she did not test for COVID at home. She tells me her grandson's are also sick at home. She has been taking Flonase and cetirizine daily. She tells me she does have a history of asthma and has an albuterol inhaler at home but has not used it. Patient is concerned because she is flying to [place] in 2 days and does not want to have an issue while she is flying. [facility] Medical History Annual physical exam Tubular adenoma Impaired glucose tolerance COVID-19 virus infection Hemorrhoid Colon cancer screening Myalgia Cervical cancer screening SOB (shortness of breath) RUQ abdominal pain Obesity (BMI 30.0-34.9) Endocervical polyp Hematuria Facial lesion Abdominal bloating Exposure to COVID-19 virus Peripheral vascular disease History of renal calculi Mixed stress and urge urinary incontinence Anemia GERD (gastroesophageal reflux disease) Insomnia Vitamin D deficiency Hypothyroid Hypercholesterolemia Surgical History Hx of colonoscopy History of tubal ligation Family History Father No problems noted. Mother Liver cancer Diabetes Hypertension Cirrhosis Paternal Aunt Breast cancer Father No problems noted. Mother Liver cancer Diabetes Hypertension Cirrhosis Paternal Aunt Breast cancer Social History Housing: House Alcohol intake: current Alcohol intake frequency: does not drink Comment: once a week 1 glass Patient Tobacco Use Status: Former Tobacco user Tobacco use type: Cigarette Years Smoked: 27 years old e-Cigarette/Vaping Use: Never Used Second Hand Smoke Exposure: No service: No Current occupational status: unemployed Cognitive needs: No Hearing needs: No Vision needs: Yes Female Reproductive History Menstrual Age of Menarche: 11 Review of Systems Const All systems reviewed & are unremarkable except as noted in HPI and below Physical Exam Vital Signs: Last Vital Signs Temp 97.8 F 02/10/24 10:21 Pulse 69 02/10/24 10:21 BP 130/78 02/10/24 10:21 Pulse Ox 98 02/10/24 10:21 Oxygen Delivery Method Room Air 02/10/24 10:21 BMI result Body Mass Index 27.1 Const General: cooperative, healthy appearing, comfortable and no acute distress Orientation/consciousness: patient oriented x3 Limitations: no limitations HEENT Head: Yes normal to inspection Ears: hearing grossly normal bilaterally, external ears normal, TM normal on the left and TM abnormal wth effusion and with loss of landmarks General nose exam: Normal external nose present, Normal nares present and No nasal discharge present Face and sinus: Yes normal facial exam and Yes sinus tenderness (Left-sided maxillary) Mouth: Normal oral and palatal mucosa present and moist mucous membranes Throat: Yes tonsils normal, Yes uvula midline and Yes posterior oropharynx abnormal (Erythema) Eyes General: appearance normal, both eyes and all related structures Neck Neck: Yes normal visual inspection Resp Effort & Inspection: normal respiratory effort, able to speak in complete sentences, Actively coughing, no respiratory distress, not tachypneic, no tripod positioning and no use of accessory muscles Auscultation: clear to auscultation bilaterally Cardio Rate: regular rate Rhythm: regular rhythm Heart sounds: normal S1 and S2 Skin General skin exam: no rashes or lesions noted Neuro General: patient oriented x3 Extrem General: Yes normal to inspection and Yes no clubbing, cyanosis or edema Assessment & Plan Assessment & Plan (1) URI (upper respiratory infection): Code(s): J06.9 - Acute upper respiratory infection, unspecified Plan: Likely a sinusitis, vital signs are stable, patient well-appearing, lung sounds are clear, no indication for a chest x-ray. Did test for flu COVID and RSV. Educated patient on the proper use of Flonase continuing to use this daily as well as her cetirizine. Educated patient on using a Neti pot with distilled water and other [id number] medications to treat her symptoms. (2) Otitis media: Code(s): H66.90 - Otitis media, unspecified, unspecified ear Qualifiers: Otitis media type: suppurative Chronicity: acute Laterality: left Recurrence: non-recurrent Spontaneous tympanic membrane rupture: without spontaneous rupture Qualified Code(s): H66.002 - Acute suppurative otitis media without spontaneous rupture of ear drum, left ear Plan: Sent amoxicillin to pharmacy, likely contributing to her dizziness. Plan See above Orders: Orders SARS-CoV2/FLU/RSV Today J06.9 - Acute upper respiratory infection, unspecified Medications: New amoxicillin 875 mg PO Q12H 10 tabs 0RF Coding Level of Care Code Est Pt Level 4 (87704) Diagnoses URI (upper respiratory infection) J06.9 Non-recurrent acute suppurative otitis media of left ear without spontaneous rupture of tympanic membrane H66.002 Otitis media type: suppurative Chronicity: acute Laterality: left Recurrence: non-recurrent Spontaneous tympanic membrane rupture: without spontaneous rupture
[2024-02-10 10:21] VITALS: BP 130/78; PULSE 69; TEMP 36.6; O2SAT 98; BMI 27.1
== END 2024-02-10 10:57 | disposition home or self-care (01) ==
PROVIDERS: PCP Internal Medicine; Visit Provider Physician Assistant
DX: J06.9 Acute upper respiratory infection, unspecified (principal); H66.002 Acute suppurative otitis media without spontaneous rupture of ear drum, left ear

== ENCOUNTER 2024-03-30 10:04 | Outpatient (REF) | payer OTHER, SELFPAY ==
[2024-03-30 11:33] LABS: MANUAL DIFF FLAG NO
[2024-03-30 11:36] LABS: Basophils Percent Auto 0.6 % (0-2); Eosinophils Absolute Auto 0.1 X10*3/uL (0.0-0.4); Eosinophils Percent Auto 1.9 % (0-4); Hemoglobin 13.8 g/dl (12.0-16.0); Imm Gran Abs Auto 0.01 X10*3/uL (0.00-0.03); Imm Gran Pct Auto 0.2 % (0.0-0.4); Lymphocytes Absolute Auto 1.7 X10*3/uL (1.2-4.9); Mean Corpuscular HGB Conc 35.4 g/dl (31.0-35.0); Mean Corpuscular Hemoglobin 31.9 pg (27.0-33.0); Mean Corpuscular Volume 90.1 fL (80.0-98.0); Mean Platelet Volume 9.9 fL (9.4-12.3); Monocytes Absolute Auto 0.4 X10*3/uL (0.1-1.2); Monocytes Percent Auto 7.6 % (2-11); Neutrophils Absolute Auto 2.6 x10*3/uL (2.0-8.3); Neutrophils Percent Auto 53.7 % (45-73); Platelet Count 301 X10*3/uL (160-400); Red Blood Count 4.33 X10*6/uL (4.20-5.50); Red Cell Distribution Width 12.1 % (11.0-16.0); White Blood Count 4.8 X10*3/uL (4.8-10.8)
[2024-03-30 12:04] LABS: Alanine Aminotransferase 28 U/L (0-31); Albumin Level 4.6 g/dL (3.5-5.0); Alkaline Phosphatase 59 U/L (39-117); Anion Gap 12 (12-20); Aspartate Amino Transferase 31 U/L (5-31); Bilirubin Total 0.6 mg/dL (0.0-1.0); Blood Urea Nitrogen 9 mg/dL (9-16); Calcium 9.8 mg/dL (8.4-10.2); Carbon Dioxide 30 mmol/L (22-29); Chloride 100 mmol/L (96-108); Cholesterol 223 mg/dL (<200); Estimated Glomerular Filt Rate > 60; Glucose Random 99 mg/dL (60-115); HDL Cholesterol 50 mg/dL (>40); LDL Cholesterol Calculated 134 mg/dL (<100); Potassium 3.8 mmol/L (3.3-5.1); Sodium 138 mmol/L (135-145); Total Protein 8.3 g/dL (6.5-8.0); Triglycerides 197 mg/dL (<150)
[2024-03-30 12:29] LABS: Folate 9.8 ng/mL (> or = 4.0); Vitamin B12 535 pg/mL (200-900)
[2024-03-30 12:51] LABS: Free T4 (Free Thyroxine) 1.22 ng/dL (0.71-1.85); Thyroid Stimulating Hormone 2.68 uIU/mL (0.32-4.0); Vitamin D 25-OH Total 28.9 ng/mL (>30)
== END 2024-03-30 10:05 | disposition home or self-care (01) ==
LOC: HO.10HDL 10:04
PROVIDERS: Visit Provider Internal Medicine
DX: E78.00 Pure hypercholesterolemia, unspecified (principal)
CPT/HCPCS: 36415; 80053; 80061; 82306; 82607; 82746; 84439; 84443; 85025

== ENCOUNTER 2024-04-02 08:43 | Outpatient (AMB) | payer OTHER, SELFPAY ==
[2024-04-02 08:50] VITALS: BP 116/74; PULSE 70; O2SAT 99; BMI 26.9
--- NOTE | 2024-04-02 08:50 | MHC.PC.OV ---
Vital Signs 04/02/24 08:50 Height 5 ft 4 in Weight 156 lb 8 oz BMI 26.9 BP 116/74 Blood Pressure Location Lt brachial Position Sitting Pulse 70 Pulse Source Pulse Oximeter Pulse Oximetry (%) 99 Oxygen Delivery Method Room Air Intake Visit Reasons: hypothyroid Research Associate Quality Control Qc Required: No Accompanied by: Self / Same As Patient Allergies No Known Allergies [No Known Allergies*] Allergy (Verified 04/02/24 08:56) Tobacco use date assessed: 06/17/23 Dental Screening Dental Screen Date: 10/01/23 HPI hypothyroid HPI Details The patient is a 63-year-old female presenting with concerns of elevated cholesterol and symptoms consistent with sinusitis. The cholesterol levels have risen, with the most recent total cholesterol recorded at 223 mg/dL and LDL at 134 mg/dL, both above target levels. The patient reports adherence to prescribed simvastatin; previous years' readings were consistently below 200 mg/dL for total cholesterol and below 130 mg/dL for LDL. The patient denies any changes in medication or lifestyle that might account for the elevated levels. Additionally, the patient has been experiencing symptoms consistent with sinusitis for approximately three to four weeks, including nasal congestion, ear pain, sore throat, and chills, but denies cough or fever. She recalls seeing an urgent care center in February for the sinus issues and was prescribed amoxicillin, which did not lead to improvement. Currently, she continues to manage symptoms with Flonase nasal spray. The patient's sinus symptoms are possibly exacerbated by allergies, and she reports extreme congestion but no dyspnea. Her family, including a grandchild with recent RSV, may contribute to the spread of illness within her household. A mild vitamin D deficiency was noted in recent lab results; other blood parameters, including hemoglobin, white blood cell count, and renal function, are within normal limits. [facility] Medical History Annual physical exam Tubular adenoma Impaired glucose tolerance COVID-19 virus infection Hemorrhoid Colon cancer screening Myalgia Cervical cancer screening SOB (shortness of breath) RUQ abdominal pain Obesity (BMI 30.0-34.9) Endocervical polyp Hematuria Facial lesion Abdominal bloating Exposure to COVID-19 virus Peripheral vascular disease History of renal calculi Mixed stress and urge urinary incontinence Anemia GERD (gastroesophageal reflux disease) Insomnia Vitamin D deficiency Hypothyroid Hypercholesterolemia Surgical History Hx of colonoscopy History of tubal ligation Family History Father No problems noted. Mother Liver cancer Diabetes Hypertension Cirrhosis Paternal Aunt Breast cancer Father No problems noted. Mother Liver cancer Diabetes Hypertension Cirrhosis Paternal Aunt Breast cancer Social History Housing: House Alcohol intake: current Alcohol intake frequency: does not drink Comment: once a week 1 glass Patient Tobacco Use Status: Former Tobacco user Tobacco use type: Cigarette Years Smoked: 27 years old e-Cigarette/Vaping Use: Never Used Second Hand Smoke Exposure: No service: No Current occupational status: unemployed Cognitive needs: No Hearing needs: No Vision needs: Yes Female Reproductive History Menstrual Age of Menarche: 11 Questionnaire Thrive Questionnaire Date Thrive assessed: 06/17/23 JENNIE-7 AMB Questionnaire JENNIE-7 Date JENNIE - 7 assessed: 06/17/23 Source: Developed by Drs. Abdiel Solomon, Beryl Martin, Riki Mazariegos and colleagues, with an educational lana from [employer]. Physical exam (Primary Care) Vital Signs: Last Vital Signs Pulse 70 04/02/24 08:50 BP 116/74 04/02/24 08:50 Pulse Ox 99 04/02/24 08:50 Oxygen Delivery Method Room Air 04/02/24 08:50 BMI result Body Mass Index 26.9 Tobacco/Smoking Status: Tobacco use Status Tobacco use date assessed 06/17/23 04/02/24 08:51 Patient Tobacco Use Status Former Tobacco user 04/02/24 08:51 Tobacco use type Cigarette 04/02/24 08:51 e-Cigarette/Vaping Use Never Used 04/02/24 08:51 Thrive Assessment: Date of Thrive Assessment Date Thrive assessed 06/17/23 04/02/24 08:51 Const General: alert; No acute distress Eyes Conjunctivae: conjunctivae normal Resp Auscultation: clear to auscultation bilaterally Cardio Rate: regular rate Rhythm: regular rhythm GI Inspection: Yes normal to inspection Extrem General: Yes normal to inspection and No edema Office Procedures Flu Questionnaire Does the patient have a severe egg allergy?: No Immunizations Fluarix Triv [id number] (PF) 45 mcg (15 mcg x 3)/0.5 mL IM syringe Performing Provider: Tanya Child MD [facility] Documented (not given) by: KAVYA Diaz on 04/02/24 08:54 Reason Not Given: Patient Refused Coding Level of Care Code Est Pt Level 4 (52088) Diagnoses Gastroesophageal reflux disease without esophagitis K21.9 Esophagitis presence: without esophagitis Hypercholesterolemia E78.00 Acquired hypothyroidism E03.9 Hypothyroidism type: acquired Generalized anxiety disorder F41.1 Cough R05.9 Sinus congestion R09.81 Assessment & Plan Assessment & Plan (1) GERD (gastroesophageal reflux disease): Code(s): K21.9 - Gastro-esophageal reflux disease without esophagitis Category: Medical Qualifiers: Esophagitis presence: without esophagitis Qualified Code(s): K21.9 - Gastro-esophageal reflux disease without esophagitis Plan: Avoid the foods that causes that usually spicy foods, tomato products, juices, coffee, soda and foods that your sensitive to. After eating do not lie down, allow 3-4 hours before in lie down. And keep the head of bed above 30 degrees to avoid the acid from going up. (2) Hypercholesterolemia: Code(s): E78.00 - Pure hypercholesterolemia, unspecified Category: Medical Plan: Avoid fried foods, chicken skin, eggs, butter margarine, pastries and meat. Be it pork or beef they have a lot of cholesterol patient is presently on simvastatin 5 mg and discussed with the patient being change with cholesterol numbers. (3) Hypothyroid: Code(s): E03.9 - Hypothyroidism, unspecified Category: Medical Qualifiers: Hypothyroidism type: acquired Qualified Code(s): E03.9 - Hypothyroidism, unspecified Plan: Continue with thyroid medication (4) Generalized anxiety disorder: Code(s): F41.1 - Generalized anxiety disorder Category: Medical Plan: Stable (5) Cough: Code(s): R05.9 - Cough, unspecified Category: Medical Plan: ordered chest xray due to 4 weeks of cough (6) Sinus congestion: Code(s): R09.81 - Nasal congestion Category: Medical Plan: advised to use the sinus rinse first and nasal spray Plan - For hypercholesterolemia, we will recheck lipid levels in three months to determine whether the elevation persists. Continues with current statin therapy without adjustment. - Sinusitis is to be managed conservatively with the continued use of Flonase nasal spray and nasal saline irrigation. A prescription for Zithromax azithromycin) will be filled but not initiated unless symptoms suggest a bacterial infection. - Chest X-ray will be conducted to investigate persistent respiratory symptoms. - For vitamin D deficiency, recommendations are pending further evaluation and potential supplementation. - Encourage the patient to maintain a healthy diet and avoid dietary extremes that may contribute to elevated cholesterol for cholesterol management. - Comprehensive advice for managing familial exposure and sinusitis symptoms delivered, including non-medicinal measures for sinus pressure relief. Orders: Orders Lipid Panel 3 Months E78.00 - Pure hypercholesterolemia, unspecified Comprehensive Met. Panel 3 Months E78.00 - Pure hypercholesterolemia, unspecified Influenza [id number] Immunization Today Z23 - Encounter for immunization XR chest 2V Today R05.9 - Cough, unspecified Medications: New azithromycin (Zithromax) For 250 mg dose pack: take 500 mg today (day 1), then 250 mg for 4 days (days 2-5) PO 6 tabs 0RF R09.81 - Nasal congestion Refilled fluticasone propionate 50 mcg/actuation (Flonase Allergy Relief) administer into each nostril 2 sprays intranasal DAILY 16 grams 0RF J01.00 - Acute maxillary sinusitis, unspecified
== END 2024-04-02 09:27 | disposition home or self-care (01) ==
PROVIDERS: PCP Internal Medicine; Visit Provider Internal Medicine
DX: K21.9 Gastro-esophageal reflux disease without esophagitis (principal); E78.00 Pure hypercholesterolemia, unspecified; E03.9 Hypothyroidism, unspecified; F41.1 Generalized anxiety disorder; R05.9 Cough, unspecified; R09.81 Nasal congestion; Z23 Encounter for immunization

== ENCOUNTER 2024-04-02 08:43 | Outpatient (REF) | payer OTHER, SELFPAY ==
--- NOTE | ~2024-04-02 | XR_ITS ---
EXAMINATION: XR CHEST CLINICAL INFORMATION: Cough. COMPARISON: Most recent chest radiograph dated 09/07/2021. TECHNIQUE: 2 views of the chest were obtained. FINDINGS: The lungs are clear. The cardiomediastinal silhouette is normal in size. There is no pleural effusion or pneumothorax. No acute osseous abnormality. XR/XR chest 2V IMPRESSION: No acute cardiopulmonary findings. Electronically signed by: Steve Hastings MD 04/02/2024 10:35 AM MALLY REN
== END 2024-04-02 08:44 | disposition home or self-care (01) ==
LOC: HO.XRAY 08:43
PROVIDERS: PCP Internal Medicine; Visit Provider Internal Medicine
DX: E03.9 Hypothyroidism, unspecified (principal); K21.9 Gastro-esophageal reflux disease without esophagitis; E78.00 Pure hypercholesterolemia, unspecified; F41.1 Generalized anxiety disorder; R05.9 Cough, unspecified; R09.81 Nasal congestion; Z28.21 Immunization not carried out because of patient refusal
CPT/HCPCS: 71046; 90471; 99212

== ENCOUNTER 2024-06-09 08:56 | Outpatient (AMB) | payer OTHER, SELFPAY ==
--- NOTE | 2024-06-09 09:01 | AM.OFFWIN_ITS ---
Intake Vital Signs 06/09/24 09:07 Height 5 ft 4 in Weight 160 lb BMI 27.5 BP 130/90 H Blood Pressure Location Lt brachial Position Sitting Pulse 77 Pulse Source Pulse Oximeter Temp 98.0 F Temp Source Oral Pulse Oximetry (%) 97 Oxygen Delivery Method Room Air Intake Visit Reasons: EP-?uti and b/l hands finger lump Intake Note: Patient here feels like she is not emptying her bladder, urgency and only a small amount of urine comes out. she would also like to have bumps on fingers that have been there since . Patient Tobacco Use Status: Former Tobacco user Allergies No Known Allergies [No Known Allergies*] Allergy (Verified 06/09/24 09:09) Do you need a note to return to daycare/school/sports/work: No HPI HPI Comments History of Present Illness Details History of Present Illness - The patient is a 63-year-old female pr esenting with symptoms indicative of a urinary tract infection and concerns about warts treatment. - Urinary symptoms include increased loan quency, urge incontinence, with urine described as bubbly and slightly malodorous. No fever is reported, only mild chills, and the absence of back pain. - For wart management, she has been usin g vrzc-gyi-ghiiahb salicylic acid since , with ongoing discomfort but persistence in use. Physical Exam General: Cooperative, healthy appearing, comfortable, no acute distress and well developed Orientation: Patient oriented x3 Limitations: No limitations Head: Normal to inspection Ears: Hearing grossly normal bilaterally Nose: Normal external nose present Face and sinus: Normal facial exam Eyes: Appearance normal, both eyes and all related structures Neck: Normal visual inspection and Yes full ROM Respiratory: Normal respiratory effort and able to speak in complete sentences. Skin: left hand 2nd digit and right hand 3rd digit each have a skin colored raised umbilicated lesion, no signs of infection, no erythema Neuro: Patient oriented x3 Extremities: Normal to inspection [facility] Medical History Annual physical exam Tubular adenoma Impaired glucose tolerance COVID-19 virus infection Hemorrhoid Colon cancer screening Myalgia Cervical cancer screening SOB (shortness of breath) RUQ abdominal pain Obesity (BMI 30.0-34.9) Endocervical polyp Hematuria Facial lesion Abdominal bloating Exposure to COVID-19 virus Peripheral vascular disease History of renal calculi Mixed stress and urge urinary incontinence Anemia GERD (gastroesophageal reflux disease) Insomnia Vitamin D deficiency Hypothyroid Hypercholesterolemia Surgical History Hx of colonoscopy History of tubal ligation Family History Father No problems noted. Mother Liver cancer Diabetes Hypertension Cirrhosis Paternal Aunt Breast cancer Father No problems noted. Mother Liver cancer Diabetes Hypertension Cirrhosis Paternal Aunt Breast cancer Social History Housing: House Alcohol intake: current Alcohol intake frequency: does not drink Comment: once a week 1 glass Patient Tobacco Use Status: Former Tobacco user Tobacco use type: Cigarette Years Smoked: 27 years old e-Cigarette/Vaping Use: Never Used Second Hand Smoke Exposure: No service: No Current occupational status: unemployed Cognitive needs: No Hearing needs: No Vision needs: Yes Female Reproductive History Menstrual Age of Menarche: 11 Review of Systems Const All systems reviewed & are unremarkable except as noted in HPI and below Physical Exam Vital Signs: Last Vital Signs Temp 98.0 F 06/09/24 09:07 Pulse 77 06/09/24 09:07 BP 130/90 H 06/09/24 09:07 Pulse Ox 97 06/09/24 09:07 Oxygen Delivery Method Room Air 06/09/24 09:07 BMI result Body Mass Index 27.5 Results AMB Urinalysis, Automated UA Leukoctes 0 Kathleen/uL Last Edit by KAVYA Villarreal on 06/09/24 09:23 UA Nitrite Negative Last Edit by KAVYA Villarreal on 06/09/24 09:23 UA Urobilinogen 0.2 mg/dL Last Edit by KAVYA Villarreal on 06/09/24 09:23 UA Protein 0 mg/dL Last Edit by KAVYA Villarreal on 06/09/24 09:23 UA pH 6.0 Last Edit by KAVYA Villarreal on 06/09/24 09:23 UA Blood 0 Dick/uL Last Edit by KAVYA Villarreal on 06/09/24 09:23 UA Specific [place] 1.005 Last Edit by KAVYA Villarreal on 06/09/24 09:23 UA Ketone Negative Last Edit by KAVYA Villarreal on 06/09/24 09:23 UA Bilirubin 0 mg/dL Last Edit by KAVYA Villarreal on 06/09/24 09:23 UA Glucose 0 mg/dL Last Edit by KAVYA Villarreal on 06/09/24 09:23 Assessment & Plan Assessment & Plan (1) UTI (urinary tract infection): Code(s): N39.0 - Urinary tract infection, site not specified Qualifiers: Urinary tract infection type: acute cystitis Hematuria presence: without hematuria Qualified Code(s): N30.00 - Acute cystitis without hematuria Plan: UA negative for infection, will treat pt based on symptoms. Treatment for the urinary tract infection includes a course of antibiotics to be taken for five to seven days, with instructions to avoid pantoprazole concurrently. (2) Wart of hand: Code(s): B07.9 - Viral wart, unspecified Plan: For wart management, continued application of salicylic acid is recommended, adhering to the specified treatment regimen. If warts do not improve, follow-up with Dr. Child is advised for potential further management or dermatological referral. Consistency in treatment and appropriate application techniques are emphasized to achieve resolution. Plan Patient was informed and verbally consented to the use of an ambient scribe for clinic note documentation during this visit. Orders: Orders AMB Urinalysis Automated Today Z13.9 - Encounter for screening, unspecified Medications: New cefuroxime axetil 500 mg PO Q12H 14 tabs 0RF Coding Level of Care Code Est Pt Level 4 (73063) Diagnoses Acute cystitis without hematuria N30.00 Urinary tract infection type: acute cystitis Hematuria presence: without hematuria Wart of hand B07.9
[2024-06-09 09:07] VITALS: BP 130/90; PULSE 77; TEMP 36.7; O2SAT 97; BMI 27.5
--- OUTSIDE RECORDS SUMMARY | 2024-06-09 09:43 | XMS_ITS | Encounter Summary ---
Author Organization [employer] [facility] Address [address] [place] [address] Care Team Providers Care Donation Worker Name Role Phone Unavailable Primary Care Provider Unavailabl e Encounter Details Date Type Department Care Team (Latest Contact Info) Description 02/13/2021 Abstract C CONVERSIONS Dental, Provider, DDS Social History Tobacco Use Types Packs/Day Years Used Date Smoking Tobacco: Never Assessed Comments Unknown Sex and Gender Information Value Date Recorded Sex Assigned at Female 02/04/2022 10:15 AM EDT Legal Sex Female 10:15 AM EDT Gender Identity Female 02/04/2022 10:15 AM EDT Sexual Orientation Straight 02/04/2022 10 :15 AM EDT documented as of this encounter Plan of Treatment Not on file documented as of this encounter Visit Diagnoses Not on filedocumented in this encounter
--- OUTSIDE RECORDS SUMMARY | 2024-06-09 09:43 | XMS_ITS | Clinical Summary ---
Author Organization [employer] [facility] Address [address] [place] [address] Care Team Providers Care Technical Stenographer Name Role Phone Unavailable Primary Care Provider Unavailabl e Allergies No known active allergies Medications Synthroid 125 MCG tablet 3 Active simvastatin (Zocor) 5 MG tablet TAKE 1 TABLET ORALLY AT BEDTIME 2 Active zolpidem (Ambien) 10 MG tablet TAKE 1 TABLET BY MOUTH NEEDED FOR SLEEP 3 Active cetirizine (ZyrTEC) 10 MG tablet Take 10 mg by mouth in the morning. 3 Active Sodium Fluoride (PreviDent 5000 Booster Plus) 1.1 % paste Apply a smear of the paste on the brush and brush thoroughly twice daily. Spit, do not rinse. 112 g 2 3 Active pantoprazole (ProtoNix) 40 MG EC tablet TAKE 1 TABLET BY MOUTH EVERY DAY 1/2 HOUR BEFORE BREAKFAST 4 Active Active Problems Problem Noted Date Diagnosed Date Acute apical periodontitis of pulpal origin 05/2022 Social History Tobacco Use Types Packs/Day Years Used Date Smoking Tobacco: Never Passive Smoke Exposure: Never Smokeless Tobacco: Never Tobacco Cessation:Counseling Given: Not Answered Alcohol Use Standard Drinks/Week Comments Defer 0 (1 standard drink = 0.6 oz pur e alcohol) Comments Unknown Sex and Gender Information Value Date Recorded Sex Assigned at Female 02/04/2022 10:15 AM EDT Legal Sex Female 10:15 AM EDT Gender Identity Female 02/04/2022 10:15 AM EDT Sexual Orientation Straight 02/04/2022 10 :15 AM EDT Last Filed Vital Signs Vital Sign Reading Time Taken Comments Blood Pressure 126/66 11/05/2023 9:07 AM EDT Pulse 65 11/05/2023 9:07 AM EDT Temperature - - Respiratory Rate - - Oxygen Saturation - - Inhaled Oxygen Concentration - - Weight - - Height - - Body Mass Index - - Plan of Treatment Health Maintenance Due Date Last Done Comments CT Colonography 1962 Colonoscopy 1962 Colorectal Cancer Screening 1962 Dental X-Ray: Full Mouth 1962 Depression Screening 1962 FIT DNA/Cologuard 1962 FIT 1962 FOBT 1962 HIV Screening 1962 SDOH Screening 1962 Sigmoidoscopy 1962 Alcohol/Substance Use Screening 1974 Hepatitis C Screening 1980 DTaP/Tdap/Td Vaccines (1 - Tdap) 1981 Pap Smear 07/31/1983 Cervical Cancer Screening 1992 HPV/Cotest 1992 Mammogram 2002 Pneumococcal Vaccine: 50+ Years (1 of 1 - PCV) 2012 Hepatitis B Vaccines (2 of 3 - 19+ 3-dose series) 01/08/2018 12/11/2017 COVID-19 Vaccine (3 - 2023-2 5 season) 2023 08/23/2020, 07/26/2020 Influenza Vaccine (#1) 2023 Zoster Vaccines (2 of 2) 01/23/2024 11/28/2023 Dental Oral Exam 05/08/2024 11/05/2023, 10/17/2022 Dental Prophylaxis 05/08/2024 11/05/2023, 10/17/2022 Dental X-Ray: Bitewings 11/05/2024 11/05/19 24, 06/10/2023, 10/17/2022 Tobacco Screening 12/09/2024 12/10/2023 RSV Patients and Patients Aged 60 years or older (1 - 1-dose 75+ series) 2037 HIB Vaccines Aged Out No longer eligi ble based on patient's age to complete this topic HPV Vaccines Aged Out No longer eligi ble based on patient's age to complete this topic Hepatitis A Vaccines Aged Out No long er eligible based on patient's age to complete this topic IPV Vaccines Aged Out No longer eligi ble based on patient's age to complete this topic Meningococcal Vaccine Aged Out No seamus lio eligible based on patient's age to complete this topic RSV under 20 months Aged Out No longe r eligible based on patient's age to complete this topic Rotavirus Vaccines Aged Out No longer eligible based on patient's age to complete this topic Procedures Procedure Name Priority Date/Time Associated Diagnosis Comments Full PROPHYLAXIS - ADULT Routine 024 9:00 AM EDT BITEWINGS - 4 RADIOGRAPHIC IMAGES Routine 11/05/2023 9:00 AM EDT PERIODIC ORAL EVALUATION - ESTABLISHED PATIENT Routine 11/05/2023 9:00 AM EDT from Last 3 Months or Most Recently Relevant to Health Maintenance Insurance * Guarantor: [employer]ena [employer] Account Type Relation to Patient Date of Phone Billing Address Dental Self [address] [place] [id number] DENTAL - HSN PARTIAL (MEDICAID) * Guarantor: [employer] Account Type Relation to Patient Date of Phone Billing Address Personal/Family Self [address] [place] [id number] * Guarantor: [employer] Account Type Relation to Patient Date of Phone Billing Address Personal/Family Self [address] [place] [address] * Guarantor: [employer]ena [employer] Account Type Relation to Patient Date of Phone Billing Address Personal/Family Self [address] [place] [id number] * Guarantor: [employer]ena [employer] Account Type Relation to Patient Date of Phone Billing Address Personal/Family Self [address] [place] [id number]
--- OUTSIDE RECORDS SUMMARY | 2024-06-09 09:43 | XMS_ITS | Encounter Summary ---
Author Organization [employer] [facility] Address [address] [place] [address] Care Team Providers Care Sap Basis Architect Name Role Phone Unavailable Primary Care Provider Unavailabl e Encounter Details Date Type Department Care Team (Latest Contact Info) Description 01/12/2019 Abstract [facility] CONVERSIONS Dental, Provider, DDS Social History Tobacco [...]
== END 2024-06-09 10:01 | disposition home or self-care (01) ==
PROVIDERS: PCP Internal Medicine; Visit Provider Physician Assistant
DX: N30.00 Acute cystitis without hematuria (principal); B07.9 Viral wart, unspecified

== ENCOUNTER → 2024-06-09 08:56 | Outpatient (BNVA) | payer OTHER, SELFPAY | PROVIDERS: PCP Internal Medicine; Visit Provider Physician Assistant | DX: N30.00 Acute cystitis without hematuria (principal); B07.9 Viral wart, unspecified | CPT/HCPCS: 81003; 99212 ==

== ENCOUNTER 2024-06-17 08:56 | Outpatient (AMB) | payer OTHER, SELFPAY ==
--- NOTE | 2024-06-17 08:58 | A.OFFVIS_ITS ---
Vital Signs 06/17/24 09:00 Height 5 ft 4 in Weight 159 lb 2.78 oz BMI 27.3 BP 124/70 Blood Pressure Location Rt brachial Position Sitting Pulse 60 Pulse Source Pulse Oximeter Pulse Oximetry (%) 96 Oxygen Delivery Method Room Air Intake Visit Reasons: 6 month follow up Intake Note: ESTABLISHED PATIENT for mgmt of constipation w/ hemorrhoids. Chief Complaint; C/O RUQ 'pressure', pt denies pain at this time, stating that the sensation feels like a 'bubble'. Pt also reports having mild reflux and a bitter taste in their mouths intermittently. No additional concerns at this time. Craft Center Director Required: No Accompanied by: Self / Same As Patient Allergies No Known Allergies [No Known Allergies*] Allergy (Verified 06/17/24 08:59) HPI HPI 6 month follow up: Details: LAST VISIT: GERD (gastroesophageal reflux disease) Status post colonoscopy Postprandial epigastric pain Constipation Plan Continue avoiding dietary triggers. Patient will continue taking pantoprazole daily. Avoid late night snacking. Staying upright for minimum 3 hours after meals discussed with patient. Patient will increase fluid intake and activity to promote better bowel motility. Senokot on as needed. Follow-up in 6 months, sooner on as needed basis. She is agreeable to this plan and verbalizes understanding of instructions she was given the opportunity to ask questions and all questions answered. ? TODAY'S VISIT Patient is here today for follow-up. Patient reports that she has been feeling fairly well. However patient does report right upper quadrant pressure, feels sometimes like bubble is stuck in her. Denies pain or cramping. Denies any nausea or vomiting. Denies any dyspepsia, dysphagia or odynophagia. Reports that she moves her bowels daily without any issues. Admits to feeling bloated occasionally after meals. Patient reports that pantoprazole is working for her. Otherwise patient is feeling well. [facility] Medical History Annual physical exam Tubular adenoma Impaired glucose tolerance COVID-19 virus infection Hemorrhoid Colon cancer screening Myalgia Cervical cancer screening SOB (shortness of breath) RUQ abdominal pain Obesity (BMI 30.0-34.9) Endocervical polyp Hematuria Facial lesion Abdominal bloating Exposure to COVID-19 virus Peripheral vascular disease History of renal calculi Mixed stress and urge urinary incontinence Anemia GERD (gastroesophageal reflux disease) Insomnia Vitamin D deficiency Hypothyroid Hypercholesterolemia Surgical History Hx of colonoscopy History of tubal ligation Family History Father No problems noted. Mother Liver cancer Diabetes Hypertension Cirrhosis Paternal Aunt Breast cancer Father No problems noted. Mother Liver cancer Diabetes Hypertension Cirrhosis Paternal Aunt Breast cancer Social History Housing: House Alcohol intake: current Alcohol intake frequency: does not drink Comment: once a week 1 glass Patient Tobacco Use Status: Former Tobacco user Tobacco use type: Cigarette Years Smoked: 27 years old e-Cigarette/Vaping Use: Never Used Second Hand Smoke Exposure: No service: No Current occupational status: unemployed Cognitive needs: No Hearing needs: No Vision needs: Yes Female Reproductive History Menstrual Age of Menarche: 11 Review of Systems Const Denies weight gain and Denies weight loss ENT Reports no additional complaints, Denies dysphagia and Denies odynophagia Card Reports no additional complaints Resp Reports no additional complaints GI Reports abdominal pain (RUQ,), Denies belching, Denies melena, Reports bloating, Denies change in bowel habits, Denies dysphagia, Denies excessive flatus, Denies dyspepsia, Denies heartburn, Denies diarrhea, Denies loose stools, Denies nausea, Denies odynophagia and Denies vomiting Musc Reports no additional complaints Neuro Reports no additional complaints Psych Reports no additional complaints Endo Reports no additional complaints Physical Exam Vital Signs: Last Vital Signs Pulse 60 06/17/24 09:00 BP 124/70 06/17/24 09:00 Pulse Ox 96 06/17/24 09:00 Oxygen Delivery Method Room Air 06/17/24 09:00 BMI result Body Mass Index 27.3 Const General: healthy appearing, no acute distress and well developed Nutritional Appearance: well nourished Orientation/consciousness: patient oriented x3 Resp Effort & Inspection: normal respiratory effort, able to speak in complete sentences, no tracheal deviation and symmetric chest movement Auscultation: clear to auscultation bilaterally Cardio Rate: regular rate GI Inspection: Yes normal to inspection and No distended Palpation (GI): Soft to palpation, not firm, nontender and No hepatosplenomegaly present Auscultation: normal bowel sounds General: Yes no CVA tenderness Back/Spine/Pelvis Back: no CVA tenderness Skin General skin exam: elasticity normal, turgor normal and dry skin Neuro General: patient oriented x3 Psych Appearance: grossly normal Mental Status: mental status grossly normal Assessment & Plan Assessment & Plan (1) GERD (gastroesophageal reflux disease): Code(s): K21.9 - Gastro-esophageal reflux disease without esophagitis Category: Medical Qualifiers: Esophagitis presence: without esophagitis Qualified Code(s): K21.9 - Gastro-esophageal reflux disease without esophagitis (2) Postprandial epigastric pain: Code(s): R10.13 - Epigastric pain (3) Constipation: Code(s): K59.00 - Constipation, unspecified Qualifiers: Constipation type: slow transit constipation Qualified Code(s): K59.01 - Slow transit constipation (4) RUQ abdominal pain: Code(s): R10.11 - Right upper quadrant pain Plan continue pantoprazole daily. Avoid dietary triggers and late night snacking. Staying upright for minimum 3 hours after meals discussed with patient. Patient will try low FODMAP diet. Patient does have booklet at home with list of food recommended as well as list of food to avoid. can take simethicone with meals. Increase fluid intake and activity to promote better bowel motility. Patient will be sent for abdominal ultrasound to rule out cholelithiasis unlikely cholecystitis as patient does not have any tenderness to right upper quadrant. Feeling of pressure and cramping not related to meals. Patient will follow-up in our office in 6 months, sooner on as needed basis. Patient is agreeable to this plan verbalizes understanding of instructions. She was given the opportun ity to ask questions and all questions answered. Thank you for allowing me to participate in her care Orders: Orders US abdomen complete Today R10.9 - Unspecified abdominal pain Medications: New cholecalciferol (vitamin D3) 50 mcg PO DAILY 90 caps 3RF R79.89 - Other specified abnormal findings of blood chemistry simethicone 125 mg PO BID-QID PRN 120 caps 3RF abdominal distention Coding Level of Care Code Est Pt Level 3 (12037) Diagnoses Gastroesophageal reflux disease without esophagitis K21.9 Esophagitis presence: without esophagitis Postprandial epigastric pain R10.13 Slow transit constipation K59.01 Constipation type: slow transit constipation RUQ abdominal pain R10.11 Time Spent (min) 25 Comment 15 minutes spent with patient and additional 10 minutes spent reviewing her re cords
[2024-06-17 09:00] VITALS: BP 124/70; PULSE 60; O2SAT 96; BMI 27.3
== END 2024-06-17 09:31 | disposition home or self-care (01) ==
LOC: HO.HGI 08:56
PROVIDERS: PCP Internal Medicine; Visit Provider Nurse Practitioner Family
DX: K21.9 Gastro-esophageal reflux disease without esophagitis (principal); R10.13 Epigastric pain; K59.01 Slow transit constipation; R10.11 Right upper quadrant pain
CPT/HCPCS: 99213

== ENCOUNTER → 2024-06-17 08:56 | Outpatient (BNVA) | payer OTHER, SELFPAY | PROVIDERS: PCP Internal Medicine; Visit Provider Nurse Practitioner Family | DX: K64.9 Unspecified hemorrhoids (principal); K59.01 Slow transit constipation; K21.9 Gastro-esophageal reflux disease without esophagitis; R10.13 Epigastric pain; R10.11 Right upper quadrant pain; R79.89 Other specified abnormal findings of blood chemistry | CPT/HCPCS: 99212 ==

== ENCOUNTER 2024-07-02 08:22 | Outpatient (AMB) | payer OTHER, SELFPAY ==
[2024-07-02 08:33] VITALS: BP 112/62; PULSE 66; RESP 18; TEMP 36.2; O2SAT 97; BMI 28.4
--- NOTE | 2024-07-02 08:33 | MHC.PC.OV ---
Vital Signs 07/02/24 08:33 Height 5 ft 4 in Weight 165 lb 9.6 oz BMI 28.4 BP 112/62 Blood Pressure Location Lt brachial Position Sitting Respiration 18 Pulse 66 Pulse Source Pulse Oximeter Temp 97.1 F Temp Source Temporal Artery Scan Pulse Oximetry (%) 97 Intake Visit Reasons: Cholesterol, naSal congestion Estimator Paperboard Boxes Required: No Accompanied by: Self / Same As Patient Allergies No Known Allergies [No Known Allergies*] Allergy (Verified 07/02/24 08:36) Tobacco use date assessed: 07/02/24 Dental Screening Dental Screen Date: 07/02/24 Did you have a dental visit in the last 12 months?: No Did you have a dental problem in the last 6 months where you did not have access to dental care?: No Was dental information given to patient?: Patient has dentist [facility] Medical History (Updated 07/02/24 @ 08:59 by Tanya Child MD) Wart of hand Annual physical exam Tubular adenoma Impaired glucose tolerance COVID-19 virus infection Hemorrhoid Colon cancer screening Myalgia Cervical cancer screening SOB (shortness of breath) RUQ abdominal pain Obesity (BMI 30.0-34.9) Endocervical polyp Hematuria Facial lesion Abdominal bloating Exposure to COVID-19 virus Peripheral vascular disease History of renal calculi Mixed stress and urge urinary incontinence Anemia GERD (gastroesophageal reflux disease) Insomnia Vitamin D deficiency Hypothyroid Hypercholesterolemia Surgical History Hx of colonoscopy History of tubal ligation Family History Father No problems noted. Mother Liver cancer Diabetes Hypertension Cirrhosis Paternal Aunt Breast cancer Father No problems noted. Mother Liver cancer Diabetes Hypertension Cirrhosis Paternal Aunt Breast cancer Social History Housing: House Alcohol intake: current Alcohol intake frequency: does not drink Comment: once a week 1 glass Patient Tobacco Use Status: Former Tobacco user Tobacco use type: Cigarette Years Smoked: 27 years old e-Cigarette/Vaping Use: Never Used Second Hand Smoke Exposure: No service: No Current occupational status: unemployed Cognitive needs: No Hearing needs: No Vision needs: Yes (Glasses) Female Reproductive History Menstrual Age of Menarche: 11 Questionnaire Thrive Questionnaire Date Thrive assessed: 07/02/24 I am a: Patient What is your living situation today?: I have a steady place to live Within the past 12 months, did the food you bought not last and you didn't have the money to get more?: Sometimes True Within the past 12 months, did you worry whether your food would run out before you got money to buy more?: Sometimes True Do you have trouble paying for medicines?: No Do you have trouble getting transportation to medical appointments?: No Do you have trouble paying your heating and electricity bill?: No Do you have trouble taking care of your child, family member or friend?: No Do you have trouble with day-to-day activities such as bathing, preparing meals, shopping, managing finances, etc.?: No Are you currently unemployed and looking for a job?: No Are you interested in more education?: No Please select the resources that you would like help with: None Currently or been in a relationship where the following occur: No concerns reported THRIVE Score: 2 AUDIT C Alcohol Use Questionnaire (AUDIT-C) 1. How often do you have a drink containing alcohol?: Monthly or less 2. How many drinks containing alcohol do you have on a typical day when you are drinking?: 1 or 2 3. How often do you have six or more drinks on one occasion?: Never Total Score: 1 JENNIE-7 AMB Questionnaire JENNIE-7 Date JENNIE - 7 assessed: 06/17/23 Source: Developed by Drs. Abdiel Solomon, Beryl Martin, Riki Mazariegos and colleagues, with an educational lana from [employer]. Physical exam (Primary Care) Vital Signs: Last Vital Signs Temp 97.1 F 07/02/24 08:33 Pulse 66 07/02/24 08:33 Resp 18 07/02/24 08:33 BP 112/62 07/02/24 08:33 Pulse Ox 97 07/02/24 08:33 BMI result Body Mass Index 28.4 Tobacco/Smoking Status: Tobacco use Status Tobacco use date assessed 07/02/24 07/02/24 08:41 Patient Tobacco Use Status Former Tobacco user 07/02/24 08:41 Tobacco use type Cigarette 07/02/24 08:41 e-Cigarette/Vaping Use Never Used 07/02/24 08:41 Thrive Assessment: Date of Thrive Assessment Date Thrive assessed 07/02/24 07/02/24 08:41 Currently or been in a relationship where the following occur: No concerns reported Const General: alert; No acute distress Eyes Conjunctivae: conjunctivae normal Resp Auscultation: clear to auscultation bilaterally Cardio Rate: regular rate Rhythm: regular rhythm GI Inspection: Yes normal to inspection Extrem Other: 5 mm blister on the left D IP dorsum(2nd) finger and popped blister with scabbing and scaliness 5 mm on the right dorsum D IP pointer finger with mild erythema on the base Coding Level of Care Code Est Pt Level 4 (09962) Diagnoses Wart of hand B07.9 Dysuria R30.0 Gastroesophageal reflux disease without esophagitis K21.9 Esophagitis presence: without esophagitis Hypercholesterolemia E78.00 Acquired hypothyroidism E03.9 Hypothyroidism type: acquired Generalized anxiety disorder F41.1 Blister of finger S60.429A Impacted cerumen, right ear H61.21 Assessment & Plan Assessment & Plan (1) Wart of hand: Code(s): B07.9 - Viral wart, unspecified Category: Medical Plan: Patient was seen in the Urgent Center and was advised to use salicylic acid. (2) Dysuria: Code(s): R30.0 - Dysuria Category: Medical Plan: Concerned as the patient had negative urine but was treated with antibiotic.. resolved (3) GERD (gastroesophageal reflux disease): Code(s): K21.9 - Gastro-esophageal reflux disease without esophagitis Category: Medical Qualifiers: Esophagitis presence: without esophagitis Qualified Code(s): K21.9 - Gastro-esophageal reflux disease without esophagitis Plan: Avoid the foods that causes that usually spicy foods, tomato products, juices, coffee, soda and foods that your sensitive to. After eating do not lie down, allow 3-4 hours before in lie down. And keep the head of bed above 30 degrees to avoid the acid from going up. (4) Hypercholesterolemia: Code(s): E78.00 - Pure hypercholesterolemia, unspecified Category: Medical Plan: Avoid fried foods, chicken skin, eggs, butter margarine, pastries and meat. Be it pork or beef they have a lot of cholesterol LDL goal of less than 130 and triglyceride of less than 150 patient is on simvastatin 5 mg at bedtime (5) Hypothyroid: Code(s): E03.9 - Hypothyroidism, unspecified Category: Medical Qualifiers: Hypothyroidism type: acquired Qualified Code(s): E03.9 - Hypothyroidism, unspecified Plan: Continue with thyroid medication (6) Generalized anxiety disorder: Code(s): F41.1 - Generalized anxiety disorder Category: Medical Plan: Stable (7) Blister of finger: Code(s): S60.429A - Blister (nonthermal) of unspecified finger, initial encounter Category: Medical (8) Impacted cerumen, right ear: Code(s): H61.21 - Impacted cerumen, right ear Category: Medical Plan History of Present Illness The patient is a 63-year-old female presenting with a follow-up for her hypercholesterolemia, GERD, and generalized anxiety disorder. She has noted recent weight gain and reports a history of elevated cholesterol levels, including a triglyceride level of 197 mg/dL and LDL of 134 mg/dL. Her GERD symptoms, managed with pantoprazole, were addressed by gastroenterology on June 17. Additionally, she experiences generalized anxiety disorder, which is continuously monitored. The patient sought care at an urgent center for dysuria and growth on fingers, and despite a negative urinalysis, she received an antibiotic course. She was also found to have sinus congestion managed with sinus rinses and symptomatic allergic management using cetirizine. Prior examinations revealed mild vitamin D deficiency and thyroid function tests showing stability on existing medication. Health Maintenance - Mammogram was conducted in June 2023 and is currently due. - Colonoscopy was last performed in August 2023. - Regular use of sinus rinses advised for sinus congestion management. - Continuation of managing allergies with cetirizine. Social History Review of Systems - Skin: Reports growths on fingers for six months. - Genitourinary: Reports dysuria. - Respiratory: Reports persistent sinus congestion. Physical Exam Results - Labs: Elevated cholesterol (triglycerides at 197 mg/dL, LDL at 134 mg/dL), vitamin D is mildly low, normal thyroid function. - Tests: Last chest X-ray on April 02 was negative; urinalysis was negative. Plan The patient will continue with simvastatin 5 mg nightly to manage hypercholesterolemia, aiming for LDL and triglyceride goals. Hypothyroidism treatment will remain unchanged as function tests indicate stability. GERD symptoms are managed with pantoprazole, with a recent review by gastroenterology. Ongoing monitoring for generalized anxiety disorder is advised. Sinus congestion will be controlled with sinus rinses and cetirizine. A dermatology consultation is recommended for persistent finger growths, and the patient is advised to complete a mammogram and maintain regular health maintenance. Patient was informed and verbally consented to the use of an ambient scribe for clinic note documentation during this visit. Discussion Notes I discussed with the patient the current management strategies for her hypercholesterolemia, including the continued use of simvastatin, and emphasized the importance of meeting lipid targets. The stability of her hypothyroidism on current medication was confirmed. GERD is managed with pantoprazole, to which I provided assurances following consultation with gastroenterology. We explored sinus congestion management with sinus rinses and cetirizine for allergies. Finger growths need dermatological evaluation, so I recommended scheduling a visit. We also reviewed the due mammogram and emphasized the need for timely health maintenance screenings. Patient Instructions - Continue simvastatin 5 mg at bedtime. - Use sinus rinses regularly for congestion relief. - Take cetirizine for allergy management as needed. - Schedule and attend a dermatology appointment for the growth on fingers. - Ensure to complete a mammogram as soon as possible. - Follow up with health maintenance screenings for optimal wellness. Orders: Referrals Dermatology Referral S60.429A - Blister (nonthermal) of unspecified finger, initial encounter
== END 2024-07-02 09:03 | disposition home or self-care (01) ==
LOC: HO.HMCH 08:23
PROVIDERS: PCP Internal Medicine; Visit Provider Internal Medicine
DX: R30.0 Dysuria (principal); K21.9 Gastro-esophageal reflux disease without esophagitis; B07.9 Viral wart, unspecified; E78.00 Pure hypercholesterolemia, unspecified; E03.9 Hypothyroidism, unspecified; F41.1 Generalized anxiety disorder; S60.429A Blister (nonthermal) of unspecified finger, initial encounter; H61.21 Impacted cerumen, right ear

== ENCOUNTER 2024-07-05 | Outpatient (REF) | payer OTHER, SELFPAY ==
--- OUTSIDE RECORDS SUMMARY | 2024-09-30 17:44 | XMS_ITS | Clinical Summary ---
Author Organization [employer] [facility] Address [address] [place] [address] Care Team Providers Care Mentally Retarded Teacher Name Role Phone Unavailable Primary Care Provider [...] Screening 1960 SDOH Screening 1960 Sigmoidoscopy 1960 Disability Screening 1960 Alcohol/Substance Use Screening 1974 Hepatitis C Screening 1980 DTaP/Tdap/Td Vaccines (1 - Tdap) 1981 Pap Smear 07/31/1983 Cervical Cancer Screening 1992 HPV/Cotest 1992 Mammogram 2002 Pneumococcal Vaccine: 50+ Years (1 of 1 - PCV) 2012 Hepatitis B Vaccines (2 of 3 - 19+ 3-dose series) 01/08/2018 12/11/2017 COVID-19 Vaccine (3 - 2023-2 5 season) 2023 08/23/2020, 07/26/2020 Zoster Vaccines (2 of 2) 01/23/2024 11/28/2023 Dental Oral Exam 05/08/2024 11/05/2023, 10/17/2022 Dental Prophylaxis 05/08/2024 11/05/2023, 10/17/2022 Dental X-Ray: Bitewings 11/05/2024 11/05/19 24, 06/10/2023, 10/17/2022 Influenza Vaccine (Season Ended) 2024 Tobacco Screening 12/09/2024 12/10/2023 RSV Patients and [...] patient's age to complete this topic Meningococcal B Vaccine Aged Out No l onger eligible based on patient's age to complete [...] [address] [place] [address] DENTAL - HSN PARTIAL (MEDICAID) * Guarantor: Xena Love Account Type Relation to Patient Date of Phone Billing Address Personal/Family Self [address] [place] [address] * Guarantor: Xena Love Account Type Relation to Patient Date of Phone Billing Address Personal/Family Self [address] [place] [address] * Guarantor: Xena Love Account Type Relation to Patient Date of Phone Billing Address Personal/Family Self [address] [place] [address] * Guarantor: Xena Love Account Type Relation to Patient Date of Phone Billing Address Personal/Family Self [address] [place] [phone]
== END 2024-07-05 00:01 | disposition home or self-care (01) ==
LOC: CF
PROVIDERS: PCP Internal Medicine; Visit Provider Internal Medicine
DX: E78.00 Pure hypercholesterolemia, unspecified (principal); B07.9 Viral wart, unspecified; R30.0 Dysuria; K21.9 Gastro-esophageal reflux disease without esophagitis; E03.9 Hypothyroidism, unspecified; F41.1 Generalized anxiety disorder; H61.21 Impacted cerumen, right ear; S60.421A Blister (nonthermal) of left index finger, initial encounter; X58.XXXA Exposure to other specified factors, initial encounter; Y93.9 Activity, unspecified; Y92.9 Unspecified place or not applicable; Y99.9 Unspecified external cause status
CPT/HCPCS: 99212

== ENCOUNTER 2024-07-12 08:39 | Outpatient (REF) | payer OTHER, SELFPAY ==
--- OUTSIDE RECORDS SUMMARY | 2024-07-12 09:17 | XMS_ITS | Encounter Summary ---
Author Organization [employer] [facility] Address [address] [place] [address] Care Team Providers Care Conference Assistant Name Role Phone Unavailable Primary Care Provider Unavailabl e Encounter Details Date Type Department Care Team (Latest Contact Info) Description 01/12/2019 Abstract [facility] CONVERSIONS Dental, Provider, DDS Social History Tobacco [...]
--- OUTSIDE RECORDS SUMMARY | 2024-07-12 09:17 | XMS_ITS | Clinical Summary ---
Author Organization [employer] [facility] Address [address] [place] [address] Care Team Providers Care Front Counter Attendant Name Role Phone Unavailable Primary Care Provider [...] [address] [place] [id number] DENTAL - HSN PARTIAL (MEDICAID) * Guarantor: Xena Love Account Type Relation to Patient Date of Phone Billing Address Personal/Family Self [address] [place] [id number] * Guarantor: Xena Love Account Type Relation to Patient Date of Phone Billing Address Personal/Family Self [address] [place] [id number] * Guarantor: Xena Love Account Type Relation to Patient Date of Phone Billing Address Personal/Family Self [address] [place] [id number] * Guarantor: Beaver Gordon, Xena Account Type Relation to Patient Date of Phone Billing Address Personal/Family Self [address] [place] [id number]
--- OUTSIDE RECORDS SUMMARY | 2024-07-12 09:17 | XMS_ITS | Encounter Summary ---
Author Organization [employer] [facility] Address [address] [place] [address] Care Team Providers Care Environmental Construction Engineer Name Role Phone Unavailable Primary Care Provider [...]
== END 2024-07-12 08:40 | disposition home or self-care (01) ==
LOC: HO.MAMMO 08:39
PROVIDERS: PCP Internal Medicine; Visit Provider Internal Medicine
DX: Z12.31 Encounter for screening mammogram for malignant neoplasm of breast (principal)
CPT/HCPCS: 77063; 77067

== ENCOUNTER → 2024-07-12 08:45 | Outpatient (BNV) | payer OTHER, SELFPAY | PROVIDERS: PCP Internal Medicine; Visit Provider Internal Medicine | DX: Z12.31 Encounter for screening mammogram for malignant neoplasm of breast (principal) | CPT/HCPCS: 77063; 77067 ==

== ENCOUNTER 2024-07-12 09:16 | Outpatient (REF) | payer SELFPAY ==
--- OUTSIDE RECORDS SUMMARY | 2024-07-12 10:20 | XMS_ITS | Clinical Summary ---
Author Organization [employer] [facility] Address [address] [place] [address] Care Team Providers Care Point Of Care Specialist Name Role Phone Unavailable Primary Care Provider [...] [address] [place] [address] DENTAL - HSN PARTIAL (MEDICAID) * Guarantor: Xena Love Account Type Relation to Patient Date of Phone Billing Address Personal/Family Self [address] [place] [id number] * Guarantor: Xena Love Account Type Relation to Patient Date of Phone Billing Address Personal/Family Self [address] [place] [address] * Guarantor: Xena Love Account Type Relation to Patient Date of Phone Billing Address Personal/Family Self [address] [place] [id number] * Guarantor: Beaver Gordon, Xena Account Type Relation to Patient Date of Phone Billing Address Personal/Family Self [phone] [place] [id number]
--- OUTSIDE RECORDS SUMMARY | 2024-07-12 10:20 | XMS_ITS | Encounter Summary ---
Author Organization [employer] [facility] Address [address] [place] [address] Care Team Providers Care Manager Language Name Role Phone Unavailable Primary Care Provider [...]
--- OUTSIDE RECORDS SUMMARY | 2024-07-12 10:20 | XMS_ITS | Encounter Summary ---
Author Organization [employer] [facility] Address [address] [place] [address] Care Team Providers Care Oyster Washer Name Role Phone Unavailable Primary Care Provider Unavailabl e Encounter Details Date Type Department Care Team (Latest Contact Info) Description 01/12/2019 Abstract [facility] CONVERSIONS Dental, Provider, DDS Social History [...]
[2024-07-12 11:15] LABS: Alanine Aminotransferase 22 U/L (0-31); Albumin Level 4.5 g/dL (3.5-5.0); Alkaline Phosphatase 55 U/L (39-117); Anion Gap 11 (12-20); Aspartate Amino Transferase 27 U/L (5-31); Bilirubin Total 0.4 mg/dL (0.0-1.0); Blood Urea Nitrogen 15 mg/dL (9-16); Calcium 9.4 mg/dL (8.4-10.2); Carbon Dioxide 27 mmol/L (22-29); Chloride 106 mmol/L (96-108); Cholesterol 180 mg/dL (<200); Estimated Glomerular Filt Rate > 60; Glucose Random 99 mg/dL (60-115); HDL Cholesterol 44 mg/dL (>40); LDL Cholesterol Calculated 103 mg/dL (<100); Potassium 3.9 mmol/L (3.3-5.1); Sodium 140 mmol/L (135-145); Total Protein 7.9 g/dL (6.5-8.0); Triglycerides 167 mg/dL (<150)
== END 2024-07-12 09:17 | disposition home or self-care (01) ==
LOC: HO.10HDL 09:16
PROVIDERS: Visit Provider Internal Medicine
DX: E78.00 Pure hypercholesterolemia, unspecified (principal)
CPT/HCPCS: 36415; 80053; 80061

== ENCOUNTER 2024-07-16 08:41 | Outpatient (REF) | payer OTHER, SELFPAY ==
--- NOTE | ~2024-07-16 | US_ITS ---
EXAMINATION: US ABDOMEN COMPLETE CLINICAL INFORMATION: Unspecified abdominal pain. COMPARISON: CT abdomen and pelvis 11/18/2022. TECHNIQUE: Real-time imaging of the abdominal viscera. FINDINGS: PANCREAS: Visualized portions are unremarkable. ABDOMINAL AORTA: The proximal, mid, and distal segments are normal in caliber. INFERIOR VENA CAVA: Visualized portions are normal. LIVER: The liver is normal in size. Right lobe measures 15.2 cm in length. The liver contour is normal. Parenchymal echogenicity is normal. No focal hepatic lesion. There is no intrahepatic biliary duct dilatation seen. GALLBLADDER: The gallbladder is physiologically distended without evidence of stones, sludge, polyps, wall thickening or pericholecystic fluid. Gallbladder with wall thickness measures 0.21 cm. COMMON BILE DUCT: Normal in caliber measuring 0.25 cm in diameter. RIGHT KIDNEY: No hydronephrosis. No renal calculi or focal parenchymal lesions. The kidney measures 10.2 cm in maximum dimension. LEFT KIDNEY: No hydronephrosis. No renal calculi or focal parenchymal lesions. The kidney measures 1.8 cm in maximum dimension. SPLEEN: The spleen measures 8.4 cm in maximum dimension. There is a small hypoechoic lesion along the medial border of spleen measuring 1.6 x 0.9 x 1.5 cm likely simple cyst. A cyst was visualized on the previous CT abdomen exam 11/18/2022. FREE FLUID: None. US/US abdomen complete IMPRESSION: Small splenic cyst, unchanged to the CT abdomen exam from 11/18/2022. Rest of the abdominal ultrasound is unremarkable. Electronically signed by: Juan Carlos Horne MD 07/16/2024 10:17 AM EDT
--- OUTSIDE RECORDS SUMMARY | 2024-07-16 08:49 | XMS_ITS | Clinical Summary ---
Author Organization [employer] [facility] Address [address] [place] [address] Care Team Providers Care Day Habilitation Supervisor Name Role Phone Unavailable Primary Care Provider [...] [address] [place] [address] DENTAL - HSN PARTIAL (MEDICAID) * Guarantor: Xena Love Account Type Relation to Patient Date of Phone Billing Address Personal/Family Self [address] [place] [id number] * Guarantor: Xena Love Account Type Relation to Patient Date of Phone Billing Address Personal/Family Self [address] [place] [address] * Guarantor: Xena Love Account Type Relation to Patient Date of Phone Billing Address Personal/Family Self [address] [place] [id number] * Guarantor: Beaver Gordon, Xena Account Type Relation to Patient Date of Phone Billing Address Personal/Family Self [address] [place] [id number]
--- OUTSIDE RECORDS SUMMARY | 2024-07-16 08:49 | XMS_ITS | Encounter Summary ---
Author Organization [email or web address] [facility] Address [address] [place] [address] Care Team Providers Care Metal Pickling Equipment Operator Name Role Phone Unavailable Primary Care Provider Unavailabl e Encounter Details Date Type Department Care Team (Latest Contact Info) Description 01/12/2019 Abstract [facility] CONVERSIONS Dental, Provider, DDS Social History Tobacco [...]
--- OUTSIDE RECORDS SUMMARY | 2024-07-16 08:49 | XMS_ITS | Encounter Summary ---
Author Organization [employer] [facility] Address [address] [place] [address] Care Team Providers Care Fitting Room Operator Name Role Phone Unavailable Primary Care [...]
== END 2024-07-16 08:42 | disposition home or self-care (01) ==
LOC: HO.US 08:41
PROVIDERS: PCP Internal Medicine; Visit Provider Nurse Practitioner Family
DX: R10.9 Unspecified abdominal pain (principal)
CPT/HCPCS: 76700

== ENCOUNTER → 2024-07-16 08:44 | Outpatient (BNV) | payer OTHER, SELFPAY | PROVIDERS: PCP Internal Medicine; Visit Provider Radiology Diagnostic Radiology | DX: D73.4 Cyst of spleen (principal) | CPT/HCPCS: 76700 ==

== ENCOUNTER 2024-10-18 08:58 | Outpatient (AMB) | payer OTHER, SELFPAY ==
--- NOTE | 2024-10-18 09:03 | A.OFFPC_ITS ---
Vital Signs 10/18/24 09:04 Height 5 ft 4 in Weight 162 lb 3 oz BMI 27.8 BP 118/64 Blood Pressure Location Lt brachial Position Sitting Pulse 68 Pulse Source Pulse Oximeter Temp 97.3 F Temp Source Temporal Artery Scan Pulse Oximetry (%) 98 Oxygen Delivery Method Room Air Intake Visit Reasons: annual exam Mechanical Design Drafter Required: No Accompanied by: Self / Same As Patient Allergies No Known Allergies (No Known Allergies*) Allergy (Verified 10/18/24 09:18) Medication List - Last Reconciled 10/18/24 by Li Brink PA-C albuterol sulfate 90 mcg/actuation 2 puffs inhalation Q6H PRN cetirizine 10 mg PO DAILY PRN 90 days cholecalciferol (vitamin D3) 50 mcg PO DAILY docusate sodium 100 mg PO BEDTIME fluoride (sodium) 1.1% (Denta 5000 Plus) appl PO fluticasone propionate 50 mcg/actuation (Flonase Allergy Relief) 2 sprays intranasal DAILY pantoprazole 40 mg PO QAM simvastatin 5 mg PO BEDTIME Synthroid (levothyroxine) 125 mcg PO DAILY NS zolpidem 10 mg PO BEDTIME PRN Tobacco use date assessed: 10/18/24 Dental Screening Dental Screen Date: 10/18/24 Did you have a dental visit in the last 12 months?: No Did you have a dental problem in the last 6 months where you did not have access to dental care?: No Was dental information given to patient?: Patient has dentist HPI annual exam HPI Details 64-year-old female with past medical his tory of hypercholesterolemia, GERD, hypothyroid, IBS, generalized anxiety disorder last seen 06/[address] Child coming in for annual exam. Presenting for an annual wellness examination. Reports hand pain with needle- like sensations and weakness, leading to dropping objects. No prior diagnosis or nerve studies. Reports pain and swelling in fingers, with visible swelling in one hand. Experiences sporadic abdominal pain, with no clear cause identified from imaging. Reports dizziness during prolonged standing or exertion, without chest pain or dyspnea but does report chest heaviness and chest pressure. Mammogram: 07/2024 repeat in 1 year Eye exam: referral palced today Pap smear: Last completed 2022 Colonoscopy: 08/2023 tubular adenoma repeat in 5 years vaccines: Td due patient declined, UTD shingles PFSH Medical History Wart of hand Annual physical exam Tubular adenoma Impaired glucose tolerance COVID-19 virus infection Hemorrhoid Colon cancer screening Myalgia Cervical cancer screening SOB (shortness of breath) RUQ abdominal pain Obesity (BMI 30.0-34.9) Endocervical polyp Hematuria Facial lesion Abdominal bloating Exposure to COVID-19 virus Peripheral vascular disease History of renal calculi Mixed stress and urge urinary incontinence Anemia GERD (gastroesophageal reflux disease) Insomnia Vitamin D deficiency Hypothyroid Hypercholesterolemia Surgical History Hx of colonoscopy History of tubal ligation Family History Father No problems noted. Mother Liver cancer Diabetes Hypertension Cirrhosis Paternal Aunt Breast cancer Father No problems noted. Mother Liver cancer Diabetes Hypertension Cirrhosis Paternal Aunt Breast cancer Social History Housing: House Alcohol intake: current Alcohol intake frequency: does not drink Comment: once a week 1 glass Patient Tobacco Use Status: Former Tobacco user Tobacco use type: Cigarette Years Smoked: 27 years old e-Cigarette/Vaping Use: Never Used Second Hand Smoke Exposure: No service: No Current occupational status: unemployed Cognitive needs: No Hearing needs: No Vision needs: Yes (Glasses) Female Reproductive History Menstrual Age of Menarche: 11 Questionnaire PHQ-9 Over the last 2 weeks, how often have you been bothered by any of the following problems? 1. Little interest or pleasure in doing things: not at all 2. Feeling down, depressed, or hopeless: several days 3. Trouble falling or staying asleep, or sleeping too much: not at all 4. Feeling tired or having little energy: not at all 5. Poor appetite or overeating: not at all 6. Feeling bad about yourself - or that you are a failure or have let yourself or your family down: not at all 7. Trouble concentrating on things, such as reading the newspaper or watching television: not at all 8. Moving or speaking so slowly that other people could have noticed. Or the opposite - being so fidgety or restless that you have been moving around a lot more than usual: not at all 9. Thoughts that you would be better off or of hurting yourself in some way: not at all Total score: 1 Depression Screening Interpretation: Negative Depression Screening Done: Yes 18116 - PHQ-9 Billing: Yes Source: Developed by Drs. Abdiel Solomon, Beryl Martin, Riki Mazariegos and colleagues, with an educational lana from [employer]. Thrive Questionnaire Date Thrive assessed: 10/18/24 AUDIT C Alcohol Use Questionnaire (AUDIT-C) 1. How often do you have a drink containing alcohol?: Monthly or less 2. How many drinks containing alcohol do you have on a typical day when you are drinking?: 1 or 2 3. How often do you have six or more drinks on one occasion?: Never Total Score: 1 JENNIE-7 AMB Questionnaire JENNIE-7 Date JENNIE - 7 assessed: 10/18/24 Source: Developed by Drs. Abdiel Solomon, Beryl Martin, Riki Mazariegos and colleagues, with an educational lana from [employer]. Review of Systems Const Denies body aches, Denies fatigue, Denies fever(s), Denies frequent falls, Denies headache(s) and Denies weakness Eyes Reports no additional complaints, Denies change in vision, Reports itchy eyes (occasional ) and Reports requires corrective lenses ENT Denies dysphagia, Denies dizziness, Denies facial pain, Denies headache(s) and Denies odynophagia Card Details: chest heaviness with exercise Denies chest pain, Denies syncope, Denies irregular heart rhythm, Denies leg edema, Reports lightheadedness (w/ exercise ) and Denies dyspnea Resp Denies cough and Denies dyspnea GI Reports abdominal pain (occasional epigastric ), Denies constipation, Denies dysphagia, Denies dyspepsia, Denies diarrhea, Denies nausea, Denies odynophagia and Denies vomiting Denies urinary frequency, Denies dysuria, Denies urinary hesitancy and Denies urinary urgency Musc Denies back pain and Denies myalgias Skin/Breast Reports system reviewed and no additional complaints, except as documented Neuro Denies dizziness, Denies syncope, Denies frequent falls, Denies headache(s) and Denies weakness Psych Reports no additional complaints Endo Denies fatigue Aller/Immun Reports itchy eyes (occasional ) Physical exam (Primary Care) Vital Signs: Last Vital Signs Temp 97.3 F 10/18/24 09:04 Pulse 68 10/18/24 09:04 BP 118/64 10/18/24 09:04 Pulse Ox 98 10/18/24 09:04 Oxygen Delivery Method Room Air 10/18/24 09:04 BMI result Body Mass Index 27.8 Tobacco/Smoking Status: Tobacco use Status Tobacco use date assessed 10/18/24 10/18/24 09:11 Patient Tobacco Use Status Former Tobacco user 10/18/24 09:11 Tobacco use type Cigarette 10/18/24 09:11 e-Cigarette/Vaping Use Never Used 10/18/24 09:11 PHQ-9: PHQ-9 Score PHQ-9: Total score 1 10/18/24 09:26 Depression Screening Interpretation: Negative Thrive Assessment: Date of Thrive Assessment Date Thrive assessed 10/18/24 10/18/24 09:11 Const General: cooperative, healthy appearing, comfortable and no acute distress Orientation/consciousness: patient oriented x3 HENMT Head: Yes normocephalic Ears: hearing grossly normal bilaterally, external ears normal, TM's normal bilaterally and EAC's normal General nose exam: Normal external nose present Face and sinus: Yes normal facial exam and Yes sinuses nontender Mouth: Normal oral and palatal mucosa present and tongue normal Throat: Yes posterior oropharynx normal Eyes General: appearance normal, both eyes and all related structures Conjunctivae: conjunctivae normal Pupils: Equal, round and reactive pupils present EOM: EOMs intact bilaterally and No Nystagmus present Neck Neck: Yes normal visual inspection, Yes full ROM and Yes no lymphadenopathy Chest Chest palpation & inspection: normal inspection of the chest Resp Effort & Inspection: normal respiratory effort Auscultation: clear to auscultation bilaterally, no crackles, no rales, no rhonchi, no wheezes and breath sounds present Cardio Rate: regular rate Rhythm: regular rhythm Peripheral pulses: radial pulses present and dorsalis pedis present GI Inspection: Yes normal to inspection and No Abdominal wall edema Palpation (GI): Soft to palpation, not firm and nontender Auscultation: normal bowel sounds Rectal Exam - Female: deferred General: Yes no CVA tenderness Back/Spine/Pelvis Back: no CVA tenderness Skin General skin exam: no rashes or lesions noted Neuro General: patient oriented x3 Cranial nerves: Yes Equal, round and reactive pupils present, Yes Midline tongue present, Yes Ability to bilaterally elevate shoulders present and No Nystagmus present Gait exam (Neuro): Normal gait present Extrem General: Yes normal to inspection, Yes full ROM, No no pedal edema and No edema Psych Speech and movement: Normal speech and movement present Affect: normal affect Insight: Good insight present (Psych) Judgement: Good judgement present (Psych) Coding Level of Care Code Est Pt Prev Care 40-64y(22723) Diagnoses Annual physical exam Z00.00 Generalized anxiety disorder F41.1 Hypercholesterolemia E78.00 Acquired hypothyroidism E03.9 Hypothyroidism type: acquired Gastroesophageal reflux disease without esophagitis K21.9 Esophagitis presence: without esophagitis Irritable bowel syndrome without diarrhea K58.9 Irritable bowel syndrome type: without diarrhea Primary insomnia F51.01 Insomnia type: primary Tubular adenoma D36.9 Weakness of both hands R29.898 Left hand pain M79.642 Chest discomfort R07.89 Additional Codes PHQ-9 - 44209 - PHQ-9 Billing: Yes ([id number]) Assessment & Plan Assessment & Plan (1) Annual physical exam: Code(s): Z00.00 - Encounter for general adult medical examination without abnormal findings Category: Medical Plan: Patient is up-to-date on all recommended routine screenings for her age. She is due for a tetanus vaccine today which was declined at this time. Her blood work is up-to-date and has been within normal limits. We will repeat labs in 6 months and appointment to follow with her regular PCP. Healthy diet and regular exercise is encouraged. (2) Generalized anxiety disorder: Code(s): F41.1 - Generalized anxiety disorder Category: Medical Plan: Patient feels her anxiety is well managed at this time not currently on medical management. (3) Hypercholesterolemia: Code(s): E78.00 - Pure hypercholesterolemia, unspecified Category: Medical Plan: Avoid foods that are high in cholesterol such as red meat, fried foods, eggs and baked goods. Triglyceride goal of less than 150 and LDL goal of less than 130. Last blood work WNL. Continue on simvastatin 5 (4) Hypothyroid: Code(s): E03.9 - Hypothyroidism, unspecified Category: Medical Qualifiers: Hypothyroidism type: acquired Qualified Code(s): E03.9 - Hypothyroidism, unspecified Plan: Continue to monitor routine blood work and currently on levothyroxine 125 mcg. (5) GERD (gastroesophageal reflux disease): Code(s): K21.9 - Gastro-esophageal reflux disease without esophagitis Category: Medical Qualifiers: Esophagitis presence: without esophagitis Qualified Code(s): K21.9 - Gastro-esophageal reflux disease without esophagitis Plan: Avoid trigger foods such as citrus, tomato products, soda, caffeine, spicy foods and other foods that may be irritating to your stomach. Avoid laying flat 3-4 hours after eating and elevate the head of the bed 30 degrees to prevent acid from moving into the esophagus. Continue on pantoprazole (6) IBS (irritable bowel syndrome): Code(s): K58.9 - Irritable bowel syndrome, unspecified Category: Medical Qualifiers: Irritable bowel syndrome type: without diarrhea Qualified Code(s): K58.9 - Irritable bowel syndrome without diarrhea Plan: Patient has history of IBS recommend increasing dietary fiber intake, Colace as needed and stay well hydrated. (7) Insomnia: Code(s): G47.00 - Insomnia, unspecified Category: Medical Qualifiers: Insomnia type: primary Qualified Code(s): F51.01 - Primary insomnia Plan: Patient is currently using Ambien 10 mg at bedtime and finds this beneficial. (8) Tubular adenoma: Comment: 08/2023 Code(s): D36.9 - Benign neoplasm, unspecified site Category: Medical Plan: Patient will be due for colonoscopy in 2028 (9) Weakness of both hands: Code(s): R29.898 - Other symptoms and signs involving the musculoskeletal system Category: Medical Plan: Patient having weakness and pain in bilateral hands and finds that she is persistently dropping things due to weakness and numbness. Plan to obtain EMG of bilateral upper extremities and referral was placed to orthopedics as well. (10) Left hand pain: Code(s): M79.642 - Pain in left hand Category: Medical Plan: See above plan (11) Chest discomfort: Code(s): R07.89 - Other chest pain Category: Medical Plan: Patient reporting chest discomfort with exertion feels like a heaviness or pressure on the chest. She has a history of cardiac stress test over 5 years ago which was normal. Given her worsening symptoms over the last several years plan to obtain repeat stress test for further evaluation. Plan The patient will undergo a nerve conduction study to evaluate for carpal tunnel syndrome, given the reported hand pain and weakness. A referral to orthopedics is made to assess for arthritis, considering the reported hand swelling and pain. A stress test is recommended due to the patient's dizziness during exertion, to rule out any cardiovascular causes. Preventative care includes a referral for an annual eye exam and monitoring of cholesterol levels, which are currently well-controlled. This note was constructed using voice recognition software. While every effort has been made to ensure accuracy and blue line operator, still areas may have been included sometimes these areas may affect the content or meeting of the given symptoms. Total time spent caring for the patient today was at 30 minutes. This includes time spent before the visit reviewing the chart, time spent during the visit, and time spent after the visit and documentation. Patient was informed and verbally consented to the use of an ambient scribe for clinic note documentation during this visit. Orders: Orders Vitamin B12 and Folate Today K21.9 - Gastro-esophageal reflux disease without esophagitis, Z13.21 - Encounter for screening for nutritional disorder Vitamin D 25-OH Total Today K21.9 - Gastro-esophageal reflux disease without esophagitis, Z00.00 - Encounter for general adult medical examination without abnormal findings TSH reflex Free T4 Today E03.9 - Hypothyroidism, unspecified, Z00.00 - Encounter for general adult medical examination without abnormal findings NE electromyogram (EMG) Today R29.898 - Other symptoms and signs involving the musculoskeletal system NE nerve conduction velocity Today R29.898 - Other symptoms and signs involving the musculoskeletal system CA stress test Today R07.89 - Other chest pain Lipid Panel Today E78.00 - Pure hypercholesterolemia, unspecified Comprehensive Met. Panel Today K21.9 - Gastro-esophageal reflux disease without esophagitis, Z00.00 - Encounter for general adult medical examination without abnormal findings Complete Blood Count Auto Diff Today K21.9 - Gastro-esophageal reflux disease without esophagitis, Z00.00 - Encounter for general adult medical examination without abnormal findings Free T4 (Free Thyroxine) Today E03.9 - Hypothyroidism, unspecified, Z00.00 - Encounter for general adult medical examination without abnormal findings Referrals Optometry Referral Z00.00 - Encounter for general adult medical examination without abnormal findings Orthopedics Referral M79.642 - Pain in left hand, R29.898 - Other symptoms and signs involving the musculoskeletal system
[2024-10-18 09:04] VITALS: BP 118/64; PULSE 68; TEMP 36.3; O2SAT 98; BMI 27.8
--- OUTSIDE RECORDS SUMMARY | 2024-10-18 09:13 | XMS_ITS | Clinical Summary ---
Author Organization [facility] [employer] Address [address] [place] [address] Care Team Providers Care Drum Stenciler Name Role Phone Unavailable Primary Care Provider [...] 11/05/2024 11/05/19 24, 06/10/2023, 10/17/2022 Influenza Vaccine (#1) 2024 Tobacco Screening 12/09/2024 12/10/2023 RSV Patients [...] [address] [place] [address] DENTAL - HSN PARTIAL (MEDICAID) * Guarantor: Xena Love Account Type Relation to Patient Date of Phone Billing Address Personal/Family Self [address] [place] [address] * Guarantor: Xena Love Account Type Relation to Patient Date of Phone Billing Address Personal/Family Self [address] [place] [address] * Guarantor: Xena Love Account Type Relation to Patient Date of Phone Billing Address Personal/Family Self [address] [place] [address] * Guarantor: Xena Love Account Type Relation to Patient Date of Phone Billing Address Personal/Family Self [address] [place] [address]
== END 2024-10-18 09:47 | disposition home or self-care (01) ==
LOC: HO.HMCH 08:58
PROVIDERS: PCP Internal Medicine
DX: Z00.00 Encounter for general adult medical examination without abnormal findings (principal); F41.1 Generalized anxiety disorder; E78.00 Pure hypercholesterolemia, unspecified; E03.9 Hypothyroidism, unspecified; K21.9 Gastro-esophageal reflux disease without esophagitis; K58.9 Irritable bowel syndrome, unspecified; F51.01 Primary insomnia; D36.9 Benign neoplasm, unspecified site; R29.898 Other symptoms and signs involving the musculoskeletal system; M79.642 Pain in left hand; R07.89 Other chest pain

== ENCOUNTER → 2024-10-18 08:58 | Outpatient (BNVA) | payer SELFPAY | PROVIDERS: PCP Internal Medicine | DX: Z00.00 Encounter for general adult medical examination without abnormal findings (principal); F41.1 Generalized anxiety disorder; E78.00 Pure hypercholesterolemia, unspecified; E03.9 Hypothyroidism, unspecified; K21.9 Gastro-esophageal reflux disease without esophagitis; K58.9 Irritable bowel syndrome, unspecified; F51.01 Primary insomnia; D36.9 Benign neoplasm, unspecified site; R29.898 Other symptoms and signs involving the musculoskeletal system; M79.642 Pain in left hand; R07.89 Other chest pain; Z79.899 Other long term (current) drug therapy; Z13.31 Encounter for screening for depression | CPT/HCPCS: 96127; 99396 ==

== ENCOUNTER 2024-11-16 07:55 | Outpatient (REF) | payer OTHER, SELFPAY ==
--- OUTSIDE RECORDS SUMMARY | 2024-11-16 07:57 | XMS_ITS | Clinical Summary ---
Author Organization [employer] [facility] Address [address] [facility] [address]t [place] [address] Care Team Providers Care Sales Coach Name Role Phone Unavailable Primary Care Provider [...] [address] [place] [address] DENTAL - HSN PARTIAL (MEDICAID) * Guarantor: Xena Love Account Type Relation to Patient Date of Phone Billing Address Personal/Family Self [address] [place] [address] * Guarantor: Xena Love Account Type Relation to Patient Date of Phone Billing Address Personal/Family Self [address] [place] [address] * Guarantor: Xena Love Account Type Relation to Patient Date of Phone Billing Address Personal/Family Self [address] [place] [address] * Guarantor: Xena Love Account Type Relation to Patient Date of Phone Billing Address Personal/Family Self [address] [place] [address]
--- NOTE | 2024-11-16 07:59 | EMG_ITS ---
Bilateral median and ulnar motor and sensory studies were performed bilateral radial sensory and median and lateral antecubital brachial sensory studies were performed an EMG needle examination was performed. Impression: 1. Mild left ulnar neuropathy across cubital tunnel 2. Bilateral Blake Cely anastomosis, normal variant MTDD
== END 2024-11-16 07:56 | disposition home or self-care (01) ==
LOC: HO.NEURO 07:55
PROVIDERS: PCP Internal Medicine
DX: R29.898 Other symptoms and signs involving the musculoskeletal system (principal)
CPT/HCPCS: 95886; 95913

== ENCOUNTER → 2024-11-16 07:59 | Outpatient (BNV) | payer OTHER, SELFPAY | PROVIDERS: PCP Internal Medicine; Visit Provider Psychiatry & Neurology Neurology | DX: R20.2 Paresthesia of skin (principal) | CPT/HCPCS: 95886; 95912 ==

== ENCOUNTER → 2024-11-29 09:27 | Outpatient (REF) | payer OTHER, SELFPAY ==
--- NOTE | 2024-11-29 09:30 | CA_ITS ---
Acquisition Time: 2024-11-29 09:42:52 Total Exercise Time: 00:05:00 Test Indications: CP Medications: SEE H&P Protocol: TIN Max HR: 142 BPM 89% of Pred: 158 BPM Max BP: 180/58 mmHG Max Work Load: 5.0 METS Exercise stress test with exercise 5 mins of Tin Protocol with reduced speed at 1.7mph, achieving 87% MPHR, with reports of SOB and dizziness, no chest pain, without any arrythmias, with normotensive response to exercise. With borerline ST depression inferiorly with exercise possibly meeting criteria for ischemia; nonspecific at baseline. In recovery, dizziness and SOB resolved. ST segement improved. Recommend stress test with nuclear images for further evaluatuion. Test reviewed with Dr. Carias. Referred By: Li Brink Electronically Signed By: Lazaro Morel
--- OUTSIDE RECORDS SUMMARY | 2024-11-29 10:12 | XMS_ITS | Clinical Summary ---
Author Organization [employer] [facility] Address [address] [place] [address] Care Team Providers Care Elementary Instructional Coach Name Role Phone Unavailable Primary Care [...] [address] [place] [address] DENTAL - HSN PARTIAL (MEDICAID) * Guarantor: Xena Love Account Type Relation to Patient Date of Phone Billing Address Personal/Family Self [address] [place] [address] * Guarantor: Xena Love Account Type Relation to Patient Date of Phone Billing Address Personal/Family Self [address] [place] [address] * Guarantor: Xena Love Account Type Relation to Patient Date of Phone Billing Address Personal/Family Self [address] [place] [address] * Guarantor: Xena Love Account Type Relation to Patient Date of Phone Billing Address Personal/Family Self [address] [place] [address]
== END ==
LOC: HO.CARD 09:27
PROVIDERS: PCP Internal Medicine
DX: R07.89 Other chest pain (principal)
CPT/HCPCS: 93017

== ENCOUNTER → 2024-11-29 09:30 | Outpatient (BNV) | payer OTHER, SELFPAY | PROVIDERS: PCP Internal Medicine | DX: R06.02 Shortness of breath (principal); R42 Dizziness and giddiness | CPT/HCPCS: 93016; 93018 ==

== ENCOUNTER 2024-12-02 16:44 | Outpatient (REF) | payer OTHER, SELFPAY ==
--- NOTE | ~2024-12-02 | XR_ITS ---
EXAMINATION: XR HAND, LEFT CLINICAL INFORMATION: M79.642 - Pain in left hand; pain base of thumb. COMPARISON: None available. TECHNIQUE: PA, lateral, and oblique views of the left hand. FINDINGS: There is no fracture, dislocation, or suspicious bone lesion. There is normal alignment. Moderate osteoarthrosis is present at the first CMC joint. There are mild degenerative changes throughout the DIP joints of the digits. Mild changes in the first MCP joint. Joint spaces are otherwise well maintained. No erosive arthropathy evident. No soft tissue abnormalities. XR/XR hand LT min 3V IMPRESSION: 1. No acute bony abnormalities of the left hand. 2. 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 3. Mild degenerative arthrosis in the DIP joints of the digits, and in the first MCP joint. Electronically signed by: Ryan Lazo MD 12/03/2024 10:28 AM EDT
--- OUTSIDE RECORDS SUMMARY | 2024-12-02 16:49 | XMS_ITS | Clinical Summary ---
Author Organization [facility] Address [address] [place] [address] Care Team Providers Care Editor Index Name Role Phone Unavailable Primary Care Provider [...] [address] [place] [address] DENTAL - HSN PARTIAL (MEDICAID) * Guarantor: Xena Love Account Type Relation to Patient Date of Phone Billing Address Personal/Family Self [address] [place] [address] * Guarantor: Xena Love Account Type Relation to Patient Date of Phone Billing Address Personal/Family Self [address] [place] [address] * Guarantor: Xena Love Account Type Relation to Patient Date of Phone Billing Address Personal/Family Self [address] [place] [address] * Guarantor: Xena Love Account Type Relation to Patient Date of Phone Billing Address Personal/Family Self [address] [place] [address]
--- OUTSIDE RECORDS SUMMARY | 2024-12-02 16:49 | XMS_ITS | Encounter Summary ---
Author Organization [employer] [facility] Address [address] [place] [address] Care Team Providers Care Jigger Artisan Name Role Phone Unavailable Primary Care Provider Unavailabl e Encounter Details Date Type Department Care Team (Latest Contact Info) Description 01/12/2019 Abstract C CONVERSIONS Dental, Provider, DDS Social [...]
--- OUTSIDE RECORDS SUMMARY | 2024-12-02 16:49 | XMS_ITS | Encounter Summary ---
Author Organization [employer] [facility] Address [address] [facility] [address] [place] [address] Care Team Providers Care Legal Coordinator Name Role Phone Unavailable Primary Care Provider [...]
== END 2024-12-02 16:45 | disposition home or self-care (01) ==
LOC: HO.HOSX 16:44
DX: M79.642 Pain in left hand (principal)
CPT/HCPCS: 73130

== ENCOUNTER 2024-12-03 10:12 | Outpatient (AMB) | payer OTHER, SELFPAY ==
--- NOTE | 2024-12-03 10:34 | MHC.OFFVIS ---
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 Per referring provider, patient experiencing needle-like sensations and weakness, leading to dropping objects. Patient reports numbness and tingling that occurs most days, on and off, making it difficult to car ferry master, squeeze, and open and close lids. Denies finger locking. Patient states years ago she tried a squeezing brace . She has not tried OT or injections. She is currently taking her 's Ibuprofen 800 mg QD with some relief. Denies any prior injuries or surgeries to the hands. Allergies No Known Allergies (No Known Allergies*) Allergy (Verified 12/03/24 10:34) HPI HPI GUI DEVELOPER-Pain in left hand: Details: Xena is a 64 year old right hand dominant female who presents today as a new patient for evaluation of bilateral hand pain and numbness, left hand is greater than right. Per referring provider, patient experiencing needle-like sensations and weakness, leading to dropping objects. Patient states that her pain is primarily located at the base of bilateral thumbs Patient reports numbness and tingling that occurs most days, on and off, making it difficult to car ferry master, squeeze, and open and close lids. Patient expresses that the numbness and tingling is primarily in the index and middle fingers of the bilateral hands, denies any numbness or tingling in the ring or small fingers. Denies finger locking. Patient states years ago she tried a squeezing brace . She has not tried OT or injections. She is currently taking her 's Ibuprofen 800 mg QD with some relief. Denies any prior injuries or surgeries to the hands. [facility] Medical History Wart of hand Annual physical exam Tubular adenoma Impaired glucose tolerance COVID-19 virus infection Hemorrhoid Colon cancer screening Myalgia Cervical cancer screening SOB (shortness of breath) RUQ abdominal pain Obesity (BMI 30.0-34.9) Endocervical polyp Hematuria Facial lesion Abdominal bloating Exposure to COVID-19 virus Peripheral vascular disease History of renal calculi Mixed stress and urge urinary incontinence Anemia GERD (gastroesophageal reflux disease) Insomnia Vitamin D deficiency Hypothyroid Hypercholesterolemia Surgical History Hx of colonoscopy History of tubal ligation Family History Father No problems noted. Mother Liver cancer Diabetes Hypertension Cirrhosis Paternal Aunt Breast cancer Father No problems noted. Mother Liver cancer Diabetes Hypertension Cirrhosis Paternal Aunt Breast cancer Social History Housing: House Alcohol intake: current Alcohol intake frequency: does not drink Comment: once a week 1 glass Patient Tobacco Use Status: Former Tobacco user Tobacco use type: Cigarette Years Smoked: 27 years old e-Cigarette/Vaping Use: Never Used Second Hand Smoke Exposure: No service: No Current occupational status: unemployed Cognitive needs: No Hearing needs: No Vision needs: Yes (Glasses) Female Reproductive History Menstrual Age of Menarche: 11 Review of Systems Const All systems reviewed & are unremarkable except as noted in HPI and below Physical Exam Vital Signs: BMI result Body Mass Index 27.8 Extrem Other: Patient is alert, oriented, and in no acute distress. Neuro: Normal sensation of the tips of all digits of the bilateral hands at this time Vascular: Cap refill brisk Pain: Patient reports significant pain with CMC grind of bilateral hands Discomfort in the CMC joint of bilateral hands with range of motion No tenderness to palpation of radial styloid ROM: Patient is able to make a closed fist and extend all digits of bilateral hands fully Skin: No lacerations or abrasions. General: Noted deformity of bilateral CMC joints No ecchymosis, erythema, or evidence of infection. Psych: Appears grossly normal Affect normal Attitude cooperative Results Reviewed Results Reviewed: X-rays obtained in the office today and independently reviewed by me, Paramjit Ag PA-C, demonstrate moderate osteoarthritis of bilateral CMC joints of the thumbs. Assessment & Plan Assessment & Plan (1) Arthritis of carpometacarpal (CMC) joint of both thumbs: Code(s): M18.0 - Bilateral primary osteoarthritis of first carpometacarpal joints Category: Medical Plan 1. arthritis of CMC joint of bilateral thumbs Patient is educated about this condition Patient is educated about the treatment options available At this time, patient states that she would not like to move forward with injections, and would rather start with occupational therapy and bracing prior to any invasive treatment Patient is referred to OT for range of motion and strengthening of bilateral hands in the setting of bilateral CMC arthritis Patient provided with bilateral comfort cool braces to be worn symptomatically Patient is advised that if she does not experience relief with therapy, she should call us for reassessment and discussion of further treatment options Patient understands this is amenable to this plan Orders: Orders XR hand LT min 3V Today M79.642 - Pain in left hand OT Evaluation and Treatment Today M18.0 - Bilateral primary osteoarthritis of first carpometacarpal joints Coding Level of Care Code New Pt Level 3 (76603) Diagnoses Arthritis of carpometacarpal (CMC) joint of both thumbs M18.0
[2024-12-03 10:36] VITALS: BMI 27.8
--- OUTSIDE RECORDS SUMMARY | 2024-12-03 10:53 | XMS_ITS | Clinical Summary ---
Author Organization [facility] Address [address] [place] [address] Care Team Providers Care Interior Assemblies Developer Prover Name Role Phone Unavailable Primary Care Provider [...] [address] [place] [id number] DENTAL - HSN PARTIAL (MEDICAID) * Guarantor: Xena Love Account Type Relation to Patient Date of Phone Billing Address Personal/Family Self 1960 [address] [place] [id number] * Guarantor: Xena Love Account Type Relation to Patient Date of Phone Billing Address Personal/Family Self [address] [place] [id number] * Guarantor: Xena Love Account Type Relation to Patient Date of Phone Billing Address Personal/Family Self [address] [place] [id number] * Guarantor: Xena Love Account Type Relation to Patient Date of Phone Billing Address Personal/Family Self [id number] [place] [id number]
--- OUTSIDE RECORDS SUMMARY | 2024-12-03 10:53 | XMS_ITS | Encounter Summary ---
Author Organization [employer] [facility] Address [address] [place] [address] Care Team Providers Care Pulmonary Fellow Name Role Phone Unavailable Primary Care Provider [...]
--- OUTSIDE RECORDS SUMMARY | 2024-12-03 10:53 | XMS_ITS | Encounter Summary ---
Author Organization [employer] [facility] Address [address] [place] [address] Care Team Providers Care Flavoring Machine Operator Name Role Phone Unavailable Primary Care [...]
== END 2024-12-03 11:13 | disposition home or self-care (01) ==
LOC: HO.HOS 10:12
PROVIDERS: PCP Internal Medicine
DX: M18.0 Bilateral primary osteoarthritis of first carpometacarpal joints (principal)
CPT/HCPCS: 99203

== ENCOUNTER → 2024-12-03 10:12 | Outpatient (BNVA) | payer OTHER, SELFPAY | PROVIDERS: PCP Internal Medicine | DX: M79.642 Pain in left hand (principal); M18.0 Bilateral primary osteoarthritis of first carpometacarpal joints | CPT/HCPCS: 99202 ==

== ENCOUNTER → 2024-12-03 10:16 | Outpatient (BNV) | payer OTHER, SELFPAY | PROVIDERS: Visit Provider Radiology Diagnostic Radiology | DX: M18.12 Unilateral primary osteoarthritis of first carpometacarpal joint, left hand (principal) | CPT/HCPCS: 73130 ==

== ENCOUNTER 2024-12-16 08:24 | Outpatient (AMB) | payer OTHER, SELFPAY ==
--- NOTE | 2024-12-16 08:28 | A.OFFVIS_ITS ---
Vital Signs 12/16/24 08:32 Height 5 ft 4 in Weight 162 lb BMI 27.8 BP 106/62 Blood Pressure Location Rt brachial Position Sitting Pulse 64 Pulse Source Pulse Oximeter Pulse Oximetry (%) 95 Oxygen Delivery Method Room Air Intake Visit Reasons: 6 mo f/u Intake Note: ESTABLISHED PATIENT for mgmt of GERD + constipation w/ hemorrhoids. Chief Complaint; C.O. hemorrhoid exacerbation w/o active bleeding, and generalized abd discomfort per NSAIDS consumption lately for arthritis. Junior High School Teacher Required: No Accompanied by: Self / Same As Patient Allergies No Known Allergies (No Known Allergies*) Allergy (Verified 12/03/24 10:34) HPI HPI 6 mo f/u: Details: LAST VISIT: GERD (gastroesophageal reflux disease) Postprandial epigastric pain Constipation RUQ abdominal pain Plan continue pantoprazole daily. Avoid dietary triggers and late night snacking. Staying upright for minimum 3 hours after meals discussed with patient. Patient will try low FODMAP diet. Patient does have booklet at home with list of food recommended as well as list of food to avoid. can take simethicone with meals. Increase fluid intake and activity to promote better bowel motility. Patient will be sent for abdominal ultrasound to rule out cholelithiasis unlikely cholecystitis as patient does not have any tenderness to right upper quadrant. Feeling of pressure and cramping not related to meals. Patient will follow-up in our office in 6 months, sooner on as needed basis. Patient is agreeable to this plan verbalizes understanding of instructions. She was given the opportunity to ask questions and all questions answered. ? Thank you for allowing me to participate in her care Orders US abdomen complete Today R10.9 New cholecalciferol (vitamin D3) 50 mcg PO DAILY 90 caps 3RF R79.89 simethicone 125 mg PO BID-QID PRN 120 caps 3RF abdominal distention TODAY'S VISIT Patient is here today for follow-up. Abdominal ultrasound done in July. Normal ultrasound no acute abnormalities. Simple spleen cyst seen without change. Patient reports that she has been taking more ibuprofen in the past couple weeks. Suffering with pain from arthritis in her hip and her joints. Currently patient is going for physical therapy and has seen orthopedic providers. Patient reports abdominal pain in the epigastric pain, however reports the pantoprazole has been working if she does not have any epigastric pain or acid reflux. Patient reports constipation and abdominal bloating. Last BM this morning, however patient had trouble evacuating. ([place] stool chart 1) Patient reports that she had to push in order to have a bowel movement. Patient has used Proctosol cream in the past with good results [facility] Medical History Wart of hand Annual physical exam Tubular adenoma Impaired glucose tolerance COVID-19 virus infection Hemorrhoid Colon cancer screening Myalgia Cervical cancer screening SOB (shortness of breath) RUQ abdominal pain Obesity (BMI 30.0-34.9) Endocervical polyp Hematuria Facial lesion Abdominal bloating Exposure to COVID-19 virus Peripheral vascular disease History of renal calculi Mixed stress and urge urinary incontinence Anemia GERD (gastroesophageal reflux disease) Insomnia Vitamin D deficiency Hypothyroid Hypercholesterolemia Surgical History Hx of colonoscopy History of tubal ligation Family History Father No problems noted. Mother Liver cancer Diabetes Hypertension Cirrhosis Paternal Aunt Breast cancer Father No problems noted. Mother Liver cancer Diabetes Hypertension Cirrhosis Paternal Aunt Breast cancer Social History Housing: House Alcohol intake: current Alcohol intake frequency: does not drink Comment: once a week 1 glass Patient Tobacco Use Status: Former Tobacco user Tobacco use type: Cigarette Years Smoked: 27 years old e-Cigarette/Vaping Use: Never Used Second Hand Smoke Exposure: No service: No Current occupational status: unemployed Cognitive needs: No Hearing needs: No Vision needs: Yes (Glasses) Female Reproductive History Menstrual Age of Menarche: 11 Review of Systems Const Denies weight gain and Denies weight loss ENT Reports no additional complaints, Denies dysphagia and Denies odynophagia Card Reports no additional complaints Resp Reports no additional complaints GI Reports abdominal pain (RUQ,), Denies belching, Denies melena, Reports bloating, Denies change in bowel habits, Reports constipation, Denies dysphagia, Denies excessive flatus, Denies dyspepsia, Denies heartburn, Denies diarrhea, Denies loose stools, Denies nausea, Denies odynophagia and Denies vomiting Reports no additional complaints Musc Reports no additional complaints Neuro Reports no additional complaints Psych Reports no additional complaints Endo Reports no additional complaints Physical Exam Const General: healthy appearing, no acute distress and well developed Nutritional Appearance: well nourished Orientation/consciousness: patient oriented x3 Resp Effort & Inspection: normal respiratory effort, able to speak in complete sentences, no tracheal deviation and symmetric chest movement Auscultation: clear to auscultation bilaterally Cardio Rate: regular rate GI Inspection: Yes normal to inspection and No distended Palpation (GI): Soft to palpation, not firm, nontender and No hepatosplenomegaly present Auscultation: normal bowel sounds General: Yes no CVA tenderness Back/Spine/Pelvis Back: no CVA tenderness Skin General skin exam: elasticity normal, turgor normal and dry skin Neuro General: patient oriented x3 Psych Appearance: grossly normal Mental Status: mental status grossly normal Results Reviewed Results Reviewed: ABDOMINAL ULTRASOUND JULY 2024 FINDINGS: PANCREAS: Visualized portions are unremarkable. ABDOMINAL AORTA: The proximal, mid, and distal segments are normal in caliber. INFERIOR VENA CAVA: Visualized portions are normal. LIVER: The liver is normal in size. Right lobe measures 15.2 cm in length. The liver contour is normal. Parenchymal echogenicity is normal. No focal hepatic lesion. There is no intrahepatic biliary duct dilatation seen. GALLBLADDER: The gallbladder is physiologically distended without evidence of stones, sludge, polyps, wall thickening or pericholecystic fluid. Gallbladder with wall thickness measures 0.21 cm. COMMON BILE DUCT: Normal in caliber measuring 0.25 cm in diameter. RIGHT KIDNEY: No hydronephrosis. No renal calculi or focal parenchymal lesions. The kidney measures 10.2 cm in maximum dimension. LEFT KIDNEY: No hydronephrosis. No renal calculi or focal parenchymal lesions. The kidney measures 1.8 cm in maximum dimension. SPLEEN: The spleen measures 8.4 cm in maximum dimension. There is a small hypoechoic lesion along the medial border of spleen measuring 1.6 x 0.9 x 1.5 cm likely simple cyst. A cyst was visualized on the previous CT abdomen exam 11/18/2022. FREE FLUID: None. US/US abdomen complete IMPRESSION: Small splenic cyst, unchanged to the CT abdomen exam from 11/18/2022. Rest of the abdominal ultrasound is unremarkable. Assessment & Plan Assessment & Plan (1) IBS (irritable bowel syndrome): Code(s): K58.9 - Irritable bowel syndrome, unspecified Category: Medical Qualifiers: Irritable bowel syndrome type: without diarrhea Qualified Code(s): K58.9 - Irritable bowel syndrome without diarrhea (2) GERD (gastroesophageal reflux disease): Code(s): K21.9 - Gastro-esophageal reflux disease without esophagitis Category: Medical Qualifiers: Esophagitis presence: without esophagitis Qualified Code(s): K21.9 - Gastro-esophageal reflux disease without esophagitis (3) Hemorrhoid: Code(s): K64.9 - Unspecified hemorrhoids Category: Medical Qualifiers: Hemorrhoid type: unspecified Qualified Code(s): K64.9 - Unspecified hemorrhoids (4) Postprandial epigastric pain: Code(s): R10.13 - Epigastric pain (5) Constipation: Code(s): K59.00 - Constipation, unspecified Qualifiers: Constipation type: slow transit constipation Qualified Code(s): K59.01 - Slow transit constipation (6) Right upper quadrant abdominal pain: Code(s): R10.11 - Right upper quadrant pain Plan Ultrasound discussed with patient. No acute processes seen. Right upper quadrant pain most likely related to gas trapping. Patient does report bloating. Patient will try to take Dulcolax daily to help her empty her bowels better. Continue most FODMAP diet. Continue current management with PPI. Avoid dietary triggers and late night snacking. Staying upright for minimum 3 hours after meals discussed with patient. Patient will follow-up in 6 months, sooner on as needed basis. She is agreeable to this plan and verbalizes understanding of instructions. She was given the opportunity to ask questions and all questions answered. Thank you for allowing me to participate in her care Medications: New bisacodyl (Dulcolax (bisacodyl)) 10 mg (2 x 5 mg) PO BEDTIME 180 tabs 4RF hydrocortisone 2.5% (Proctosol HC) 1 appl [place] BID-QID PRN 30 grams 2RF hemorrhoids K64.9 - Unspecified hemorrhoids Refilled pantoprazole 40 mg PO QAM 90 tabs 3RF K21.9 - Gastro-esophageal reflux disease without esophagitis Coding Level of Care Code Est Pt Level 4 (57205) Complex EM visit Add On G2211 Diagnoses Irritable bowel syndrome without diarrhea K58.9 Irritable bowel syndrome type: without diarrhea Gastroesophageal reflux disease without esophagitis K21.9 Esophagitis presence: without esophagitis Hemorrhoids, unspecified hemorrhoid type K64.9 Hemorrhoid type: unspecified Postprandial epigastric pain R10.13 Slow transit constipation K59.01 Constipation type: slow transit constipation Right upper quadrant abdominal pain R10.11 Time Spent (min) 35 Comment 25 minutes spent with patient and additional 10 minutes spent reviewing her records
[2024-12-16 08:32] VITALS: BP 106/62; PULSE 64; O2SAT 95; BMI 27.8
--- OUTSIDE RECORDS SUMMARY | 2024-12-16 09:25 | XMS_ITS | Encounter Summary ---
Author Organization [employer] [facility] Address [address] [place] [address] Care Team Providers Care Tire Specialist Name Role Phone Unavailable Primary Care [...]
--- OUTSIDE RECORDS SUMMARY | 2024-12-16 09:25 | XMS_ITS | Encounter Summary ---
Author Organization [employer] [facility] Address [address] [place] [address] Care Team Providers Care Hplc Chemist Name Role Phone Unavailable Primary Care Provider [...]
--- OUTSIDE RECORDS SUMMARY | 2024-12-16 09:25 | XMS_ITS | Clinical Summary ---
Author Organization [employer] [facility] Address [address] 7t [place] [address] Care Team Providers Care Statistical Analyst Name Role Phone Unavailable Primary Care Provider [...] 3 - 19+ 3-dose series) 01/08/2018 12/11/2017 Zoster Vaccines (2 of 2) 01/23/2024 11/28/2023 Dental Oral Exam 05/08/2024 11/05/2023, 10/17/2022 Dental Prophylaxis 05/08/2024 11/05/2023, 10/17/2022 Dental X-Ray: Bitewings 11/05/2024 11/05/19 24, 06/10/2023, 10/17/2022 COVID-19 Vaccine (3 - 2024-2 6 season) 2024 08/23/2020, 07/26/2020 Influenza Vaccine (#1) 2024 Tobacco Screening 12/09/2024 [...] [address] [place] [id number] DENTAL - HSN PARTIAL (MEDICAID) * Guarantor: Xena Love Account Type Relation to Patient Date of Phone Billing Address Personal/Family Self 1960 [address] [place] [id number] * Guarantor: Xena Love Account Type Relation to Patient Date of Phone Billing Address Personal/Family Self [address] [place] [address] * Guarantor: Xena Love Account Type Relation to Patient Date of Phone Billing Address Personal/Family Self [address] [place] [address] * Guarantor: Xena Love Account Type Relation to Patient Date of Phone Billing Address Personal/Family Self [address] [place] [id number]
== END 2024-12-16 08:46 | disposition home or self-care (01) ==
LOC: HO.HGI 08:25
PROVIDERS: Visit Provider Nurse Practitioner Family
DX: K58.9 Irritable bowel syndrome, unspecified (principal); K21.9 Gastro-esophageal reflux disease without esophagitis; K64.9 Unspecified hemorrhoids; R10.13 Epigastric pain; K59.01 Slow transit constipation; R10.11 Right upper quadrant pain
CPT/HCPCS: 99214

== ENCOUNTER → 2024-12-16 08:24 | Outpatient (BNVA) | payer SELFPAY | PROVIDERS: Visit Provider Nurse Practitioner Family | DX: K21.9 Gastro-esophageal reflux disease without esophagitis (principal); K58.9 Irritable bowel syndrome, unspecified; K59.01 Slow transit constipation; K64.9 Unspecified hemorrhoids; R10.13 Epigastric pain; R10.11 Right upper quadrant pain | CPT/HCPCS: 99212 ==

== ENCOUNTER 2025-01-11 09:05 | Outpatient (RCR) | payer OTHER, SELFPAY ==
--- NOTE | 2024-12-14 14:49 | MHC.OT.OEV ---
[facility] Office [address] [phone] F: [phone] F: [phone] Occupational Therapy Evaluation Patient Name: Xena Beaver Diagnosis: (B)basal joint arthritis Date of Onset: Date of Surgery: Attending Provider: Paramjit Ag Prescribed Treatment: MD Follow Up Appointment: History of Current Condition: Patient is a 64 female with PMHx of kidney stones, hypothyroid, who was referred to skilled OT for pain of (B)hands with diagnosis of (B)CMC arthritis. Patient reported having pain for the last 3-4months but it has now become worse . She describes a sharp pain at the CMCj (B'l) 6/10 pain at rest and 8/10 pain during movement. States numbness/tingling every once in a while. She was provided with comfort cool thumb spicas which she is wearing. 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 She lives with her and 2 sons in a single family home and PLOF (I)ADLs/IADLs. She is having difficulty with opening jars. Significant Medical History: Precautions/Contraindications: Wart of hand Annual physical exam Tubular adenoma Impaired glucose tolerance COVID-19 virus infection Hemorrhoid Colon cancer screening Myalgia Cervical cancer screening SOB (shortness of breath) RUQ abdominal pain Obesity (BMI 30.0-34.9) Endocervical polyp Hematuria Facial lesion Abdominal bloating Exposure to COVID-19 virus Peripheral vascular disease History of renal calculi Mixed stress and urge urinary incontinence Anemia GERD (gastroesophageal reflux disease) Insomnia Vitamin D deficiency Hypothyroid Hypercholesterolemia Patient Goals: Hand Dominance: Right Observations: QuickDASH Score: Prior Level of Function and Occupation Self Care, Employment, Leisure: (I)ADLs/IADLs walking Living Situation, Family and/or Social Support: Lives with and adult sons Current Level of Function and Occupation Self Care, Employment, Leisure: min (A) ADLs/IADLs Sleep: will occasionally wake due to pain Driving: (I) driving Vision: Balance: Pain Assessment Pain Score: 8 Pain Scale Used: Pain Location and Description: 6/10 at rest 8/10 during movement sharp Aggravating Factors: Alleviating Factors: ibuprofen Skin and Soft Tissue Assessment Skin and Soft Tissue: Comments: No thenar wasting Heberden's nodules present Nerve assessment Ulnar Nerve: Median Nerve: Radial Nerve: Comments: Sensory Assessment Temperature: Light Touch: Proprioception: Vibration: Comments: Edema Assessment Upper Extremity: Lower Extremity: Comments: (R)18.9 palm, 15.3cm wrist = 34.2cm (L)18 palm, 15cm wrist = 33 Dexterity Assessment Dexterity: Comments: Special Tests Comments: Phanlen's (-) AROM(PROM) Strength Cervical Cervical Flexion: Cervical Extension: Cervical Lateral Flexion: Cervical Rotation: Comments: Shoulder Flexion: Extension: Abduction: Internal Rotation: External Rotation: Comments: Flexion: Extension: Abduction: Internal Rotation: External Rotation: Comments: Elbow Flexion: Extension: Pronation: Supination: Comments: Flexion: Extension: Pronation: Supination: Comments: Wrist Flexion: Extension: Ulnar Deviation: Radial Deviation: Comments: Flexion: Extension: Ulnar Deviation: Radial Deviation: Comments: Thumb Thumb CMC Flexion: Thumb MCP Flexion: (L)50, (R)44 Thumb IP Flexion: (L)64, (R)42 Radial Abduction: (L)86, (R)95 [place] Abduction: (L)75, (R)75 [place] ([place] 0-10): Comments: Digits Index MCP: PIP: DIP: Long MCP: PIP: DIP: Ring MCP: PIP: DIP: Small MCP: PIP: DIP: Comments: WFL Gross Grasp: (L)30 (R)44 Lateral Pinch: Two-Point Pinch: Three-Jaw Chance: Comments: Patient Education Primary Language: Oral Pathologist Required: No Current Knowledge: Understands information with skills for self-management Teaching Method: Verbal Education Needs Identified on Evaluation: ADL's Disease Information Equipment Use Exercise Pain How did patient/family demonstrate learning? Patient demonstrates Patient verbalizes Barriers to Learning: None Readiness for Learning: Accepting Who was educated? Patient Comments: Plan of Care Assessment: Based on initial OT evaluation patient presents with impaired ROM, pain, edema and impaired performance during self care tasks. Due to the documented impairments it is recommended that patient receive a short course of therapy in order to for patient to achieve her PLOF. Thank you for your referral. STG Duration: 2 weeks Short Term Goals: Patient will report 6/10 pain in (B)hands during movement Patient will increase (R)IP flexion to 52 Patient will increase (L)IP flexion to 75 Patient will increase (R)knotting machine operator strength to 54 lbs. Patient will increase (L)knotting machine operator strength to 40 lbs. Patient will be (I)joint protection techniques LTG Duration: 4 weeks Usp Goals: Patient will report 1/10 pain in (B)hands during movement Patient will have (B)thumb ROM WFLs Patient will be (I) with HEP Frequency and Duration: The patient will be seen 1x a week for 4 weeks Treatment Plan: Therapeutic Exercise Therapeutic Activity Home Exercise Program Splinting Neuro Re-ed Patient Education Desensitization/Sensory Re-ed Edema Control ADL Training Ultrasound NMES Iontophoresis Paraffin Fluidotherapy MHP Cold Packs Joint Mobilization Soft Tissue Mobilization Kinesiotaping skilled OT eval and treat Electronically Signed By: Tiffany Dumont OTR/L, CLT Reviewed/agree with student documentation: Therapist: Please sign and return to therapist, Thank you for your referral.
--- NOTE | 2025-01-11 10:00 | MHC.OT.DC ---
[facility] Office [address] [phone] F: [phone] F: [phone] Occupational Therapy Discharge Note Patient Name: Xena Beaver Provider: Paramjit Ag Diagnosis: (B)basal joint arthritis Date of Surgery: Date of Evaluation: 12/14/24 Date of Discharge: Treatments to Date: 4 Cancellations to Date: No Shows to Date: Discharge Status: Improved Function Independent with HEP Discharge Summary: Patient is d/c'd form skilled OT services as she has achieved her maximal potential. She is (I)with her HEP and joint protection techniques, she was also provided with AE for ADL performance. Thank you for your referral, she was a pleasure to work with. Electronically Signed By: Tiffany Dumont OTR/L, CLT Reviewed/agree with student documentation: Therapist: Please Sign and return to therapist, thank you for your referral.
== END 2025-01-11 10:01 | disposition home or self-care (01) ==
LOC: HO.OT 09:05
PROVIDERS: PCP Internal Medicine
DX: M18.0 Bilateral primary osteoarthritis of first carpometacarpal joints (principal)
CPT/HCPCS: 97110; 97140; 97165; 97535

== ENCOUNTER → 2025-01-24 08:28 | Outpatient (REF) | payer OTHER, SELFPAY ==
--- NOTE | ~2025-01-24 | NM_ITS ---
EXERCISE MYOCARDIAL PERFUSION STUDY INDICATION: Abnormal stress test evaluate for myocardial ischemia TECHNIQUE: The patient was brought in for an exercise perfusion study on 01/24/2025. Patient performed exercise as per Lance protocol and was injected 25 mCi of sestamibi once target heart rate was achieved. Images were obtained using the SPECT gamma camera interlaced with the gating device. Images were obtained in supine position. Resting perfusion study was performed on 01/25/2025. Patient was administered 25 mCi of sestamibi intravenously at rest. Images were then obtained in supine position. Images obtained without without CT attenuation. Total DLP 72 mGy-cm. Images were processed with the software and compared side to side in short axis, horizontal long axis and vertical long axis views. FINDINGS: Raw images were reviewed The stress perfusion study showed nonattenuated images show small area of moderately reduced uptake in the apex of the LV myocardium. Attenuated corrected images show mildly reduced uptake in the apex of the LV myocardium. Remainder of the LV myocardium is normally perfused. The gated study shows normal LV systolic function with calculated LVEF of 74%. LV cavity is normal in size. The gated study shows normal systolic wall thickening and contraction of segments. Resting study shows no change in perfusion pattern compared to stress perfusion study. Gating at rest reveals no systolic wall motion with ejection fraction at 75%. The findings are consistent with fixed apical defect most likely attenuation artifact as well as normal systolic thickening of the apex.. NM/NM cardiolite stress test IMPRESSION: 1. Myocardial perfusion imaging study shows likely normal myocardial perfusion. 2. Gated LVEF is 74%. 3. Transient ischemic dilatation not present. EKG revealed [negative for ischemia. Electronically signed by: Chad Youngblood MD 01/26/2025 04:02 PM EDT
--- NOTE | 2025-01-24 08:32 | CA_ITS ---
Acquisition Time: 2025-01-24 08:37:16 Total Exercise Time: 00:07:15 Test Indications: CP Medications: SEE H7P Protocol: TIN Max HR: 130 BPM 82% of Pred: 158 BPM Max BP: 138/68 mmHG Max Work Load: 5.5 METS Exercise stress test with exercise 7 mins 15 secs of Tin Protocol at a rediced speed of 1.7mph, with reports of 6/10 left sided chest tightness and mild SOB, without any arrythmias, with normotensive response to exercise. Without any EKG changes meeting criteria for ischemia. In recovery, chest tightness improved and breathing returned to baseline. Nuclear images pending. Test reviewed with Dr. Youngblood. Referred By: Li Brink Electronically Signed By: Lazaro Morel
--- OUTSIDE RECORDS SUMMARY | 2025-01-24 08:53 | XMS_ITS | Clinical Summary ---
Author Organization [facility] Address [address]t [place] [address] Care Team Providers Care Welder Fitter Arc Name Role Phone Unavailable Primary Care Provider [...] [address] [place] [address] DENTAL - HSN PARTIAL (MEDICAID) * Guarantor: Xena Love Account Type Relation to Patient Date of Phone Billing Address Personal/Family Self [address] [place] [id number] * Guarantor: Xena oLve Account Type Relation to Patient Date of Phone Billing Address Personal/Family Self [address] [place] [address] * Guarantor: Xena Love Account Type Relation to Patient Date of Phone Billing Address Personal/Family Self [address] [place] [id number] * Guarantor: Xena Love Account Type Relation to Patient Date of Phone Billing Address Personal/Family Self [address] [place] [id number]
--- OUTSIDE RECORDS SUMMARY | 2025-01-24 08:53 | XMS_ITS | Encounter Summary ---
Author Organization [employer] [facility] Address [address] [place] [address] Care Team Providers Care Flat Surfacer Name Role Phone Unavailable Primary Care Provider [...]
--- OUTSIDE RECORDS SUMMARY | 2025-01-24 08:53 | XMS_ITS | Encounter Summary ---
Author Organization [employer] [facility] Address [address] [place] [address] Care Team Providers Care Dye Colorist Dyer Name Role Phone Unavailable Primary Care Provider [...]
== END ==
LOC: HO.CARD 08:28
PROVIDERS: PCP Internal Medicine
DX: R94.39 Abnormal result of other cardiovascular function study (principal)
CPT/HCPCS: 78452; 93017; A9500

== ENCOUNTER → 2025-01-24 08:32 | Outpatient (BNV) | payer OTHER, SELFPAY | PROVIDERS: PCP Internal Medicine | DX: R94.31 Abnormal electrocardiogram [ECG] [EKG] (principal) | CPT/HCPCS: 78452; 93016; 93018 ==

== ENCOUNTER 2025-01-28 10:08 | Outpatient (AMB) | payer OTHER, SELFPAY ==
--- NOTE | 2025-01-28 10:08 | MHC.OFFWIV ---
Intake Vital Signs 01/28/25 10:09 Height 5 ft 4 in Weight 162 lb BMI 27.8 BP 128/72 Blood Pressure Location Rt brachial Position Sitting Pulse 62 Pulse Source Pulse Oximeter Temp 97.9 F Temp Source Oral Pulse Oximetry (%) 97 Oxygen Delivery Method Room Air Intake Visit Reasons: EP - Back Pain Intake Note: Patient presents with c/o pain in both buttocks that radiates down right leg & pain in both hands - ongoing problem but has worsened the past week. Patient Tobacco Use Status: Former Tobacco user Allergies No Known Allergies (No Known Allergies*) Allergy (Verified 01/28/25 10:13) Do you need a note to return to daycare/school/sports/work: No HPI HPI Comments History of Present Illness Details History of Present Illness - The patient is a 64-year-old female presenting with bilateral wrist pain and leg pain with cramping. - Osteoarthritis of the thumbs was diagnosed by an senior analysis specialist on December 03, and the patient was provided with a wrist brace. - The patient reports bilateral wrist pain worsening over the past few days, despite using a wrist brace. - Leg pain is described as cramping, with no relief from current interventions. - The patient has tried using a hospital-prescribed medication, which has not been effective. Review of Systems - Musculoskeletal: Reports bilateral wrist pain and leg cramping. Denies back pain. All systems reviewed and are unremarkable except as noted in HPI Physical Exam General: Cooperative, healthy appearing, comfortable, no acute distress and well developed Orientation: Patient oriented x3 Limitations: No limitations Head: Normal to inspection Ears: Hearing grossly normal bilaterally Nose: Normal External nose present Face and sinus: Normal facial exam Eyes: Appearance normal, both eyes and all related structures Neck: Normal visual inspection and Yes full ROM Respiratory: Normal respiratory effort and able to speak in complete sentences. Skin: No rashes or lesions noted Neuro: Patient oriented x3 Extremities: Distal pain in both wrists, osteoarthritis of the thumbs noted, cramping in legs, normal to inspection [facility] Medical History Wart of hand Annual physical exam Tubular adenoma Impaired glucose tolerance COVID-19 virus infection Hemorrhoid Colon cancer screening Myalgia Cervical cancer screening SOB (shortness of breath) RUQ abdominal pain Obesity (BMI 30.0-34.9) Endocervical polyp Hematuria Facial lesion Abdominal bloating Exposure to COVID-19 virus Peripheral vascular disease History of renal calculi Mixed stress and urge urinary incontinence Anemia GERD (gastroesophageal reflux disease) Insomnia Vitamin D deficiency Hypothyroid Hypercholesterolemia Surgical History Hx of colonoscopy History of tubal ligation Family History Father No problems noted. Mother Liver cancer Diabetes Hypertension Cirrhosis Paternal Aunt Breast cancer Father No problems noted. Mother Liver cancer Diabetes Hypertension Cirrhosis Paternal Aunt Breast cancer Social History Housing: House Alcohol intake: current Alcohol intake frequency: does not drink Comment: once a week 1 glass Patient Tobacco Use Status: Former Tobacco user Tobacco use type: Cigarette Years Smoked: 27 years old e-Cigarette/Vaping Use: Never Used Second Hand Smoke Exposure: No service: No Current occupational status: unemployed Cognitive needs: No Hearing needs: No Vision needs: Yes (Glasses) Female Reproductive History Menstrual Age of Menarche: 11 Physical Exam Vital Signs: Last Vital Signs Temp 97.9 F 01/28/25 10:09 Pulse 62 01/28/25 10:09 BP 128/72 01/28/25 10:09 Pulse Ox 97 01/28/25 10:09 Oxygen Delivery Method Room Air 01/28/25 10:09 BMI result Body Mass Index 27.8 Assessment & Plan Assessment & Plan (1) Arthritis of carpometacarpal (CMC) joint of both thumbs: Code(s): M18.0 - Bilateral primary osteoarthritis of first carpometacarpal joints Plan: Plan Patient was informed and verbally consented to the use of an ambient scribe for clinic note documentation during this visit. 1. Osteoarthritis Of The Thumbs - Prescribed diclofenac for anti-inflammatory management, advising against concurrent use with ibuprofen. - Recommended Voltaren gel for topical application to reduce systemic exposure. - Suggested trying a different wrist brace for better support and advised on range of motion exercises to prevent joint stiffness. - kidney function with current BUN, creatinine, GFR levels being normal. 2. Bilateral Wrist Pain - Left>Right - Management includes the use of diclofenac and Voltaren gel as needed. - Encouraged the use of a wrist brace and advised on periodic removal for range of motion exercises. (2) Bilateral leg cramps: Code(s): R25.2 - Cramp and spasm Plan: Leg Pain With Cramping - Prescribed a muscle relaxer with dosing instructions of one to two tablets every eight hours as needed. - Stay well hydrated (3) Injury of extensor or abductor muscles and tendons of left thumb at forearm level: Code(s): S56.302A - Unspecified injury of extensor or abductor muscles, fascia and tendons of left thumb at forearm level, initial encounter Qualifiers: Encounter type: initial encounter Qualified Code(s): S56.302A - Unspecified injury of extensor or abductor muscles, fascia and tendons of left thumb at forearm level, initial encounter Plan: as above Medications: New tizanidine 2 mg PO Q8H PRN 14 tabs 0RF muscle spasticity diclofenac sodium 50 mg PO Q12H PRN 20 tabs 0RF pain Coding Level of Care Code Est Pt Level 3 (32326) Diagnoses Arthritis of carpometacarpal (CMC) joint of both thumbs M18.0 Bilateral leg cramps R25.2 Injury of extensor or abductor muscles and tendons of left thumb at forearm level, initial encounter S56.302A Encounter type: initial encounter
[2025-01-28 10:09] VITALS: BP 128/72; PULSE 62; TEMP 36.6; O2SAT 97; BMI 27.8
--- OUTSIDE RECORDS SUMMARY | 2025-01-28 11:28 | XMS_ITS | Encounter Summary ---
Author Organization [facility] Address [address]t [place] [address] Care Team Providers Care Art History Professor Name Role Phone Unavailable Primary Care Provider [...]
--- OUTSIDE RECORDS SUMMARY | 2025-01-28 11:28 | XMS_ITS ---
Author Organization Unknown ENCOUNTERS Encounter Performer Location Date Diagnosis Diagnosis Status Pre Admit [address] [address] [id number] Outpatient [address] [address] [id number] [facility] [address] [address] [id number] [facility] Pre Admit [address] [address] [id number] Pre Admit [address] [id number] Outpatient [address] [address] [id number] [facility] [address] [address] [id number] [facility] *Note: Encounters from your own facility or health system may be excluded. Allergies, Adverse Reactions, Alerts Allergen Type Severity Identification Date Medications Name Date Quantity Days Supplied GPI Number
--- OUTSIDE RECORDS SUMMARY | 2025-01-28 11:28 | XMS_ITS | Clinical Summary ---
Author Organization [facility] [facility] Address [address] 7t [place] [address] Care Team Providers Care Mirror Finishing Machine Operator Name Role Phone Unavailable Primary [...] [address] [place] [address] DENTAL - HSN PARTIAL (MEDICAID) * Guarantor: Xena Love Account Type Relation to Patient Date of Phone Billing Address Personal/Family Self [address] [place] [id number] * Guarantor: Xena Love Account Type Relation to Patient Date of Phone Billing Address Personal/Family Self [address] [place] [address] * Guarantor: Xena Love Account Type Relation to Patient Date of Phone Billing Address Personal/Family Self [address] [place] [address] * Guarantor: Xena Love Account Type Relation to Patient Date of Phone Billing Address Personal/Family Self [address] [place] [address]
--- OUTSIDE RECORDS SUMMARY | 2025-01-28 11:28 | XMS_ITS | Encounter Summary ---
Author Organization [facility] Address [address] [place] [address] Care Team Providers Care Manager Data Name Role Phone Unavailable Primary Care Provider [...]
== END 2025-01-28 10:35 | disposition home or self-care (01) ==
PROVIDERS: PCP Internal Medicine; Visit Provider Physician Assistant
DX: M18.0 Bilateral primary osteoarthritis of first carpometacarpal joints (principal); R25.2 Cramp and spasm; S56.302A Unspecified injury of extensor or abductor muscles, fascia and tendons of left thumb at forearm level, initial encounter

== ENCOUNTER → 2025-01-28 10:08 | Outpatient (BNVA) | payer OTHER, SELFPAY | PROVIDERS: PCP Internal Medicine; Visit Provider Physician Assistant | DX: M25.532 Pain in left wrist (principal); M25.531 Pain in right wrist; M18.0 Bilateral primary osteoarthritis of first carpometacarpal joints; R25.2 Cramp and spasm; S56.302A Unspecified injury of extensor or abductor muscles, fascia and tendons of left thumb at forearm level, initial encounter; X58.XXXA Exposure to other specified factors, initial encounter; Y93.9 Activity, unspecified; Y92.9 Unspecified place or not applicable; Y99.9 Unspecified external cause status | CPT/HCPCS: 99212 ==